=== PATIENT | male | born 1985 | race Caucasian/White ===

== ENCOUNTER 2019-06-23 13:24 | Emergency (ER) | payer OTHER ==
[~2019-06-23] VITALS: Ht 180.3 cm; Wt 101.6 kg
[~2019-06-23 13:24] MED LIST: CARAFATE1 GM PO; CYCLOBENZAPRINE10 MG PO; CYMBALTA60 MG PO; DEXILANT60 MG PO; FEROSUL325 MG PO; LEXAPRO10 MG PO; NORCO 10-325 T1 EACH PO; OMEPRAZOLE20 MG PO; PANTOPRAZOLE SO40 MG PO; PROTONIX40 MG PO; ZOFRAN4 MG PO
--- OUTSIDE RECORDS SUMMARY | 2019-06-23 13:28 | XMS ---
PreManage Notification: AARON BONILLA Security Manager Transit Events No recent Security Events currently on file [facility] There are no care providers on record at this time. Fredy has no Care Guidelines for this patient. Sharda VISIT COUNT (12 MO.) 1 [facility] TOTAL 1 NOTE: Visits indicate total known visits. ED/C VISIT TRACKING (12 MO.) 06/23/2019 13:25 [facility] [place] TYPE: Emergency COMPLAINT: - ABD PAIN INPATIENT VISIT TRACKING (12 MO.) No inpatient visits to display in this time frame [id number]
[2019-06-23] MEDS ORDERED: ZITHROMAX250 MG PO (17:53)
== END 2019-06-23 18:36 | disposition home or self-care (01) ==
LOC: ED 13:24
DX: J18.9 Pneumonia, unspecified organism (principal); Z88.5 Allergy status to narcotic agent; Z79.899 Other long term (current) drug therapy
CPT/HCPCS: 71045; 80053; 81001; 85025; 87502; 96361; 96374; 96375; 99283-25; J1885; J2405; J7030

== ENCOUNTER 2019-06-25 18:32 | Emergency (ER) | payer OTHER ==
[~2019-06-25] VITALS: Ht 180.3 cm; Wt 101.6 kg
[~2019-06-25 18:32] MED LIST changes: +ZITHROMAX250 MG PO
--- OUTSIDE RECORDS SUMMARY | 2019-06-25 18:34 | XMS ---
PreManage Notification: AARON BONILLA Security Rn Clinical Appeals Events No recent Security Events currently on file CRITERIA MET - [facility] [place] - 2 Visits in 30 Days CARE PROVIDERS There are no care providers on record at this time. Fredy has no Care Guidelines for this patient. [facility]: Visits indicate total known visits. ED/UCC VISIT TRACKING (12 MO.) 06/25/2019 18:[address] [facility] [place] TYPE: Emergency COMPLAINT: - SOB/COUGH 06/23/2019 13:25 [facility] [place] TYPE: Emergency COMPLAINT: - ABD PAIN INPATIENT VISIT TRACKING (12 MO.) No inpatient visits to display in this time frame [id number]
[2019-06-25] MEDS ORDERED: ULTRAM50 MG PO (19:53)
[2019-06-25] MEDS ORDERED: LEVAQUIN750 MG PO (19:53)
== END 2019-06-25 20:04 | disposition home or self-care (01) ==
LOC: ED 18:32
DX: J18.1 Lobar pneumonia, unspecified organism (principal); M54.9 Dorsalgia, unspecified; Z88.5 Allergy status to narcotic agent; Z79.899 Other long term (current) drug therapy
CPT/HCPCS: 71046; 99283-25

== ENCOUNTER 2020-02-05 22:42 | Emergency (ER) | payer OTHER ==
[~2020-02-05] VITALS: Ht 180.3 cm; Wt 102.1 kg
--- OUTSIDE RECORDS SUMMARY | ~2020-02-05 | XMS | Encounter Summary ---
Demographics + + + | Address | [address] | | | [place] [address] | + + + | Home Phone | | + + + | Preferred Language | Unknown | + + + | Marital Status | | + + + | Hinduism Affiliation | Unknown | + + + | Race | White | + + + | Ethnic Group | Not or | + + + Author + + + | Author | [facility] | | | and [place] | + + + | Organization | [facility] | | | and [place] | + + + | Address | Unknown | + + + | Phone | Unavailable | + + + Support + + + + + | Name | Relationship | Address | Phone | + + + + + | Scout Balderas | ECON | [address] | | | | | [place] | | | | | [phone] | | + + + + + | Bessie Vizcaino | ECON | [place] | | | | | [phone] | | + + + + + Care Team Providers + +------+ + | Care Header Dock Name | Role | Phone | + +------+ + | Jose Manuel Zuñiga DO | PCP | | + +------+ + Encounter Details +--------+ + + + + | Date | Type | Department | Care Team | Description | +--------+ + + + + | 08/12/ | Hospital | [facility] | Kg, | Cavitary lesion of | | 2014 - | Encounter | [facility] | MD [address] | lung; SOB (shortness | | | | C[address] | of breath); GERD | | 08/16/ | | [address] | [place] [address] | (gastroesophageal | | 2013 | | [place], [place] | [phone] | reflux disease); | | | | [phone] | | Back pain; Cough; | | | | [phone] | | Anxiety state, | | | | | | unspecified | +--------+ + + + + Social History + +-------+ +--------+------+ | Tobacco Use | Types | Packs/Day | Years | Date | | | | | Used | | + +-------+ +--------+------+ | Never Assessed | | | | | + +-------+ +--------+------+ + + + | Sex Assigned at | Date Recorded | | | | + + + | Not on file | | + + + documented as of this encounter Discharge Summaries Luna Chi MD - 08/16/2013 8:39 AM PDT Discharge Summaries by Luna Chi MD at 08/16/13 0839 Author: Luna Chi MD Service: (none) Author Type: Physician Filed: 08/16/13 1633 Date of Service: 08/16/1339 Status: Signed Foot Caster: Luna Chi MD (Physician) Related Notes: Original Note by Luna Chi MD (Physician) filed at 08/16/13 0843 [facility] Service: Hospitalist Physician Discharge Summary Patient ID: Aaron Balderas [id number] 28 y.o. Admit date: 08/12/2013 Discharge date: 08/16/2013 Admitting Physician: Reg Saul MD Discharge Physician: Luna Chi MD Consultants: Treatment Team: Consulting Physician: Elvira García MD Consulting Physician: Hermilo Roberts MD Admitting Provider: Reg Saul MD Primary Discharge Diagnoses: *Cavitary lesion of lung status post bronchoscopy by Dr. Roberts Secondary Discharge Diagnoses: Cough GERD (gastroesophageal reflux disease) Back pain Anxiety state, unspecified HPI and Hospital Course: The patient is a 28 y.o. male with significant past medical history of PUD, GERD who prese nts with Cough, SOB, nausea The patient is a 28-year-old male with a significant past medical history of peptic ulcer d isease and GERD who was transferred from [facility] due to cough, shortness of b reath, and nausea. The patient refers in the last month a weight loss of around 10 pounds. Bib loya have been accompanied in the past week with a sudden cough, initially dry, then subsequ ently productive, with greenish sputum and some tinged with blood in the sputum and some christo rtness of breath at maximal activity. The patient denies any fever but positive chills. Lauro es being out of the country, denies any pets at home, no alcohol intake, but does refer zak re acid reflux to the point that he needs to sleep at 35 degrees and the reports episod es of aspiration in the middle of the night. The patient did have an EGD last summer where loco guerrero was diagnosed with severe acid reflux and peptic ulcer disease for which he is taking PPI therapy. He started developing besides the cough and shortness of breath, nausea and headache, reaso n why he went to the hospital at [facility] for further assessment and treatment . In [facility], a CT of the chest showed an infiltrate surrounding a cavitary l esion in the left posterior lung, reason why the patient was transferred here at [facility] for further assessment and treatment. Here at [facility], the patient has been hemodynamically stable and will be admitted under the hospitalist service. The patient was admitted with cavitary lung lesion. Pulmonary consult was obtained by Dr. Bib aquino, also infectious diseases consult was obtained. He was started empirically on clindamycin . The patient underwent bronchoscopy, which did not show definite mass. Biopsy results are s till pending. Dr. Roberts recommended clindamycin. The patient was seen this morning by Dr. Rouse and will be discharged home on oral clindamycin. The patient had significant anxiety requiring Ativan. He will be discharged home on Xanax. I have discussed with the patient that he will not receive a lot of Xanax as this can be add icting. He verbalized understanding. The patient also complained of pain in the thoracic area. MRI was done which showed no acut e findings. The patient has remained hemodynamically stable, ambulating. He will follow up with Dr. Roberts and with infectious diseases as outpatient. Plan has been discussed in detail with the lamar ent and his and all questions were answered. Past Medical History: Past Medical History Diagnosis Date Kidney stones Past Surgical History Procedure Date Cholecystectomy Unlisted procedure arthroscopy left knee Bronchoscopy 08/15/2013 Procedure: BRONCHOSCOPY; Surgeon: Hermilo Roberts MD; Location: [facility]; Service: Pulmonary; Laterality: Bilateral; NPO after 8 am. He had clear liquid for breakfast today . Discharged Condition: Stable for discharge as stated above. Significant Diagnostic Studies: Mri Thoracic Spine With And Without Contrast 08/14/2013 1. Normal MRI examination of the thoracic spine. X-ray Chest 1 View 08/15/2013 1. No evidence of pneumothorax following bronchoscopy. X-ray C-arm Fluoro Up To 1 Hour 08/15/2013 1. Procedural films, as above. Discharge Vitals: Filed Vitals: 08/15/13 1913 08/16/13 0002 08/16/13 0333 08/16/13 0754 BP: 106/58 108/51 107/51 117/59 Pulse: 51 50 50 55 Temp: 97.4 F (36.3 C) 97.6 F (36.4 C) 98.6 F (37 C) 97.9 F (36.6 C) TempSrc: Temporal Oral Temporal Oral Resp: 16 16 16 14 Height: Weight: 92.5 kg (203 lb 14.8 oz) SpO2: 98% 96% 98% 97% Discharge Exam: General: Well nourished. Psych: Alert and oriented x 3. Calm, cooperative. Cardiovascular: Regular rate and rhythm, no murmurs, no thrills. Normal PMI. Respiratory: Clear to auscultation, no wheezing or crackles, breathing non labored. Tendern ess present left lower chest wall Gastrointestinal: Soft, non-tender, non-distended, positive bowel sounds. No HSM. Musculoskeletal: No edema in bilateral lower extremities. No joint swelling. Tenderness pr esent over mid thoracic spine Skin: Warm and dry, no rashes. Neck: No JVD, Trachea midline. Neurological: Non focal. Motor grossly intact. LABS: Lab 08/16/1345708/15/132 08/14/13 0436 WBC 9.9 5.9 6.5 RBC 5.27 5.39 5.28 HGB 15.3 15.4 15.2 HCT 44.4 45.8 44.9 MCV 84.2 85.1 85.1 MCH 29.0 28.6 28.8 MCHC 34.5 33.5 33.9 RDW 36.8* 36.8* 38.1 PLT 272 217 247 MPV 8.0 7.7 7.9 DIFFTYPE MANUAL AUTOMATED AUTOMATED Lab 08/16/1345708/15/13 0502 08/14/13 0436 08/12/13 0526 NA 134* 139 139 -- K 4.2 3.9 4.1 -- CL 102 102 106 -- CO2 27 29 28 -- BUN 14 13 15 -- CREATININE 0.93 0.96 1.04 -- CALCIUM -- -- -- -- PROT -- -- -- 6.3 BILITOT -- -- -- 1.7* ALKPHOS -- -- -- -- ALT -- -- -- 24 AST -- -- -- 20 GLUF 116* 93 93 -- No results found for this basename: CKTOTAL:3,TROPONINI:3,TROPONINT:3,CKMBINDEX:[address] 168 hours Lab 08/12/13 0526 PHOS 2.7 Lab 08/12/13 0526 MG 2.3 Disposition: Home Follow up: OSWALDO Ritter In 1 week Hermilo Roberts MD [address] [address] Schedule an appointment as soon as possible for a visit in [address] [place] [address] Schedule an appointment as soon as possible for a visit in 1 week Medication List As of 08/16/2013 8:39 AM START taking these medications ALPRAZolam 0.25 MG tablet QTY: 30 tablet Refills: 0 Commonly known as: XANAX Take 1 tablet by mouth 2 (two) times daily as needed for Anxiety. clindamycin 300 MG capsule QTY: 40 capsule Refills: 0 Commonly known as: CLEOCIN Take 1 capsule by mouth every 6 (six) hours. lactobacillus granules QTY: 20 packet Refills: 0 Take 1 packet by mouth 2 (two) times daily. 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 You may get these medications from any pharmacy. ALPRAZolam 0.25 MG tablet clindamycin 300 MG capsule lactobacillus granules Luna Chi MD 08/16/2013 8:39 AM Discharge took minutes, to include final examination, discussion of admission, and prepar ation of prescriptions, instructions for ongoing care, follow up and dictation of summary. This entry has been created using [employer] Speech Recognition software and [employer]. The entry has been reviewed and there may still exist sound alike word errors. documented in th is encounter Progress Notes Conversion Transaction, Provider Unknown - 08/16/2013 9:39 AM PDTFormatting of this note m ight be different from the original. Therapy Progress Note by AKHIL Estevez at 08/16/13 09 Author: AKHIL Estevez Service: (none) Author Type: Massage Therapist Filed: 08/16/13938 Date of Service: 08/16/13938 Status: Signed Foot Caster: AKHIL Estevez (Massage Therapist) 08/16/13 0939 MT Last Visit MT Received On 08/16/13 MT Therapy Visit Refused Kevin Swann DO - 08/16/2013 8:02 AM PDTFormatting of this note might be different from the delmar ginal. Progress Notes by Kevin Rouse DO at 08/16/13 0802 Author: Kevin Rouse DO Service: (none) Author Type: Physician Filed: 08/16/13 0823 Date of Service: 08/16/1302 Status: Addendum Foot Caster: Kevin Rouse DO (Physician) Related Notes: Original Note by Kevin Rouse DO (Physician) filed at 08/16/13 0821 [facility] Service: Infectious Disease Progress Note Hospital Day: LOS: 4 days Post-Op Day: * No surgery found * SUBJECTIVE Patient Summary: The patient is a 28 y.o. male with no significant past medical histo ry admitted with cough and presence of cavitary lesion on CT scan. Patient first presented to [facility] on 08/11 with complaints of cough that was productive of greenish sputum. There is some history of loss of weight. A CT scan done ther e shows presence of a cavitary mass about 3 cm in the left lung base. Presence of dilated es ophagus. No significant adenopathy noted but possible thymus tissue-2 cm soft tissue density in the anterior mediastinum. At that time he had a marginal white count of 11.2, ESR was on ly 14, creatinine normal, CMP normal. Patient does have a history of GERD with the need to lie down at at least 35 at night. No history of exposure to sick contacts. No travel outside of [place]. Smoking -patient has smoked for about 2 years past quit and then again smoked for about 4 m onths. Not a heavy smoker. CC: Cavitary lesion Chart reviewed: No new events. Subjective The patient reports that he has some pain in his anterior chest with cough or deep inspirat ion, but pain in the posterior chest is improved. He denies any shortness of breath. No fe vers, chills, nausea or vomiting. He is feeling better overall and is hoping that he can go home today. He asked whether he can be given something for anxiety when he is discharged. ROS No fever, chills sweats. No nausea, vomiting or diarrhea. No rashes or pruritis. No oral pa in. Scheduled Medications [COMPLETED] benzocaine [] benzocaine clindamycin 600 mg Intravenous Q8H [] fentaNYL lidocaine 1 patch Transdermal Daily [] midazolam nicotine 1 patch Transdermal Daily pantoprazole 40 mg Intravenous BID [DISCONTINUED] cefTRIAXone 2 g Intravenous Q24H [DISCONTINUED] clindamycin 600 mg Intravenous Q8H [DISCONTINUED] cocaine [DISCONTINUED] EPINEPHrine (1:10,000) Continuous Infusions PRN Medications acetaminophen, acetaminophen, diphenhydrAMINE, fentaNYL, fentaNYL, ipratropium-albuterol, L ORazepam, ondansetron, ondansetron, polyethylene glycol, promethazine, sodium chloride 0.9 % , traMADol, zolpidem, [DISCONTINUED] fentaNYL, [DISCONTINUED] fentaNYL, [DISCONTINUED] meper idine, [DISCONTINUED] meperidine, [DISCONTINUED] meperidine, [DISCONTINUED] metoclopramide, [DISCONTINUED] naloxone, [DISCONTINUED] ondansetron, [DISCONTINUED] promethazine OBJECTIVE Vital Signs: BP 117/59 | Pulse 55 | Temp 97.9 F (36.6 C) (Oral) | Resp 14 | Ht 1.803 m (5' 11") | Wt 92.5 kg (203 lb 14.8 oz) | BMI 28.45 kg/m2 | SpO2 97% Temp: [97.4 F (36.3 C)-98.6 F (37 C)] 97.9 F (36.6 C) (08/16 753) BP: (98-119)/(40-59) 117/59 mmHg (08/16 753) Heart Rate: [50-65] 55 (08/16 753) Resp: [14-20] 14 (08/16 753) SpO2: [96 %-100 %] 97 % (08/16 753) Weight: [92.5 kg (203 lb 14.8 oz)] 92.5 kg (203 lb 14.8 oz) (08/16 332) Exam: Const: Vitals reviewed. No acute distress Skin: No rashes, no edema ENT: No thrush. Lungs: CTAB, no rales or wheezes Heart: RRR, no murmur Abd: soft, NT, + bowel sounds Musculoskeletal: No tenderness to palpation in thoracic spine. DATA CBC: Lab Results Component Value Date WBC 9.9 08/16/2013 RBC 5.27 08/16/2013 HGB 15.3 08/16/2013 HCT 44.4 08/16/2013 MCV 84.2 08/16/2013 MCH 29.0 08/16/2013 MCHC 34.5 08/16/2013 RDW 36.8* 08/16/2013 PLT 272 08/16/2013 MPV 8.0 08/16/2013 DIFFTYPE MANUAL 08/16/2013 WBC: Lab Results Component Value Date WBC 9.9 08/16/2013 NEUTABSMAN 8.2* 08/16/2013 NEUTROABS 2.9 08/15/2013 NEUTROMAN 83 08/16/2013 LYMPHOABS 1.2 08/16/2013 LYMPHOMAN 12 08/16/2013 LYMPHSABS 2.3 08/15/2013 LYMPHOPCT 39.6 08/15/2013 MONOABSMAN 0.5 08/16/2013 MONOMAN 5 08/16/2013 MONOPCT 7.5 08/15/2013 EOSABS 0.2 08/15/2013 EOSPCT 2.8 08/15/2013 BASOSABS 0.1 08/15/2013 BASOPCT 1.0 08/15/2013 CMP: Lab Results Component Value Date NA 134* 08/16/2013 K 4.2 08/16/2013 CL 102 08/16/2013 CO2 27 08/16/2013 ANIONGAP 9 08/16/2013 GLUF 116* 08/16/2013 BUN 14 08/16/2013 CREATININE 0.93 08/16/2013 BCR 15 08/16/2013 CA 9.6 08/16/2013 PROT 6.3 08/12/2013 ALB 4.0 08/12/2013 GLOB 2.3 08/12/2013 BILITOT 1.7* 08/12/2013 ALP 68 08/12/2013 AST 20 08/12/2013 ALT 24 08/12/2013 EGFR >60 08/16/2013 Microbiology: Cultures from bronchoscopy pending. Path pending. Medical imaging: Chest x-ray performed following bronchoscopy was viewed in PACS. No evide nce of pneumothorax. No focal consolidation or infiltrates. The area of masslike cavitary lesion in the posterior right lung is not appreciated on plain film to my view. Radiology r eport agrees with absence of pneumothorax. PROBLEM LIST Principal Problem: *Cavitary lesion of lung Active Problems: Cough GERD (gastroesophageal reflux disease) Back pain Anxiety state, unspecified ASSESSMENT & PLAN Cavitary lesion of lung Radiographic appearance and absence of systemic symptoms are most suggestive of malignancy, although indolent infectious etiology is also possible. Appreciate bronchoscopy and biopsy . After blood cultures should be available within the next few days, although cultures for some of the more fasting these organisms such as Nocardia could take over a week. We will c ontinue clindamycin for now which can be given orally. Followup in the ID clinic in 1-2 wee ks to review culture results and pathology. The patient was advised to call sooner if he fitzgerald s any worsening cough, shortness of breath or fevers. Mid back pain Reassuring examination today. MRI was unremarkable previously. Anxiety Would defer to primary service and to primary care after discharge. The patient expressed understanding. Disposition: Ready for discharge from infectious diseases standpoint. He will need a ten-d ay supply of clindamycin and to followup in the ID clinic in 1-[address] Chi. Code Status: Full Code KEVIN ROUSE DO 08/16/2013 Physical Exam an, Hermilo Garcia MD - 0 08/15/2013 5:04 PM PDT Progress Notes by Hermilo Roberts MD at 08/15/131703 Author: Hermilo Roberts MD Service: (none) Author Type: Physician Filed: 08/15/131721 Date of Service: 08/15/131703 Status: Signed Foot Caster: Hermilo Roberts MD (Physician) [facility] Service: Pulmonology Progress Note Hospital Day: LOS: 3 days Post-Op Day: Day of Surgery SUBJECTIVE Patient Summary: Events Overnight: For bronchoscopy today under general anesthesia.Consent was signed last night. On IV clindamycin. Scheduled Medications [COMPLETED] benzocaine benzocaine clindamycin 600 mg Intravenous Q8H cocaine EPINEPHrine (1:10,000) fentaNYL lidocaine 1 patch Transdermal Daily midazolam nicotine 1 patch Transdermal Daily pantoprazole 40 mg Intravenous BID [DISCONTINUED] cefTRIAXone 2 g Intravenous Q24H [DISCONTINUED] clindamycin 600 mg Intravenous Q8H [DISCONTINUED] heparin (porcine) 5,000 Units Subcutaneous Q8H Continuous Infusions PRN Medications acetaminophen, acetaminophen, diphenhydrAMINE, fentaNYL, fentaNYL, ipratropium-albuterol, L ORazepam, ondansetron, ondansetron, polyethylene glycol, promethazine, sodium chloride 0.9 % , traMADol, zolpidem OBJECTIVE Vital Signs: BP 98/53 | Pulse 58 | Temp 97.9 F (36.6 C) (Oral) | Resp 16 | Ht 1.803 m (5' 11") | Wt 94.5 kg (208 lb 5.4 oz) | BMI 29.07 kg/m2 | SpO2 98% Intake/Output Summary (Last 24 hours) at 08/15/13 1708 Last data filed at 08/15/13 1512 Gross per 24 hour Intake 2002 ml Output 500 ml Net 1502 ml Physical Exam Constitutional: He appears well-developed and well-nourished. No distress. HENT: Head: Normocephalic and atraumatic. Nose: Nose normal. Mouth/Throat: Oropharynx is clear and moist. No oropharyngeal exudate. Eyes: Conjunctivae normal are normal. Pupils are equal, round, and reactive to light. No sc leral icterus. Neck: Normal range of motion. Neck supple. No JVD present. No tracheal deviation present. N o thyromegaly present. Cardiovascular: Normal rate, regular rhythm, normal heart sounds and intact distal pulses. Exam reveals no gallop and no friction rub. No murmur heard. Pulmonary/Chest: Effort normal and breath sounds normal. No stridor. No respiratory distres s. He has no wheezes. He has no rales. He exhibits no tenderness. Abdominal: Soft. Bowel sounds are normal. He exhibits no distension and no mass. There is n o tenderness. There is no rebound. Musculoskeletal: Normal range of motion. He exhibits no edema and no tenderness. Lymphadenopathy: He has no cervical adenopathy. Skin: Skin is warm. No rash noted. He is not diaphoretic. No erythema. No pallor. DATA CBC: Lab Results Component Value Date WBC 5.9 08/15/2013 RBC 5.39 08/15/2013 HGB 15.4 08/15/2013 HCT 45.8 08/15/2013 MCV 85.1 08/15/2013 MCH 28.6 08/15/2013 MCHC 33.5 08/15/2013 RDW 36.8* 08/15/2013 PLT 217 08/15/2013 MPV 7.7 08/15/2013 DIFFTYPE AUTOMATED 08/15/2013 CMP: Lab Results Component Value Date NA 139 08/15/2013 K 3.9 08/15/2013 CL 102 08/15/2013 CO2 29 08/15/2013 ANIONGAP 12 08/15/2013 GLUF 93 08/15/2013 BUN 13 08/15/2013 CREATININE 0.96 08/15/2013 BCR 14 08/15/2013 CA 8.6 08/15/2013 PROT 6.3 08/12/2013 ALB 4.0 08/12/2013 GLOB 2.3 08/12/2013 BILITOT 1.7* 08/12/2013 ALP 68 08/12/2013 AST 20 08/12/2013 ALT 24 08/12/2013 EGFR >60 08/15/2013 PT/INR: Lab Results Component Value Date INR 1.0 08/13/2013 Plarelet function screen is normal. PROBLEM LIST Principal Problem: *Cavitary lesion of lung Active Problems: Cough GERD (gastroesophageal reflux disease) Back pain Anxiety state, unspecified ASSESSMENT & PLAN CXR post bronchoscopy did not show pneumothorax. He was smiling post extubation. He tolerated the procedure very well. Continue IV clindamycin . Consider d/c tomorrow. I will be glad to see the patient next aranza wiliknson for follow up visit. Disposition: Code Status: Full Code HERMILO ROBERTS MD 08/15/2013 uresh, Elvira Paredes MD - 08/15/2013 9:08 AM PDT Progress Notes by Elvira García MD at 08/15/13 0908 Author: Elvira García MD Service: (none) Author Type: Physician Filed: 08/15/13 1030 Date of Service: 08/15/13 0908 Status: Signed Foot Caster: Elvira García MD (Physician) [facility] Service: Infectious Disease Progress Note Hospital Day: LOS: 3 days Post-Op Day: * No surgery found * SUBJECTIVE Patient Summary: The patient is a 28 y.o. male with no significant past medical histo ry admitted with cough and presence of cavitary lesion on CT scan. Patient first presented to [facility] on 08/11 with complaints of cough that was productive of greenish sputum. There is some history of loss of weight. A CT scan done ther e shows presence of a cavitary mass about 3 cm in the left lung base. Presence of dilated es ophagus. No significant adenopathy noted but possible thymus tissue-2 cm soft tissue density in the anterior mediastinum. At that time he had a marginal white count of 11.2, ESR was on ly 14, creatinine normal, CMP normal. Patient does have a history of GERD with the need to lie down at at least 35 at night. No history of exposure to sick contacts. No travel outside of [place]. Smoking -patient has smoked for about 2 years past quit and then again smoked for about 4 m onths. Not a heavy smoker. Events Overnight: Plan for bronchoscopy under general anesthesia this evening. Subjective No significant productive cough or breathlessness at this time Denies any nausea vomiting or diarrhea No rash Scheduled Medications clindamycin 600 mg Intravenous Q8H lidocaine 1 patch Transdermal Daily nicotine 1 patch Transdermal Daily pantoprazole 40 mg Intravenous BID [DISCONTINUED] cefTRIAXone 2 g Intravenous Q24H [DISCONTINUED] clindamycin 600 mg Intravenous Q8H [DISCONTINUED] heparin (porcine) 5,000 Units Subcutaneous Q8H Continuous Infusions PRN Medications acetaminophen, acetaminophen, diphenhydrAMINE, fentaNYL, fentaNYL, [COMPLETED] gadobenate d imeglumine, ipratropium-albuterol, LORazepam, ondansetron, ondansetron, polyethylene glycol, promethazine, sodium chloride 0.9 %, traMADol, zolpidem OBJECTIVE Vital Signs: BP 111/52 | Pulse 51 | Temp 97.5 F (36.4 C) (Oral) | Resp 16 | Ht 1.803 m (5' 11") | Wt 94.5 kg (208 lb 5.4 oz) | BMI 29.07 kg/m2 | SpO2 100% Temp: [97.4 F (36.3 C)-98.3 F (36.8 C)] 97.5 F (36.4 C) (08/15 714) BP: (108-113)/(50-89) 111/52 mmHg (08/15 714) Heart Rate: [51-85] 51 (08/15 714) Resp: [16-18] 16 (08/15 714) SpO2: [96 %-100 %] 100 % (08/15 714) Weight: [94.5 kg (208 lb 5.4 oz)] 94.5 kg (208 lb 5.4 oz) (08/15 0330) Vitals reviewed appears nontoxic No thrush Lungs-no significant also rhonchi appreciated Abdomen soft No rash Alert and appropriate DATA CBC: Lab Results Component Value Date WBC 5.9 08/15/2013 RBC 5.39 08/15/2013 HGB 15.4 08/15/2013 HCT 45.8 08/15/2013 MCV 85.1 08/15/2013 MCH 28.6 08/15/2013 MCHC 33.5 08/15/2013 RDW 36.8* 08/15/2013 PLT 217 08/15/2013 MPV 7.7 08/15/2013 DIFFTYPE AUTOMATED 08/15/2013 WBC: Lab Results Component Value Date WBC 5.9 08/15/2013 NEUTROABS 2.9 08/15/2013 LYMPHSABS 2.3 08/15/2013 LYMPHOPCT 39.6 08/15/2013 MONOPCT 7.5 08/15/2013 EOSABS 0.2 08/15/2013 EOSPCT 2.8 08/15/2013 BASOSABS 0.1 08/15/2013 BASOPCT 1.0 08/15/2013 CMP: Lab Results Component Value Date NA 139 08/15/2013 K 3.9 08/15/2013 CL 102 08/15/2013 CO2 29 08/15/2013 ANIONGAP 12 08/15/2013 GLUF 93 08/15/2013 BUN 13 08/15/2013 CREATININE 0.96 08/15/2013 BCR 14 08/15/2013 CA 8.6 08/15/2013 PROT 6.3 08/12/2013 ALB 4.0 08/12/2013 GLOB 2.3 08/12/2013 BILITOT 1.7* 08/12/2013 ALP 68 08/12/2013 AST 20 08/12/2013 ALT 24 08/12/2013 EGFR >60 08/15/2013 PROBLEM LIST Principal Problem: *Cavitary lesion of lung Active Problems: Cough GERD (gastroesophageal reflux disease) Back pain Anxiety state, unspecified ASSESSMENT & PLAN Cavitary lesion of lung This appears to be more of a mass that is cavitating and is concerning for tumor with secon tona cavitation. We will DC ceftriaxone-sputum positive for normal gary only Since patient did have recent worsening with the greenish sputum and presence of cavitary l esion-we will continue clindamycin for now. Noted plan for bronchoscopy later this evening. We will review reports and decide about continuation of antibiotics Dr. Rouse will be on hospital ID service from tomorrow. Code Status: Full Code Elvira García MD 08/15/2013 onversio n Transaction, Provider Unknown - 08/15/2013 8:05 AM PDTFormatting of this note might be di fferent from the original. Nurse Progress Note by Ihsan Justice RN at 08/15/13804 Author: Ihsan Justice RN Service: (none) Author Type: Registered Nurse Filed: 08/15/13813 Date of Service: 08/15/13804 Status: Signed Foot Caster: Ihsan Justice RN (Registered Nurse) Pt states that he twisted his ankle on a part of the bed. "Actually, I think I retwisted it . I twisted it before." Declines interventions at this time. Luna Conde MD - 08/15/2013 7:47 AM PDTFormatting of this note might be different from t he original. Progress Notes by Luna Chi MD at 08/15/13 0751 Author: Luna Chi MD Service: (none) Author Type: Physician Filed: 08/15/13 0754 Date of Service: 08/15/13 0783 Status: Signed Foot Caster: Luna Chi MD (Physician) [facility] Service: Hospitalist Progress Note Hospital Day: LOS: 3 days SUBJECTIVE Patient Summary: From [facility] The patient is a 28 y.o. male with significant past medical history of PUD, GERD who prese nts with Cough, SOB, nausea The patient is a 28-year-old male with a significant past medical history of peptic ulcer d isease and GERD who was transferred from [facility] due to cough, shortness of b reath, and nausea. The patient refers in the last month a weight loss of around 10 pounds. T hese have been accompanied in the past week with a sudden cough, initially dry, then subsequ ently productive, with greenish sputum and some tinged with blood in the sputum and some christo rtness of breath at maximal activity. The patient denies any fever but positive chills. Lauro rai being out of the country, denies any pets at home, no alcohol intake, but does refer zak warren acid reflux to the point that he needs to sleep at 35 degrees and the reports episod es of aspiration in the middle of the night. The patient did have an EGD last summer where loco guerrero was diagnosed with severe acid reflux and peptic ulcer disease for which he is taking PPI therapy. Tonight, he started developing besides the cough and shortness of breath, nausea and headac he, reason why he went to the hospital at [facility] for further assessment and treatment. In [facility], a CT of the chest showed an infiltrate surrounding a c avitary lesion in the left posterior lung, reason why the patient was transferred here at [facility] for further assessment and treatment. Here at [facility], the patient has been hemodynamically stable and will be admitted under the spitalist service. Events Overnight: Patient complaints of anxiety and left ankle pain. Patient states i n the night he twisted his ankle. He also complains of back pain, which is better controlled today. Cough is getting better Patient scheduled for bronchoscopy today Scheduled Medications cefTRIAXone 2 g Intravenous Q24H clindamycin 600 mg Intravenous Q8H lidocaine 1 patch Transdermal Daily nicotine 1 patch Transdermal Daily pantoprazole 40 mg Intravenous BID [DISCONTINUED] heparin (porcine) 5,000 Units Subcutaneous Q8H Continuous Infusions PRN Medications acetaminophen, acetaminophen, diphenhydrAMINE, fentaNYL, fentaNYL, [COMPLETED] gadobenate d imeglumine, ipratropium-albuterol, LORazepam, ondansetron, ondansetron, polyethylene glycol, promethazine, sodium chloride 0.9 %, traMADol, zolpidem OBJECTIVE Vital Signs: BP 111/52 | Pulse 51 | Temp 97.5 F (36.4 C) (Oral) | Resp 16 | Ht 1.803 m (5' 11") | Wt 94.5 kg (208 lb 5.4 oz) | BMI 29.07 kg/m2 | SpO2 100% Patient Vitals for the past 24 hrs: BP Temp Temp src Pulse Resp SpO2 Weight 08/15/13 0715 111/52 mmHg 97.5 F (36.4 C) Oral 51 16 100 % - 08/15/13 0330 112/50 mmHg 97.4 F (36.3 C) Oral 85 18 98 % 94.5 kg (208 lb 5.4 oz) 08/14/13 2302 108/51 mmHg 97.5 F (36.4 C) Oral 78 18 98 % - 08/14/132017 113/89 mmHg 97.8 F (36.6 C) Oral 58 18 98 % - 08/14/13 1535 113/57 mmHg 98.3 F (36.8 C) Oral 59 16 96 % - 08/14/13 1110 109/56 mmHg 98.1 F (36.7 C) Oral 66 16 97 % - Intake/Output Summary (Last 24 hours) at 08/15/13 0748 Last data filed at 08/15/13 0512 Gross per 24 hour Intake 2150 ml Output 500 ml Net 1650 ml Physical Exam: Constitutional: Alert and oriented to person, place, and time. HEENT: Neck supple, no JVD, non icteric sclera. Cardiovascular: Normal rate, regular rhythm, normal heart sounds with S1 and S2, . Exam re veals no gallop and no friction rub. No murmur heard. No S3, No S4 Pulmonary/Chest: Effort normal and breath sounds normal. No stridor. No respiratory distres s. no wheezes. no rales. exhibits no tenderness. Abdominal: Soft. Bowel sounds are normal. exhibits no distension and no mass. There is no t enderness. There is no rebound and no guarding. Extremeties/Musculoskeletal: exhibits no edema. Tenderness present over the lower thoraci c spine .minimal tenderness present over the medial aspect of the left ankle joint. No swell ing noted. Pain noted on dorsiflexion . Neurological: Alert and oriented to person, place, and time. Skin: Skin is warm and dry. Psychiatric: Patient is anxious DATA Lab 08/15/13 0502 08/14/13 0436 08/13/13 0429 WBC 5.9 6.5 6.6 RBC 5.39 5.28 4.96 HGB 15.4 15.2 14.6 HCT 45.8 44.9 42.0 MCV 85.1 85.1 84.6 MCH 28.6 28.8 29.5 MCHC 33.5 33.9 34.8 RDW 36.8* 38.1 37.6 PLT 217 247 234 MPV 7.7 7.9 8.1 DIFFTYPE AUTOMATED AUTOMATED AUTOMATED Lab 08/15/13 0502 08/14/13 0436 08/12/13 0526 NA 139 139 138 K 3.9 4.1 3.8 CL 102 106 106 CO2 29 28 28 BUN 13 15 14 CREATININE 0.96 1.04 0.89 CALCIUM -- -- -- PROT -- -- 6.3 BILITOT -- -- 1.7* ALKPHOS -- -- -- ALT -- -- 24 AST -- -- 20 GLUF 93 93 92 Lab 08/12/13 0526 PHOS 2.7 Lab 08/12/13 0526 MG 2.3 . MRI thoracic spine. No acute findings PROBLEM LIST Principal Problem: *Cavitary lesion of lung Active Problems: Cough GERD (gastroesophageal reflux disease) Back pain Anxiety state, unspecified ASSESSMENT & PLAN 1. Cavitary lung lesion. . The patient scheduled for bronchoscopy later today. Continue cli ndamycin and ceftriaxone awaiting bronchoscopy results. Patient off isolation. AFB negative x1. 2. Cough has improved. 3. Back pain. We will continue Lidoderm patch. No acute findings on MRI 4. Anxiety. Continue IV Ativan as needed. 5. GERD. Will continue proton-pump inhibitor. 6. Tobacco abuse. Continue nicotine patch. 7. DVT prophylaxis. Continue heparin. 8. Left ankle pain continue ice application. No swelling noted. Patient does not want to ge t any x-rays. Most probably sprained ankle. The plan has been discussed in detail with the patient. All questions were answered. Disposition: Pending inpatient course Code Status: Full Code Luna Chi MD 08/15/2013 7:48 AM This entry has been created using [employer] Speech Recognition software and [employer]. The entry has been reviewed and there may still exist sound alike word errors. LTan, Hermilo Garcia MD - 08/14/2013 7:09 PM PDT Progress Notes by Hermilo Roberts MD at 08/14/13 0396 Author: Hermilo Roberts MD Service: (none) Author Type: Physician Filed: 08/14/131932 Date of Service: 08/14/131908 Status: Signed Foot Caster: Hermilo Roberts MD (Physician) [facility] Service: Pulmonology Progress Note Hospital Day: LOS: 2 days Post-Op Day: * No surgery found * SUBJECTIVE Patient Summary: Events Overnight: He was transferred out of respiratory isolation since last night. L ast sputum for AFB was not collected.He is still very anxious requiring lorazepam prn. Scheduled Medications cefTRIAXone 2 g Intravenous Q24H clindamycin 600 mg Intravenous Q8H heparin (porcine) 5,000 Units Subcutaneous Q8H lidocaine 1 patch Transdermal Daily nicotine 1 patch Transdermal Daily pantoprazole 40 mg Intravenous BID Continuous Infusions PRN Medications acetaminophen, acetaminophen, diphenhydrAMINE, fentaNYL, fentaNYL, [COMPLETED] gadobenate d imeglumine, ipratropium-albuterol, LORazepam, ondansetron, ondansetron, polyethylene glycol, promethazine, sodium chloride 0.9 %, traMADol, zolpidem OBJECTIVE Vital Signs: BP 113/57 | Pulse 59 | Temp 98.3 F (36.8 C) (Oral) | Resp 16 | Ht 1.803 m (5' 11") | Wt 94.5 kg (208 lb 5.4 oz) | BMI 29.07 kg/m2 | SpO2 96% Intake/Output Summary (Last 24 hours) at 08/14/131908 Last data filed at 08/14/13 1803 Gross per 24 hour Intake 3170 ml Output 504 ml Net 2666 ml Physical Exam Constitutional: He is oriented to person, place, and time. He appears well-developed and we ll-nourished. No distress. HENT: Head: Normocephalic and atraumatic. Nose: Nose normal. Mouth/Throat: Oropharynx is clear and moist. No oropharyngeal exudate. Eyes: Conjunctivae normal are normal. Pupils are equal, round, and reactive to light. No sc leral icterus. Neck: Normal range of motion. Neck supple. No JVD present. No tracheal deviation present. N o thyromegaly present. Cardiovascular: Normal rate, regular rhythm, normal heart sounds and intact distal pulses. Exam reveals no gallop and no friction rub. No murmur heard. Pulmonary/Chest: Effort normal and breath sounds normal. No stridor. No respiratory distres s. He has no wheezes. He has no rales. He exhibits no tenderness. Abdominal: Soft. Bowel sounds are normal. He exhibits no distension and no mass. There is n o tenderness. There is no rebound and no guarding. Musculoskeletal: Normal range of motion. He exhibits no edema and no tenderness. Lymphadenopathy: He has no cervical adenopathy. Neurological: He is alert and oriented to person, place, and time. He has normal reflexes. Skin: Skin is warm. No rash noted. He is not diaphoretic. No erythema. No pallor. DATA CBC: Lab Results Component Value Date WBC 6.5 08/14/2013 RBC 5.28 08/14/2013 HGB 15.2 08/14/2013 HCT 44.9 08/14/2013 MCV 85.1 08/14/2013 MCH 28.8 08/14/2013 MCHC 33.9 08/14/2013 RDW 38.1 08/14/2013 PLT 247 08/14/2013 MPV 7.9 08/14/2013 DIFFTYPE AUTOMATED 08/14/2013 CMP: Lab Results Component Value Date NA 139 08/14/2013 K 4.1 08/14/2013 CL 106 08/14/2013 CO2 28 08/14/2013 ANIONGAP 9 08/14/2013 GLUF 93 08/14/2013 BUN 15 08/14/2013 CREATININE 1.04 08/14/2013 BCR 14 08/14/2013 CA 9.7 08/14/2013 PROT 6.3 08/12/2013 ALB 4.0 08/12/2013 GLOB 2.3 08/12/2013 BILITOT 1.7* 08/12/2013 ALP 68 08/12/2013 AST 20 08/12/2013 ALT 24 08/12/2013 EGFR >60 08/14/2013 PT/INR: Lab Results Component Value Date INR 1.0 08/13/2013 PROBLEM LIST Principal Problem: *Cavitary lesion of lung Active Problems: Cough GERD (gastroesophageal reflux disease) Back pain Anxiety state, unspecified ASSESSMENT & PLAN Schedule for bronchoscopy tomorrow under general anesthesia at 4 pm.He signed the consent. Repeat plate function screening test tomorrow am. Disposition: Code Status: Full Code HERMILO ROBERTS MD 08/14/2013 una Chi MD - 08/14/2013 12:27 PM PDT Progress Notes by Luna Chi MD at 08/14/13 1227 Author: Luna Chi MD Service: (none) Author Type: Physician Filed: 08/14/13 1228 Date of Service: 08/14/131226 Status: Signed Foot Caster: Luna Chi MD (Physician) [facility] Service: Hospitalist Progress Note Hospital Day: LOS: 2 days SUBJECTIVE Patient Summary: From [facility] The patient is a 28 y.o. male with significant past medical history of PUD, GERD who prese nts with Cough, SOB, nausea The patient is a 28-year-old male with a significant past medical history of peptic ulcer d isease and GERD who was transferred from [facility] due to cough, shortness of b reath, and nausea. The patient refers in the last month a weight loss of around 10 pounds. T alisiae have been accompanied in the past week with a sudden cough, initially dry, then subsequ ently productive, with greenish sputum and some tinged with blood in the sputum and some christo rtness of breath at maximal activity. The patient denies any fever but positive chills. Lauro es being out of the country, denies any pets at home, no alcohol intake, but does refer zak re acid reflux to the point that he needs to sleep at 35 degrees and the reports episod es of aspiration in the middle of the night. The patient did have an EGD last summer where loco guerrero was diagnosed with severe acid reflux and peptic ulcer disease for which he is taking PPI therapy. Tonight, he started developing besides the cough and shortness of breath, nausea and headac he, reason why he went to the hospital at [facility] for further assessment and treatment. In [facility], a CT of the chest showed an infiltrate surrounding a c avitary lesion in the left posterior lung, reason why the patient was transferred here at [facility] for further assessment and treatment. Here at [facility], the patient has been hemodynamically stable and will be admitted under the spitalist service. Events Overnight: Patient complains of back pain and anxiety. He denies any shortness of breath, nausea, vomiting. Scheduled Medications cefTRIAXone 2 g Intravenous Q24H clindamycin 600 mg Intravenous Q8H heparin (porcine) 5,000 Units Subcutaneous Q8H lidocaine 1 patch Transdermal Daily nicotine 1 patch Transdermal Daily pantoprazole 40 mg Intravenous BID Continuous Infusions [DISCONTINUED] sodium chloride 110 mL/hr at 08/13/13 0922 PRN Medications acetaminophen, acetaminophen, diphenhydrAMINE, fentaNYL, fentaNYL, ipratropium-albuterol, L ORazepam, ondansetron, ondansetron, polyethylene glycol, promethazine, traMADol, zolpidem OBJECTIVE Vital Signs: BP 109/56 | Pulse 66 | Temp 98.1 F (36.7 C) (Oral) | Resp 16 | Ht 1.803 m (5' 11") | Wt 94.5 kg (208 lb 5.4 oz) | BMI 29.07 kg/m2 | SpO2 97% Patient Vitals for the past 24 hrs: BP Temp Temp src Pulse Resp SpO2 08/14/13 1110 109/56 mmHg 98.1 F (36.7 C) Oral 66 16 97 % 08/14/13 0716 101/51 mmHg - - 56 16 97 % 08/14/13 0441 120/60 mmHg 97.7 F (36.5 C) Oral 64 18 97 % 08/14/13 0027 117/59 mmHg - - - - - 08/14/13 0023 117/74 mmHg - - - - - 08/14/13 0022 84/43 mmHg 97.8 F (36.6 C) Oral 60 18 99 % 08/13/13 1917 135/64 mmHg 97.5 F (36.4 C) Oral 58 18 98 % 08/13/13 1605 132/58 mmHg 98.3 F (36.8 C) Oral 57 16 96 % Intake/Output Summary (Last 24 hours) at 08/14/13 1227 Last data filed at 08/14/13 0830 Gross per 24 hour Intake 1920 ml Output 504 ml Net 1416 ml Physical Exam: Constitutional: Alert and oriented to person, place, and time. HEENT: Neck supple, no JVD, non icteric sclera. Cardiovascular: Normal rate, regular rhythm, normal heart sounds with S1 and S2, . Exam re veals no gallop and no friction rub. No murmur heard. No S3, No S4 Pulmonary/Chest: Effort normal and breath sounds normal. No stridor. No respiratory distres s. no wheezes. no rales. exhibits no tenderness. Abdominal: Soft. Bowel sounds are normal. exhibits no distension and no mass. There is no t enderness. There is no rebound and no guarding. Extremeties/Musculoskeletal: Normal range of motion.. exhibits no edema. Tenderness presen t over the lower thoracic spine Neurological: Alert and oriented to person, place, and time. Skin: Skin is warm and dry. Psychiatric: Patient is very anxious DATA Lab 08/14/13 0436 08/13/13 0429 WBC 6.5 6.6 RBC 5.28 4.96 HGB 15.2 14.6 HCT 44.9 42.0 MCV 85.1 84.6 MCH 28.8 29.5 MCHC 33.9 34.8 RDW 38.1 37.6 PLT 247 234 MPV 7.9 8.1 DIFFTYPE AUTOMATED AUTOMATED Lab 08/14/13 0436 08/12/13 0526 NA 139 138 K 4.1 3.8 CL 106 106 CO2 28 28 BUN 15 14 CREATININE 1.04 0.89 CALCIUM -- -- PROT -- 6.3 BILITOT -- 1.7* ALKPHOS -- -- ALT -- 24 AST -- 20 GLUF 93 92 Lab 08/12/13 0526 PHOS 2.7 Lab 08/12/13 0526 MG 2.3 . PROBLEM LIST Principal Problem: *Cavitary lesion of lung Active Problems: Cough GERD (gastroesophageal reflux disease) Back pain Anxiety state, unspecified ASSESSMENT & PLAN 1. Cavitary lung lesion. . The patient scheduled for bronchoscopy possibly on . Con tinue clindamycin and ceftriaxone. 2. Cough has improved. 3. Back pain. We will continue Lidoderm patch. Will check MRI of the thoracic spine 4. Anxiety. Continue IV Ativan as needed. Patient is very anxious pending procedure. 5. GERD. Will continue proton-pump inhibitor. 6. Tobacco abuse. Continue nicotine patch. 7. DVT prophylaxis. Continue heparin. The plan has been discussed in detail with the patient. All questions were answered. Disposition: Pending inpatient course Code Status: Full Code Luna Chi MD 08/14/2013 12:27 PM This entry has been created using [employer] Speech Recognition software and [employer]. The entry has been reviewed and there may still exist sound alike word errors. onversion Trans action, Provider Unknown - 08/14/2013 9:40 AM PDT Therapy Progress Note by AKHIL Estevez at 08/14/13939 Author: AKHIL Estevez Service: (none) Author Type: Massage Therapist Filed: 08/14/13939 Date of Service: 08/14/13939 Status: Signed Foot Caster: AKHIL Estevez (Massage Therapist) 08/14/13 0939 Massage Therapy Interventions Locations Back Massage Therapy Technique Effleurage;Petrissage;Cypriot massage;Trigger point Response to treatment Decreased pain;Decreased muscle tension Goals Short Term Goal #1 Decreased muscle tension;Decreased pain;Increase comfort;Increased relax ation Bib Thornton MD - 08/13/2013 5:11 PM PDTFormatting of this note might be different from the or iginal. Progress Notes by Hermilo Roberts MD at 08/13/131710 Author: Hermilo Roberts MD Service: (none) Author Type: Physician Filed: 08/13/13 171 Date of Service: 08/13/131710 Status: Signed Foot Caster: eHrmilo Roberts MD (Physician) [facility] Service: Pulmonology Progress Note Hospital Day: LOS: 1 day Post-Op Day: * No surgery found * SUBJECTIVE Patient Summary: Events Overnight: Sputum for AFBx2 was collected today. One ore sputum will be collec corine. I discussed this case with Dr. García. He has low likelihood of having PTB. Scheduled Medications cefTRIAXone 2 g Intravenous Q24H clindamycin 600 mg Intravenous Q8H heparin (porcine) 5,000 Units Subcutaneous Q8H lidocaine 1 patch Transdermal Daily [COMPLETED] lidocaine buffered 1% nicotine 1 patch Transdermal Daily pantoprazole 40 mg Intravenous BID Continuous Infusions [DISCONTINUED] sodium chloride 110 mL/hr at 08/13/13 0922 PRN Medications acetaminophen, acetaminophen, diphenhydrAMINE, fentaNYL, fentaNYL, ipratropium-albuterol, L ORazepam, ondansetron, ondansetron, polyethylene glycol, traMADol, zolpidem OBJECTIVE Vital Signs: BP 132/58 | Pulse 57 | Temp 98.3 F (36.8 C) (Oral) | Resp 16 | Ht 1.803 m (5' 11") | Wt 94.5 kg (208 lb 5.4 oz) | BMI 29.07 kg/m2 | SpO2 96% Intake/Output Summary (Last 24 hours) at 08/13/13 1713 Last data filed at 08/13/13 1118 Gross per 24 hour Intake 1139 ml Output 1125 ml Net 14 ml Physical Exam Constitutional: He is oriented to person, place, and time. He appears well-developed and we ll-nourished. No distress. HENT: Head: Normocephalic and atraumatic. Nose: Nose normal. Mouth/Throat: Oropharynx is clear and moist. No oropharyngeal exudate. Eyes: Conjunctivae normal and EOM are normal. Pupils are equal, round, and reactive to ligh t. No scleral icterus. Neck: Normal range of motion. Neck supple. No JVD present. No tracheal deviation present. Cardiovascular: Normal rate, regular rhythm, normal heart sounds and intact distal pulses. Exam reveals no gallop and no friction rub. No murmur heard. Pulmonary/Chest: Effort normal. No stridor. No respiratory distress. He has no wheezes. He has no rales. He exhibits no tenderness. Harsh breath sound Abdominal: Soft. Bowel sounds are normal. He exhibits no distension and no mass. There is n o tenderness. There is no rebound and no guarding. Musculoskeletal: Normal range of motion. He exhibits no edema and no tenderness. Lymphadenopathy: He has no cervical adenopathy. Neurological: He is alert and oriented to person, place, and time. He has normal reflexes. Skin: Skin is warm. He is not diaphoretic. No erythema. No pallor. DATA CBC: Lab Results Component Value Date WBC 6.6 08/13/2013 RBC 4.96 08/13/2013 HGB 14.6 08/13/2013 HCT 42.0 08/13/2013 MCV 84.6 08/13/2013 MCH 29.5 08/13/2013 MCHC 34.8 08/13/2013 RDW 37.6 08/13/2013 PLT 234 08/13/2013 MPV 8.1 08/13/2013 DIFFTYPE AUTOMATED 08/13/2013 CMP: Lab Results Component Value Date NA 138 08/12/2013 K 3.8 08/12/2013 CL 106 08/12/2013 CO2 28 08/12/2013 ANIONGAP 8 08/12/2013 GLUF 92 08/12/2013 BUN 14 08/12/2013 CREATININE 0.89 08/12/2013 BCR 16 08/12/2013 CA 9.0 08/12/2013 PROT 6.3 08/12/2013 ALB 4.0 08/12/2013 GLOB 2.3 08/12/2013 BILITOT 1.7* 08/12/2013 ALP 68 08/12/2013 AST 20 08/12/2013 ALT 24 08/12/2013 EGFR >60 08/12/2013 PT/INR: Lab Results Component Value Date INR 1.0 08/13/2013 PROBLEM LIST Principal Problem: *Cavitary lesion of lung Active Problems: Cough GERD (gastroesophageal reflux disease) Back pain Anxiety state, unspecified ASSESSMENT & PLAN Platelet function test is abnormal. Bronchoscopy will be scheduled on 08-15-13. At 4 pm. F/U result of sputum for AFB and Gold TB quantiferon test,CRISTIANE profile and IgE. Disposition: Code Status: Full Code HERMILO ROBERTS MD 08/13/2013 Luna Hill MD - 08/13/2013 1:01 PM PDT Progress Notes by Luna Chi MD at 08/13/13 1301 Author: Luna Chi MD Service: (none) Author Type: Physician Filed: 08/13/13 8607 Date of Service: 08/13/13 1301 Status: Signed Foot Caster: Luna Chi MD (Physician) Related Notes: Original Note by Luna Chi MD (Physician) filed at 08/13/13 1304 [facility] Service: Hospitalist Progress Note Hospital Day: LOS: 1 day SUBJECTIVE Patient Summary: From [facility] The patient is a 28 y.o. male with significant past medical history of PUD, GERD who prese nts with Cough, SOB, nausea The patient is a 28-year-old male with a significant past medical history of peptic ulcer d isease and GERD who was transferred from [facility] due to cough, shortness of b reath, and nausea. The patient refers in the last month a weight loss of around 10 pounds. T shalini have been accompanied in the past week with a sudden cough, initially dry, then subsequ ently productive, with greenish sputum and some tinged with blood in the sputum and some christo rtness of breath at maximal activity. The patient denies any fever but positive chills. Lauro es being out of the country, denies any pets at home, no alcohol intake, but does refer zak re acid reflux to the point that he needs to sleep at 35 degrees and the reports episod es of aspiration in the middle of the night. The patient did have an EGD last summer where loco guerrero was diagnosed with severe acid reflux and peptic ulcer disease for which he is taking PPI therapy. Tonight, he started developing besides the cough and shortness of breath, nausea and headac he, reason why he went to the hospital at [facility] for further assessment and treatment. In [facility], a CT of the chest showed an infiltrate surrounding a c avitary lesion in the left posterior lung, reason why the patient was transferred here at [facility] for further assessment and treatment. Here at [facility], the patient has been hemodynamically stable and will be admitted under the spitalist service. Events Overnight: Patient complains of back pain. Pain is not controlled on taking Ul tram. Patient is allergic to morphine had rash and shortness of breath with morphine. He als o states that he is very anxious Scheduled Medications cefTRIAXone 2 g Intravenous Q24H clindamycin 600 mg Intravenous Q8H heparin (porcine) 5,000 Units Subcutaneous Q8H lidocaine 1 patch Transdermal Daily [COMPLETED] lidocaine buffered 1% nicotine 1 patch Transdermal Daily pantoprazole 40 mg Intravenous BID Continuous Infusions [DISCONTINUED] sodium chloride 110 mL/hr at 08/13/13 0922 PRN Medications acetaminophen, acetaminophen, diphenhydrAMINE, fentaNYL, fentaNYL, ipratropium-albuterol, L ORazepam, ondansetron, ondansetron, polyethylene glycol, traMADol, zolpidem OBJECTIVE Vital Signs: BP 101/51 | Pulse 53 | Temp 97.7 F (36.5 C) (Oral) | Resp 16 | Ht 1.803 m (5' 11") | Wt 94.5 kg (208 lb 5.4 oz) | BMI 29.07 kg/m2 | SpO2 98% Patient Vitals for the past 24 hrs: BP Temp Temp src Pulse Resp SpO2 Weight 08/13/13 1118 101/51 mmHg 97.7 F (36.5 C) Oral 53 16 - - 08/13/13 0824 98/56 mmHg 97.6 F (36.4 C) Oral 54 16 98 % - 08/13/13 0427 128/59 mmHg 97.6 F (36.4 C) Oral 55 18 97 % 94.5 kg (208 lb 5.4 oz) 08/12/13 1925 132/61 mmHg 98.2 F (36.8 C) Oral 65 18 98 % - 08/12/13 1607 102/52 mmHg 98.3 F (36.8 C) Oral 59 16 98 % - Intake/Output Summary (Last 24 hours) at 08/13/13 1301 Last data filed at 08/13/13 1118 Gross per 24 hour Intake 1189 ml Output 2375 ml Net -1186 ml Physical Exam: Constitutional: Alert and oriented to person, place, and time. HEENT: Neck supple, no JVD, non icteric sclera. Cardiovascular: Normal rate, regular rhythm, normal heart sounds with S1 and S2, . Exam re veals no gallop and no friction rub. No murmur heard. No S3, No S4 Pulmonary/Chest: Effort normal and breath sounds normal. No stridor. No respiratory distres s. no wheezes. no rales. exhibits no tenderness. Abdominal: Soft. Bowel sounds are normal. exhibits no distension and no mass. There is no t enderness. There is no rebound and no guarding. Extremeties/Musculoskeletal: Normal range of motion.. exhibits no edema. Tenderness presen t over the lower thoracic spine Neurological: Alert and oriented to person, place, and time. Skin: Skin is warm and dry. Psychiatric: Patient is very anxious DATA Lab 08/13/13 0429 WBC 6.6 RBC 4.96 HGB 14.6 HCT 42.0 MCV 84.6 MCH 29.5 MCHC 34.8 RDW 37.6 PLT 234 MPV 8.1 DIFFTYPE AUTOMATED Lab 08/12/13 0526 NA 138 K 3.8 CL 106 CO2 28 BUN 14 CREATININE 0.89 CALCIUM -- PROT 6.3 BILITOT 1.7* ALKPHOS -- ALT 24 AST 20 GLUF 92 Lab 08/12/13 0526 PHOS 2.7 Lab 08/12/13 0526 MG 2.3 . PROBLEM LIST Principal Problem: *Cavitary lesion of lung Active Problems: Cough GERD (gastroesophageal reflux disease) Back pain Anxiety state, unspecified ASSESSMENT & PLAN 1. Cavitary lung lesion. Discussed with Dr. García and Dr. Roberts. The patient scheduled for b ronchoscopy possibly on . Continue clindamycin and ceftriaxone. Does not appear to b e TB. 2. Cough has improved. 3. Back pain. Pain is not relieved with Ultram; however, the patient had what sounds like a n anaphylactic reaction to morphine so will start him on Lidoderm patch and continue fentany l p.r.n. 4. Anxiety. Continue IV Ativan. 5. GERD. Will continue proton-pump inhibitor. 6. Tobacco abuse. Continue nicotine patch. 7. DVT prophylaxis. Continue heparin. The plan has been discussed in detail with the patient. All questions were answered. Disposition: Pending inpatient course Code Status: Full Code Luna Chi MD 08/13/2013 1:01 PM This entry has been created using [employer]kin Speech Recognition software and [employer]. The entry has been reviewed and there may still exist sound alike word errors. onversion Trans action, Provider Unknown - 08/13/2013 11:16 AM PDT Case Management by Haseeb Jang MS, INFORMATION TECHNOLOGY MANAGER at 08/13/13 2555 Author: Haseeb Jang MS, INFORMATION TECHNOLOGY MANAGER Service: (none) Author Type: Welding Specialist Filed: 08/13/13 1118 Date of Service: 08/13/13 1116 Status: Signed Foot Caster: Haseeb Jang MS, INFORMATION TECHNOLOGY MANAGER (Welding Specialist) 08/13/13 1054 Discharge Planning Evaluation Admitting Diagnosis Cavity Lesion of Lung Readmission No Living Arrangements Spouse/significant other Support Systems Spouse/significant other House type Apartment Independent with ADL's Yes Independent with Mobility Yes Home Care Services No Caregiver after Discharge No Mental Status Oriented Prior functional status CM met with pt, spoke over phone due to airborne prescautions. pt i s independent, is employed at [employer] in [facility] [employer]. Pt has three children and care is be ing provided to them while spouse is rooming in with pt. Power of Alemite Operator No Anticipated Discharge Plan Post Acute Care Needs None at this time Plan communicated to patient/family Yes Resources Financial concerns No Transportation issues No Patient/Family concerns No Prescription Plan Yes Anticipated Disposition Facility Type Other (Comment) (Return to home) CM met with pt to discuss plan of care post discharge. Pt is a 28 y.o. male living at home with spouse. Patient's PCP is: GINA VERDUGO Patient's insurance:[employer] Medical Coverage concerns: none indicated Medication coverage/concerns: none Community resources utilized / needed: none used, pt is independent Assistance in transportation: private Identification of any specific education / training: none Barriers to Discharge / Alternative housing needed: none Anticipated DCP: Return to home . Haseeb Jang onver rick Albright, Provider Unknown - 08/12/2013 4:12 AM PDT Progress Notes by Mali Gorman RPH at 08/12/13411 Author: Mali Gorman RPH Service: (none) Author Type: Pharmacist Filed: 08/12/13411 Date of Service: 08/12/13411 Status: Signed Foot Caster: Mali Gorman RPH (Pharmacist) Clinical Pharmacy Note: Renal Monitoring Aaron Balderas 28 y.o. male Height: 180.3 cm Weight: 91.4 kg Serum Creatinine: 0.8 mg/dL (from transferring faciliyt). Estimated creatinine clearance - Cockcroft-Gault CrCl: greater than 100 mL/min. Pharmacy dosing for renal function per Dr. Barone. Currently, there are no medications needing to be adjusted. Pharmacy will continue to monit or for changes in medication orders and in renal function and adjust accordingly per P & T c ommittee. Mali Gorman, PharmD 08/12/2013 4:11 AM docume nted in this encounter H&P Notes Reg Saul MD - 08/12/2013 2:55 AM PDTFormatting of this note might be diffe rent from the original. H&P by Reg Saul MD at 08/12/13 0255 Author: Reg Saul MD Service: (none) Author Type: Physician Filed: 08/12/13 0439 Date of Service: 08/12/13 0255 Status: Signed Foot Caster: Reg Saul MD (Physician) Related Notes: Original Note by Reg Saul MD (Physician) filed at 08/12/13 0306 [facility] Service: Hospitalist Admission History & Physical Date of Admission: 08/12/2013 Requesting Physician: Dr Garcia, Emergency Department Reason for Admission: Cavitary lung lesion History Obtained From: patient CHIEF COMPLAINT: Cough, SOB, nausea HISTORY OF PRESENT ILLNESS The patient is a 28 y.o. male with significant past medical history of PUD, GERD who prese nts with Cough, SOB, nausea The patient is a 28-year-old male with a significant past medical history of peptic ulcer d isease and GERD who was transferred from [facility] due to cough, shortness of b reath, and nausea. The patient refers in the last month a weight loss of around 10 pounds. T hese have been accompanied in the past week with a sudden cough, initially dry, then subsequ ently productive, with greenish sputum and some tinged with blood in the sputum and some christo rtness of breath at maximal activity. The patient denies any fever but positive chills. [place] the [place], denies any pets at home, no alcohol intake, but does refer zak re acid reflux to the point that he needs to sleep at 35 degrees and the reports episod es of aspiration in the middle of the night. The patient did have an EGD last summer where loco guerrero was diagnosed with severe acid reflux and peptic ulcer disease for which he is taking PPI therapy. Tonight, he started developing besides the cough and shortness of breath, nausea and headac he, reason why he went to the hospital at [facility] for further assessment and treatment. In [facility], a CT of the chest showed an infiltrate surrounding a c avitary lesion in the left posterior lung, reason why the patient was transferred here at [facility] for further assessment and treatment. Here at [facility], the patient has been hemodynamically stable and will be admitted under the spitalist service. REVIEW OF SYSTEMS Review of Systems Constitutional: Positive for chills, fatigue and unexpected weight change. Negative for fev er and diaphoresis. HENT: Negative for neck pain and neck stiffness. Respiratory: Positive for cough and shortness of breath. Negative for apnea, choking and wh eezing. Cardiovascular: Negative for chest pain, palpitations and leg swelling. Gastrointestinal: Positive for nausea. Negative for vomiting, abdominal pain, diarrhea and abdominal distention. Genitourinary: Negative for dysuria and difficulty urinating. Musculoskeletal: Negative for arthralgias. Skin: Negative for color change. Neurological: Negative for dizziness and headaches. Psychiatric/Behavioral: Negative for confusion and agitation. Past Medical History Diagnosis Date Kidney stones Past Surgical History Procedure Date Cholecystectomy Unlisted procedure arthroscopy left knee Immunizations: Influenza: Pneumoccocal: Allergies Allergen Reactions Morphine Other (See Comments) Reaction to medication is not known (Not in a hospital admission) History reviewed. No pertinent family history. History Social History Marital Status: Spouse Name: N/A Number of Children: N/A Years of Education: N/A Occupational History Not on file. Social History Main Topics Smoking status: Never Smoker Smokeless tobacco: Never Used Alcohol Use: No Drug Use: No Sexually Active: Yes -- Female partner(s) Other Topics Concern Not on file Social History Narrative No narrative on file PHYSICAL EXAM Vital Signs: BP 111/57 | Pulse 74 | Temp 97.8 F (36.6 C) (Oral) | Resp 16 | Ht 1.803 m (5' 11") | Wt 91.4 kg (201 lb 8 oz) | BMI 28.12 kg/m2 | SpO2 100% Physical Exam Constitutional: He is oriented to person, place, and time. He appears well-developed. HENT: Head: Normocephalic and atraumatic. Nose: Nose normal. Eyes: EOM are normal. Pupils are equal, round, and reactive to light. Neck: Neck supple. No JVD present. Cardiovascular: Normal rate, regular rhythm and normal heart sounds. Exam reveals no wadsworth p and no friction rub. No murmur heard. Pulmonary/Chest: Effort normal. No respiratory distress. He has no wheezes. He has no rhonc hi. He has rales in the left lower field. He exhibits no tenderness. Abdominal: Soft. He exhibits no distension and no mass. There is tenderness in the right up per quadrant and epigastric area. There is no rebound and no guarding. Musculoskeletal: He exhibits no edema. Neurological: He is alert and oriented to person, place, and time. DATA CBC: No results found for this basename: WBC, RBC, HGB, HCT, MCV, MCH, MCHC, RDW, PLT, MPV, DIFF TYPE Labs and imaging from [facility] show CBC with WBC 11.3, hemoglobin 15 .2, hematocrit 44.1, platelet count 231. BMP with sodium 138, potassium 3.8, chloride 105, g lucose 105, creatinine 0.80, with GFR of 114, calcium 9.1, with normal LFT. UA within normal limits. CT of the chest shows an infiltrate surrounding a cavitary lesion in the left posterior raj g. No adenopathy seen in the vinh, mediastinum, or axillae. Abnormal appearance of the esoph alexandra. No further imaging or tests found in the patient's paperwork. PROBLEM LIST Principal Problem: *Cavitary lesion of lung Active Problems: Cough SOB (shortness of breath) GERD (gastroesophageal reflux disease) Nausea alone ASSESSMENT & PLAN IMPRESSION The patient is a 28-year-old male with a significant past medical history of peptic ulcer d isease, GERD, who comes to the ED as a transfer from [facility] due to cough, sh ortness of breath, CT of the chest with contrast done at [facility] showing an i nfiltrate surrounding a cavitary lesion in the left posterior lung base and abnormal appeara nce of the esophagus. Currently, hemodynamically stable. ASSESSMENT 1. Cough, shortness of breath, and abnormal CT scan of the chest with a cavitary lesion in the left posterior lung base. Will rule out tuberculosis, actinomycosis, fungal pneumonia. S aying so, history is more consistent with anaerobic lung abscess from aspiration. 2. Nausea. 3. Esophageal dilatation on CT scan with patient history of recent EGD and was told that he does have severe acid reflux and peptic ulcer disease. Records not available at this point. PLAN 1. Will admit the patient to the medical floor. 2. ID consult called. I discussed the case with Dr. García, who will see the patient in the morning. 3. Airborne isolation. 4. Acid fast bacillus sputum samples x3, and if we are not able to get them, will probably need bronchoscopy. 5. Routine cultures including sputum cultures, blood cultures x2, UA, urine cultures, acid fast bacillus cultures. 6. Serology for coccidioidomycosis, histoplasma, blastomyces, and cryptococcal antigen. 7. Will check HIV. 8. PPI high-dose therapy. 9. Elevate head of bed more than 30 degrees. 10. MRSA screen. 11. Will start IV ceftriaxone and clindamycin. 12. Antibiotic titration, pending culture results. 13. Oxygen p.r.n. to keep saturation more than 90%. 14. Will try to get records from recent EGD. 15. DVT/GI prophylaxis. 16. Code status. FULL CODE. Discussed with the patient. Disposition: Inpatient / Full code - discussed with patient Code Status: No Order Primary Care Physician: GINA Saul MD 08/12/2013 documented i n this encounter Procedure Notes Hermilo Roberts MD - 08/15/2013 4:52 PM PDT Procedures by Hermilo Roberts MD at 08/15/13 7642 Author: Hermilo Roberts MD Service: (none) Author Type: Physician Filed: 08/15/13 1926 Date of Service: 08/15/131651 Status: Signed Foot Caster: Hermilo Roberts MD (Physician) [facility] Service: Pulmonology Patient Name: Aaron Balderas Bronchoscopy Procedure Note Date of Operation: 08/15/2013 Pre-op Diagnosis:cavitary lung disease Post-op Diagnosis:LLL cavitary lung disease Surgeon: Operation: Flexible fiberoptic bronchoscopy Indications and History: The risks, benefits, complications, treatment options and expected outcomes were discusse d with the patient. The possibilities of reaction to medication, pulmonary aspiration, perf oration of a viscus, bleeding, failure to diagnose a condition and creating a complication r equiring transfusion or operation were discussed with the patient who freely signed the cons ent. Description of Procedure: A Time Out was held and the above information confirmed. After the induction, scope was inserted via the ET tube. Careful inspection of the tacheal lumen was accomplished. The scope was sequentially passed into the left main and then left u pper and lower bronchi and segmental bronchi. All segment and sub segments appear normal E xcept LLL areas with increase mucus secretion. The scope was then withdrawn and advanced into the right main bronchus and then into the RU L, RML, and RLL bronchi and segmental bronchi.All segment and subsegment appear normal. Lava ge was done over the posterior segment of the LLL. Biopsy was performed over the LLL under C-arm guidance. Brushing was performed over the LLL subsegment. Findings :Trachea: Normal mucosa Negrita: Normal mucosa Right main bronchus: Normal mucosa Right upper lobe bronchus: Normal mucosa Right middle lobe bronchus: Normal mucosa Right lower lobe bronchus: Normal mucosa Left main bronchus: Normal mucosa Left upper lobe bronchus: Normal mucosa Lingula:Normal mucosa Left lower lobe bronchus: Edematous mucosa Attestation: Procedure performed under anesthesia. Estimated Blood Loss: Less Than 50 ml stopped by cold saline and epinephrine and coccaine 120 mg. Complications: none The Patient was taken to the Endoscopy Recovery area in satisfactory condition. Hermilo Roberts MD 08/15/2013 4:52 PM documented in this en counter Consult Notes Hermilo Roberts MD - 08/12/2013 10:34 PM PDT Consult* by Hermilo Roberts MD at 08/12/13 7295 Author: Hermilo Roberts MD Service: (none) Author Type: Physician Filed: 08/13/13 8959 Date of Service: 08/12/134 Status: Signed Foot Caster: Hermilo Roberts MD (Physician) Related Notes: Original Note by Hermilo Roberts MD (Physician) filed at 08/12/13 9701 [facility] Service: Pulmonology Initial Consult Note Date of Admission: 08/12/2013 Reason for Consultation: cavitaing LLL pulmonary nodulHospitalist History Obtained From: patient, spouse, chart review CHIEF COMPLAINT: Chest pain HISTORY OF PRESENT ILLNESS The patient is a 28 y.o. male with significant past medical history of A 28-year-old male, former smoker, presently chewing tobacco, with history of GERD with hiatal hernia. An EGD w [facility] was performed on November 05, 2012, showed distal esophageal ulceration with gastritis and duodenitis with hiatal hernia on omeprazole once daily. 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 He quit working there 2 months ago. 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 For the past week, the patient has had cough with greenish expecto ration, which is presently dry. He also complained of shortness of breath for the past week on exertion as working in his job. He denies any nasal drainage or sneezing. He claimed to h ave left posterior lower hemithorax pain on coughing for the past 2 days. He took ibuprofen for headache prior to coming to the hospital with no relief. He received fentanyl patch whil e at [facility] and was transferred here for further treatment after CT scan of chest showed a cavitating left lower lobe pulmonary nodule. The patient is presently on IV fentanyl. He denies any TB exposure. He denies any rashes. The patient is presently on Roce phin, clindamycin, statin by the hospitalist and continued by Dr[facility]. Other workup that was done on this hospitalization included HIV testing, which was negative , rapid influenza A and B titer which was negative, and CT scan of the chest performed at [facility] showing a cavitating nodule over the posterior left lower lobe area. REVIEW OF SYSTEMS Review of Systems Constitutional: Positive for activity change and fatigue. Negative for fever, chills, diaph oresis, appetite change and unexpected weight change. Eyes: Negative. Respiratory: Positive for cough and shortness of breath. Negative for apnea, choking, chest tightness, wheezing and stridor. Cardiovascular: Positive for chest pain. Negative for palpitations and leg swelling. Gastrointestinal: Positive for abdominal pain. Negative for nausea, diarrhea, constipation, blood in stool, abdominal distention, anal bleeding and rectal pain. Genitourinary: Positive for frequency. Negative for dysuria, urgency, hematuria, flank pain , decreased urine volume, discharge, penile swelling, scrotal swelling, enuresis, difficulty urinating, genital sores, penile pain and testicular pain. Musculoskeletal: Positive for arthralgias. Negative for myalgias, back pain, joint swelling and gait problem. Skin: Negative. Negative for color change, pallor, rash and wound. Neurological: Negative. Hematological: Negative. Past Medical History Diagnosis Date Kidney stones Past Surgical History Procedure Date Cholecystectomy Unlisted procedure arthroscopy left knee Allergies Allergen Reactions Morphine Other (See Comments) Reaction to medication is not known Prescriptions prior to admission Medication Sig Dispense Refill omeprazole (PRILOSEC) 20 MG capsule Take 20 mg by mouth every morning before breakfast. Scheduled Medications [START ON 08/13/2013] cefTRIAXone 2 g Intravenous Q24H clindamycin 600 mg Intravenous Q8H heparin (porcine) 5,000 Units Subcutaneous Q8H [COMPLETED] LORazepam 1 mg Intravenous Once nicotine 1 patch Transdermal Daily pantoprazole 40 mg Intravenous BID [DISCONTINUED] cefTRIAXone 1 g Intravenous Q24H Continuous Infusions sodium chloride 110 mL/hr at 08/12/13 1334 PRN Medications acetaminophen, acetaminophen, diphenhydrAMINE, fentaNYL, fentaNYL, ipratropium-albuterol, L ORazepam, ondansetron, ondansetron, polyethylene glycol, zolpidem History reviewed. No pertinent family history. History Social History Marital Status: Spouse Name: N/A Number of Children: N/A Years of Education: N/A Occupational History Not on file. Social History Main Topics Smoking status: Never Smoker Smokeless tobacco: Current User Alcohol Use: No Drug Use: No Sexually Active: Yes -- Female partner(s) Other Topics Concern Not on file Social History Narrative No narrative on file The patient used to smoke half a pack a day for 2 years from 15 years old to 17 years old. Then he started chewing tobacco. He resumed chewing tobacco 2 months ago and had quit prior to this hospitalization. 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 PHYSICAL EXAM Vital Signs: BP 132/61 | Pulse 65 | Temp 98.2 F (36.8 C) (Oral) | Resp 18 | Ht 1.803 m (5' 11") | Wt 94.5 kg (208 lb 5.4 oz) | BMI 29.07 kg/m2 | SpO2 98% Intake/Output Summary (Last 24 hours) at 08/12/13 2237 Last data filed at 08/12/13 1757 Gross per 24 hour Intake 2439 ml Output 1775 ml Net 664 ml Physical Exam Constitutional: He is oriented to person, place, and time. He appears well-developed and we ll-nourished. No distress. HENT: Head: Normocephalic and atraumatic. Nose: Nose normal. Mouth/Throat: Oropharynx is clear and moist. No oropharyngeal exudate. Eyes: Conjunctivae normal are normal. Pupils are equal, round, and reactive to light. No sc leral icterus. Neck: Normal range of motion. Neck supple. No JVD present. No tracheal deviation present. N o thyromegaly present. Cardiovascular: Normal rate, regular rhythm, normal heart sounds and intact distal pulses. Exam reveals no gallop and no friction rub. No murmur heard. Pulmonary/Chest: Effort normal and breath sounds normal. No stridor. No respiratory distres s. He has no wheezes. He has no rales. He exhibits no tenderness. Abdominal: Soft. Bowel sounds are normal. He exhibits no distension and no mass. There is t enderness. There is no rebound and no guarding. Tender epigastric area Musculoskeletal: Normal range of motion. He exhibits no edema and no tenderness. Lymphadenopathy: He has no cervical adenopathy. Neurological: He is alert and oriented to person, place, and time. He has normal reflexes. Skin: Skin is warm. He is not diaphoretic. No erythema. No pallor. DATA CBC: No results found for this basename: WBC, RBC, HGB, HCT, MCV, MCH, MCHC, RDW, PLT, MPV, DIFF TYPE CMP: Lab Results Component Value Date NA 138 08/12/2013 K 3.8 08/12/2013 CL 106 08/12/2013 CO2 28 08/12/2013 ANIONGAP 8 08/12/2013 GLUF 92 08/12/2013 BUN 14 08/12/2013 CREATININE 0.89 08/12/2013 BCR 16 08/12/2013 CA 9.0 08/12/2013 PROT 6.3 08/12/2013 ALB 4.0 08/12/2013 GLOB 2.3 08/12/2013 BILITOT 1.7* 08/12/2013 ALP 68 08/12/2013 AST 20 08/12/2013 ALT 24 08/12/2013 EGFR >60 08/12/2013 PT/INR: No results found for this basename: PROTIME, INR PROBLEM LIST Principal Problem: *Cavitary lesion of lung Active Problems: Cough SOB (shortness of breath) GERD (gastroesophageal reflux disease) Nausea alone ASSESSMENT & PLAN ASSESSMENT AND PLAN Pulmonary nodule which is cavitating over the posterior left lower lobe area, could be an a spiration, rule out fungal infection in a patient with history of exposure to black mold simnoe hansen working in the oil [employer] in [place] for 1-1/2 years. The patient had been feeling w eak prior to this hospitalization. He had been active at work at [employer] in [facility] and also had been exercising. Aspergillus infection, nocardia infection, other atypical in fection will need to be ruled out. I doubt if the patient has TB. He does not have any expos ure to TB. IgE, QuantiFERON TB Gold, CBC, PT/INR, CRISTIANE profile, ANCA and LUCIEN level will be or dered including platelet function screen and fungal serology. For sputum collection, he had 1 collected sputum cup which will be sent for AFB. Another cup will be sent in the morning w ith continuous aerosol mask treatment, heated aerosol treatment, tonight. Serology for cocci dioides, histoplasma, blastomyces, and cryptococcal antigen all have been sent. We are going to get serology for aspergillus as well. Continue to treat GERD. Hiatal hernia is noted on the CT scan of the chest. Once at least 2 sputum are collected with Gold TB QuantiFERON, I w ill discuss his case with the ID nurse and Dr. García if I could proceed with bronchoscopy s hort of 1 sputum for AFB detection. Code Status: Full Code Primary Care Physician: GINA VERDUGO Thank you for allowing me to participate in the care of this patient. HERMILO ROBERTS MD 08/12/2013 uresh, Elvira Paredes MD - 08/12/2013 8:32 AM PDT Consult* by Elvira García MD at 08/12/13 0832 Author: Elvira García MD Service: (none) Author Type: Physician Filed: 08/12/13 1014 Date of Service: 08/12/13 0832 Status: Addendum Foot Caster: Elvira García MD (Physician) Related Notes: Original Note by Elvira García MD (Physician) filed at 08/12/13 1013 [facility] Service: Infectious Disease Initial Consult Note Date of Admission: 08/12/2013 Reason for Consultation: Cavitary lesion left lung Requesting Physician: Dr. Barone, Hospitalist History Obtained From: patient, chart review CHIEF COMPLAINT: Productive cough HISTORY OF PRESENT ILLNESS The patient is a 28 y.o. male with no significant past medical history admitted with cough and presence of cavitary lesion on CT scan. Patient first presented to [facility] on 08/11 with complaints of cough that was productive of greenish sputum. There is some history of loss of weight. A CT scan done shows presence of a cavitary mass about 3 cm in the left lung base. Presence of dilated esophagus. No significant adenopathy noted but possible thymus tissue-2 cm soft tissue den sity in the anterior mediastinum. At that time he had a marginal white count of 11.2, ESR w as only 14, creatinine normal, CMP normal. Patient does have a history of GERD with the need to lie down at at least 35 at night. No history of exposure to sick contacts. No travel outside of [place]. Smoking -patient has smoked for about 2 years past quit and then again smoked for about 4 m onths. Not a heavy smoker. REVIEW OF SYSTEMS Review of Systems GEN: Patient has not had any ongoing high-grade fevers or chills. Symptoms have started mo stly in the last week to 10 days. He has however felt poor energy and fatigue for the last few weeks. There has been loss of appetite and a loss of weight although unable to quantita te. HEENT: No redness,pain in eyes. No blurred vision. No tinnitus or ear pain.No sore throat o r difficulty swallowing NECK: no stiffness. CHEST: ++ cough or difficulty breathing productive cough-the symptoms appear to be just a w asa'[place] to 2 weeks old-. No chest pain or palpitations. ABDOMEN:No pain abdomen + nausea, no vomiting or diarrhea. : no dysuria, no hematuria, frequency. PERIPHERIES: no swelling or open wounds. SKIN: no areas of redness, rash or skin breakdown JOINTS: no swelling . No pain on movement . NEURO: no significant headaches, focal weaknesses. PSYCH: No agitation, confusion, insomnia Past Medical History Diagnosis Date Kidney stones Past Surgical History Procedure Date Cholecystectomy Unlisted procedure arthroscopy left knee Allergies Allergen Reactions Morphine Other (See Comments) Reaction to medication is not known Prescriptions prior to admission Medication Sig Dispense Refill omeprazole (PRILOSEC) 20 MG capsule Take 20 mg by mouth every morning before breakfast. Scheduled Medications cefTRIAXone 1 g Intravenous Q24H clindamycin 600 mg Intravenous Q8H heparin (porcine) 5,000 Units Subcutaneous Q8H [COMPLETED] LORazepam 1 mg Intravenous Once pantoprazole 40 mg Intravenous BID Continuous Infusions sodium chloride 110 mL/hr at 08/12/13 0430 PRN Medications acetaminophen, acetaminophen, diphenhydrAMINE, fentaNYL, fentaNYL, ipratropium-albuterol, o ndansetron, ondansetron, polyethylene glycol, zolpidem History reviewed. No pertinent family history. History Social History Marital Status: Spouse Name: N/A Number of Children: N/A Years of Education: N/A Occupational History Not on file. Social History Main Topics Smoking status: Never Smoker Smokeless tobacco: Never Used Alcohol Use: No Drug Use: No Sexually Active: Yes -- Female partner(s) Other Topics Concern Not on file Social History Narrative No narrative on file PHYSICAL EXAM Vital Signs: BP 122/70 | Pulse 66 | Temp 98 F (36.7 C) (Oral) | Resp 16 | Ht 1.803 m (5' 11") | Wt 9 1.4 kg (201 lb 8 oz) | BMI 28.12 kg/m2 | SpO2 99% Temp: [97.7 F (36.5 C)-98.5 F (36.9 C)] 98.5 F (36.9 C) (08/12 838) BP: (111-157)/(56-70) 115/68 mmHg (08/12 838) Heart Rate: [66-74] 68 (08/12 838) Resp: [16-18] 18 (08/12 838) SpO2: [98 %-100 %] 98 % (08/12 838) Height: [180.3 cm (5' 11")] 180.3 cm (5' 11") (08/12 6) Weight: [91.4 kg (201 lb 8 oz)] 91.4 kg (201 lb 8 oz) (08/12 6) BMI (Calculated): [28.2] 28.2 (08/12 6) Physical Exam GENERAL: vitals reviewed. Non toxic , afebrile . Appears comfortable and not in any distres s HEENT: conjunctivae normal. No icterus. External ears appear normal. Throat- no thrush or e rythema. NECK: supple . No significant cervical lymphadenopathy LUNGS: normal vesicular sounds . Few crackles can be heard especially in the left base. N o significant rhonchi. No chest wall tenderness. HEART : Normal heart sounds . No significant murmur or rub ABDOMEN: soft, no mass or tenderness . PERIPHERIES: No edema, varicosities or ulcers SKIN: no rash. No areas of cellulitis JOINTS: no swelling or limitation of movement NEURO: no obvious focal deficits . Alert , conscious and oriented PSYCH: mood and affect normal HEME ; No significant bleeding or Clots on exam IV SITE: clean without any obvious purulence DATA CBC: No results found for this basename: WBC, RBC, HGB, HCT, MCV, MCH, MCHC, RDW, PLT, MPV, DIFF TYPE WBC: No results found for this basename: WBC, NEUTABSMAN, NEUTROABS, NEUTROMAN, NEUTROPHILPCT, ATYLMABS, LYMPHOABS, LYMPHOMAN, LYMPHSABS, LYMPHOPCT, MONOABSMAN, MONOABS, MONOMAN, MONOPCT, EOSINOABS, EOSINOMAN, EOSABS, EOSPCT, BASOABSMAN, BASOSABS, BASOSMAN, BASOPCT, PLTEST, BAND SMAN, BANDSPCT, NRBC, METAABS, METAPCT, MYELOABS, MYELOPCT, PROLYMPHPCT, PROLYMPHABS, PROMYE LOABS, PROMYELOPCT, BLASTSABS, BLASTSPCT, ATYLMPCT, ATYLYMABS, OTHCELLABS, OTHCELLPCT, RBCMO RPH, COMDIFF CMP: Lab Results Component Value Date NA 138 08/12/2013 K 3.8 08/12/2013 CL 106 08/12/2013 CO2 28 08/12/2013 ANIONGAP 8 08/12/2013 GLUF 92 08/12/2013 BUN 14 08/12/2013 CREATININE 0.89 08/12/2013 BCR 16 08/12/2013 CA 9.0 08/12/2013 PROT 6.3 08/12/2013 ALB 4.0 08/12/2013 GLOB 2.3 08/12/2013 BILITOT 1.7* 08/12/2013 ALP 68 08/12/2013 AST 20 08/12/2013 ALT 24 08/12/2013 EGFR >60 08/12/2013 U/A: Lab Results Component Value Date CLARITYU CLEAR 08/12/2013 LEUKOCYTESUR NEGATIVE 08/12/2013 NITRITE NEGATIVE 08/12/2013 UROBILINOGEN 1.0 08/12/2013 PHUR 6.5 08/12/2013 BLOODU NEGATIVE 08/12/2013 KETONES TRACE* 08/12/2013 BILIRUBINUR NEGATIVE 08/12/2013 GLUCOSEU NEGATIVE 08/12/2013 PROBLEM LIST Principal Problem: *Cavitary lesion of lung Active Problems: Cough SOB (shortness of breath) GERD (gastroesophageal reflux disease) Nausea alone ASSESSMENT & PLAN Cavitary lesion of lung This appears to be more of a mass that is cavitating and is concerning for tumor with secon tona cavitation. Possibility of secondary bacterial infection Continue clindamycin and ceftriaxone I suggest pulmonary opinion with regard to bronchoscopy/biopsy. Concerning for malignancy Possibility of fungal infection or TB very low-both based on presentation and type of lesio n on CT scan. Code Status: Full Code Primary Care Physician: GINA VERDUGO Thank you for allowing me to participate in the care of this patient. I will continue to follow with you. Elvira García MD 08/12/2013 documente d in this encounter ED Notes Conversion Transaction, Provider Unknown - 08/12/2013 12:40 AM PDTFormatting of this note m ight be different from the original. ED Notes by Jenni Sanz RN at 08/12/1339 Author: Jenni Sanz RN Service: (none) Author Type: Registered Nurse Filed: 08/12/1339 Date of Service: 08/12/1339 Status: Signed Foot Caster: Jenni Sanz RN (Registered Nurse) Pt transfer from [place]. Jenni Sanz RN 08/12/1339 hitaIva middleton DO - 08/12/2013 12:26 AM PDTFormatting of this note might be different from the o riginal. ED Provider Notes by Iva Garcia DO at 08/12/13 002 Author: Iva Garcia DO Service: (none) Author Type: Physician Filed: 08/13/13 0258 Date of Service: 08/12/1325 Status: Signed Foot Caster: Iva Garcia DO (Physician) Additional Documentation Procedures [facility] Department of Emergency Medicine 0023 History of Present Illness Patient Identification Aaron Balderas is a 28 y.o. male. Patient information was obtained from patient. History/Exam limitations: none. Patient presented to the Emergency Department by: Car Chief Complaint Chief Complaint Patient presents with Mass The patient complains of cough, chest pain shortness of breath. Onset of symptoms was 3-4 d ays ago, with a worsening course since that time. The symptoms are described to be of moder ate severity. The patient also complains of patient has been having intermittent chills. Na usea. Denies any vomiting. Denies recent travel outside the [place]. No other famil y members have been sick. Denies any sputum production.The chest pain he is having is descr ibed as burning over the entire front of his chest. . Past Medical History Diagnosis Date Kidney stones Past Surgical History Procedure Date Cholecystectomy Unlisted procedure arthroscopy left knee Prior to Admission medications Not on File Allergies Allergen Reactions Morphine Other (See Comments) Reaction to medication is not known History Social History Marital Status: Spouse Name: N/A Number of Children: N/A Years of Education: N/A Occupational History Not on file. Social History Main Topics Smoking status: Never Smoker Smokeless tobacco: Current User Alcohol Use: No Drug Use: No Sexually Active: Yes -- Female partner(s) Other Topics Concern Not on file Social History Narrative No narrative on file History reviewed. No pertinent family history. Review of Systems Constitutional: Positive for chills. States Negative for: fever, fatigue, sweats or w eight loss Eyes: Negative for: decreased vision or irritated eyes Nose: Negative for: nosebleed Throat: Negative for: mouth sores Cardiovascular/Respiratory: Positive for shortness of breath, chest pain and cough. Gastrointestinal: Negative for: abdominal pain, vomiting, diarrhea, black or bloody stools Genitourinary: Negative for: dysuria, hematuria, urinary problems Musculoskeletal: Negative for: myalgias and arthralgias Skin: Negative for: laceration or lesion Neuro and psych: Negative for: fainting, head injury, seizure, trouble walking Endocrine/Heme/Lymph: Negative for: swollen lymph nodes, easy bruising Physical Exam BP 157/59 | Pulse 70 | Temp 97.7 F (36.5 C) | Resp 16 | Ht 1.803 m (5' 11") | Wt 91.4 k g (201 lb 8 oz) | BMI 28.12 kg/m2 | SpO2 98% Patient has mild hypertension vital signs are otherwise normal Pulse Oximetry interpretation: Normal GEN: Alert, anxious ENT: The TMS are neg. Bilaterally. There is no pharygeal injection, the mucous membranes are pink and moist. There is no conjunctival injection. There is no scleral icterus. There i s no nasal discharge or epistaxis. NECK: Supple, no tenderness on palpation, no cervical lymphadenopathy. No JVD CHEST: Breath sounds are equal bilaterally. There is a localized rhonchi in left base. HRR R. No murmurs. No tenderness to palpation over the chest wall. ABD: Soft, BS present and normal. There is no tenderness to palpation. There is no reboun d, guarding, or rigidity. No bruits. No palpable masses. EXTREM: No c/c/e. No joint swelling BACK: No tenderness to palpation. NEURO: Alert, oriented. CN2-12 intact. No motor or sensory deficitis, no drift, no cerebell ar signs. SKIN: Warm and dry, no rashes Medical Decision Making and Emergency Department Course ED Department Course 12:23 AM Pt transferred here from [facility] with cavitation mass in lung base. Additional studies required. Will review previous images and old medical record. CT of the chest was not transmitted from [facility]. I have requested again that they send us the films. 1:[address] chest from [facility]. 1:46 AM After calling transferring hospital they are now transmitting the imaging of CT cat here. Currently there are over a thousand processing images. I plan to admit the pt here for further observation and treatment. The differential diagnosis at this point in time includes tuberculosis, although the patien t has not had any of the other symptoms such as weight loss night sweats or hemoptysis. It also includes anaerobic pneumonia, and tumor. He does require admission for further workup, and IV antibiotics. 2:13 AM Discussed pt's case with hospitalist (Dr. Barone), who takes reports and accepts t he pt onto his service. Records Reviewed Nursing notes. Previous radiology studies. Labs from [facility]: CBC: WBC 11.3 (H) HGB 15.2 HCT 44.1 PLT 231 Urea Nitrogen 15 Creatinine 0.80 Na 138 K 3.8 Cl 105 CO2 26 Lac Acid 6.8 Laboratory Evaluation Results None Radiology and EKG Evaluation Imaging Results None ED Diagnoses Final diagnoses Cavitary lesion of lung SOB (shortness of breath) GERD (gastroesophageal reflux disease) Disposition: ED Disposition Admit/Observation Bed request special needs: Other (see comments) Comment: cavitary lung lesion, suspect TB Diagnosis?: cavitary lung lesion Follow-up Information None Discharge Medications: New Prescriptions No new medications Iva Garcia DO 08/13/13 0258 onversion Transacti on, Provider Unknown - 08/11/2013 10:28 PM PDTFormatting of this note might be different fro m the original. ED Notes by Sharlene Machado RN at 08/11/132227 Author: Sharlene Machado RN Service: (none) Author Type: Registered Nurse Filed: 08/11/132229 Date of Service: 08/11/132227 Status: Signed Foot Caster: Sharlene Machado RN (Registered Nurse) Presented to [facility] with abdominal pain, CT shows "cavitating mass" in L lung base, dilated esophagus. Sharlene Machado RN 08/11/132229 docume nted in this encounter Miscellaneous Notes Plan of Care - Elvira García MD - 08/14/2013 10:00 AM PDT Plan of Care by Elvira García MD at 08/14/13 1000 Author: Elvira García MD Service: (none) Author Type: Physician Filed: 08/14/13 1005 Date of Service: 08/14/13 1000 Status: Signed Foot Caster: Elvira García MD (Physician) Bronchoscopy awaited Patient remains afebrile with normal white counts Empiric ceftriaxone/clindamycin to continue until culture reports available. lan of C are - Elvira García MD - 08/13/2013 10:14 AM PDTFormatting of this note might be differ ent from the original. Plan of Care by Elvira García MD at 08/13/13 1014 Author: Elvira García MD Service: (none) Author Type: Physician Filed: 08/13/13 1037 Date of Service: 08/13/13 1014 Status: Addendum Foot Caster: Elvira García MD (Physician) Related Notes: Original Note by Elvira García MD (Physician) filed at 08/13/13 1015 Patient has cavitating mass. Cough is nonproductive Clinical suspicion for TB extremely low. Is more important to get bronchoscopy completed for further evaluation at this point. I doubt that we will have any useful information from a sputum AFB as 1st of all this is on ly saliva and secondly strong suspicion for cavitating tumor. Recommend bronchoscopy as early as possible Addendum: Discussed with the microfilm mounter Gosia Stoner We will DC sputum for AFB/culture. DC airborne precautions documente d in this encounter Plan of Treatment Not on filedocumented as of this encounter Procedures + +--------+ + + + | Procedure Name | Priori | Date/Time | Associated Diagnosis | Comments | | | ty | | | | + +--------+ + + + | EXTERNAL LAB: CBC | Routin | 08/16/2013 | | Results for this | | | e | 4:58 AM | | procedure are in the | | | | PDT | | results section. | + +--------+ + + + | BASIC METABOLIC | Routin | 08/16/2013 | | Results for this | | PANEL | e | 4:58 AM | | procedure are in the | | | | PDT | | results section. | + +--------+ + + + | XR CHEST 1 VIEW | Routin | 08/15/2013 | | Results for this | | | e | 5:10 PM | | procedure are in the | | | | PDT | | results section. | + +--------+ + + + | FL C ARM < 1 HOUR | Routin | 08/15/2013 | | Results for this | | | e | 5:08 PM | | procedure are in the | | | | PDT | | results section. | + +--------+ + + + | LEGIONELLA FA SMEAR | Routin | 08/15/2013 | | Results for this | | | e | 4:50 PM | | procedure are in the | | | | PDT | | results section. | + +--------+ + + + | CULTURE, AFB, AND | Routin | 08/15/2013 | | Results for this | | SMEAR | e | 4:50 PM | | procedure are in the | | | | PDT | | results section. | + +--------+ + + + | CULTURE, AFB, AND | Routin | 08/15/2013 | | Results for this | | SMEAR | e | 4:50 PM | | procedure are in the | | | | PDT | | results section. | + +--------+ + + + | HISTORICAL | Routin | 08/15/2013 | | Results for this | | MICROBIOLOGY RESULT | e | 4:50 PM | | procedure are in the | | | | PDT | | results section. | + +--------+ + + + | CULTURE, TISSUE, | Routin | 08/15/2013 | | Results for this | | SMEAR, WITH | e | 4:50 PM | | procedure are in the | | ANAEROBES | | PDT | | results section. | + +--------+ + + + | SIMÓN PREP | Routin | 08/15/2013 | | Results for this | | | e | 4:50 PM | | procedure are in the | | | | PDT | | results section. | + +--------+ + + + | SIMÓN PREP | Routin | 08/15/2013 | | Results for this | | | e | 4:50 PM | | procedure are in the | | | | PDT | | results section. | + +--------+ + + + | CULTURE, FUNGUS | Routin | 08/15/2013 | | Results for this | | | e | 4:50 PM | | procedure are in the | | | | PDT | | results section. | + +--------+ + + + | CULTURE, FUNGUS | Routin | 08/15/2013 | | Results for this | | | e | 4:50 PM | | procedure are in the | | | | PDT | | results section. | + +--------+ + + + | BOWEL CULTURE, | Routin | 08/15/2013 | | Results for this | | QUANTITATIVE, | e | 4:50 PM | | procedure are in the | | AEROBIC | | PDT | | results section. | + +--------+ + + + | EXTERNAL LAB: CBC | Routin | 08/15/2013 | | Results for this | | | e | 5:02 AM | | procedure are in the | | | | PDT | | results section. | + +--------+ + + + | PLATELET FUNCTION | Routin | 08/15/2013 | | Results for this | | TEST | e | 5:02 AM | | procedure are in the | | | | PDT | | results section. | + +--------+ + + + | BASIC METABOLIC | Routin | 08/15/2013 | | Results for this | | PANEL | e | 5:02 AM | | procedure are in the | | | | PDT | | results section. | + +--------+ + + + | TISSUE REQUEST FOR | Routin | 08/15/2013 | | Results for this | | PATHOLOGY (NON-ORD) | e | 12:00 AM | | procedure are in the | | | | PDT | | results section. | + +--------+ + + + | MEDICAL CYTOLOGY | Routin | 08/15/2013 | | Results for this | | | e | 12:00 AM | | procedure are in the | | | | PDT | | results section. | + +--------+ + + + | MRI THORACIC SPINE W | Routin | 08/14/2013 | | Results for this | | WO CONTRAST | e | 3:22 PM | | procedure are in the | | | | PDT | | results section. | + +--------+ + + + | EXTERNAL LAB: CBC | Routin | 08/14/2013 | | Results for this | | | e | 4:36 AM | | procedure are in the | | | | PDT | | results section. | + +--------+ + + + | BASIC METABOLIC | Routin | 08/14/2013 | | Results for this | | PANEL | e | 4:36 AM | | procedure are in the | | | | PDT | | results section. | + +--------+ + + + | CULTURE, AFB, AND | Routin | 08/13/2013 | | Results for this | | SMEAR | e | 8:14 AM | | procedure are in the | | | | PDT | | results section. | + +--------+ + + + | CULTURE, FUNGUS | Routin | 08/13/2013 | | Results for this | | | e | 8:14 AM | | procedure are in the | | | | PDT | | results section. | + +--------+ + + + | GRAM STAIN, REFLEX | Timed | 08/13/2013 | | Results for this | | SPUTUM CULTURE | | 8:12 AM | | procedure are in the | | | | PDT | | results section. | + +--------+ + + + | EXTERNAL LAB: CBC | Routin | 08/13/2013 | | Results for this | | | e | 4:29 AM | | procedure are in the | | | | PDT | | results section. | + +--------+ + + + | PLATELET FUNCTION | Routin | 08/13/2013 | | Results for this | | TEST | e | 4:29 AM | | procedure are in the | | | | PDT | | results section. | + +--------+ + + + | ANTINUCLEAR AB | Routin | 08/13/2013 | | Results for this | | MULTIPLE | e | 4:29 AM | | procedure are in the | | | | PDT | | results section. | + +--------+ + + + | QUANTIFERON GOLD | Routin | 08/13/2013 | | Results for this | | | e | 4:29 AM | | procedure are in the | | | | PDT | | results section. | + +--------+ + + + | ASPERGILLUS AB, | Routin | 08/13/2013 | | Results for this | | TOTAL | e | 4:29 AM | | procedure are in the | | | | PDT | | results section. | + +--------+ + + + | PROTIME INR | Routin | 08/13/2013 | | Results for this | | | e | 4:29 AM | | procedure are in the | | | | PDT | | results section. | + +--------+ + + + | ANGIOTENSIN I | Routin | 08/13/2013 | | Results for this | | CONVERTING ENZYME | e | 4:29 AM | | procedure are in the | | | | PDT | | results section. | + +--------+ + + + | IMMUNOGLOBULIN E | Routin | 08/13/2013 | | Results for this | | | e | 4:29 AM | | procedure are in the | | | | PDT | | results section. | + +--------+ + + + | INFLUENZA A AND B | Routin | 08/12/2013 | | Results for this | | AG, IA | e | 8:41 AM | | procedure are in the | | | | PDT | | results section. | + +--------+ + + + | COCCIDIOIDES AB, | Routin | 08/12/2013 | | Results for this | | TOTAL, SERUM, ID AND | e | 5:26 AM | | procedure are in the | | CF | | PDT | | results section. | + +--------+ + + + | HIV 1 SCREEN, RAPID | Routin | 08/12/2013 | | Results for this | | | e | 5:26 AM | | procedure are in the | | | | PDT | | results section. | + +--------+ + + + | CRYPTOCOCCAL ANTIGEN | Routin | 08/12/2013 | | Results for this | | | e | 5:26 AM | | procedure are in the | | | | PDT | | results section. | + +--------+ + + + | CULTURE, BLOOD | Timed | 08/12/2013 | | Results for this | | | | 5:26 AM | | procedure are in the | | | | PDT | | results section. | + +--------+ + + + | PHOSPHORUS | Routin | 08/12/2013 | | Results for this | | | e | 5:26 AM | | procedure are in the | | | | PDT | | results section. | + +--------+ + + + | MAGNESIUM | Routin | 08/12/2013 | | Results for this | | | e | 5:26 AM | | procedure are in the | | | | PDT | | results section. | + +--------+ + + + | BILIRUBIN, DIRECT | Routin | 08/12/2013 | | Results for this | | | e | 5:26 AM | | procedure are in the | | | | PDT | | results section. | + +--------+ + + + | COMPREHENSIVE | Routin | 08/12/2013 | | Results for this | | METABOLIC PANEL | e | 5:26 AM | | procedure are in the | | | | PDT | | results section. | + +--------+ + + + | CULTURE, BLOOD, 2ND | Timed | 08/12/2013 | | Results for this | | SPECIMEN (NON-ORD) | | 5:22 AM | | procedure are in the | | | | PDT | | results section. | + +--------+ + + + | MRSA NAAT | Timed | 08/12/2013 | | Results for this | | | | 4:40 AM | | procedure are in the | | | | PDT | | results section. | + +--------+ + + + | URINALYSIS WITH | Routin | 08/12/2013 | | Results for this | | MICROSCOPIC IF | e | 4:40 AM | | procedure are in the | | INDICATED | | PDT | | results section. | + +--------+ + + + | CULTURE, URINE | Timed | 08/12/2013 | | Results for this | | | | 4:40 AM | | procedure are in the | | | | PDT | | results section. | + +--------+ + + + | CT CHEST W CONTRAST | Routin | 08/11/2013 | | Results for this | | | e | 1:54 AM | | procedure are in the | | | | PDT | | results section. | + +--------+ + + + | CT ABDOMEN PELVIS W | Routin | 08/11/2013 | | Results for this | | CONTRAST | e | 12:41 AM | | procedure are in the | | | | PDT | | results section. | + +--------+ + + + | CT HEAD WO CONTRAST | Routin | 08/11/2013 | | Results for this | | | e | 12:40 AM | | procedure are in the | | | | PDT | | results section. | + +--------+ + + + documented in this encounter Results External Lab: CBC (08/16/2013 4:58 AM PDT) + + + + + + | Component | Value | Ref Range | Performed | Pathologist | | | | | At | Signature | + + + + + + | WBC | 9.9Comment: Testing | 3.8 - 11.0 K/uL | EXTERNAL | | | | performed at [facility], [address] | | LAB | | | | [address], | | | | | | [place] [address] | | | | + + + + + + | Non- | 5.27Comment: Testing | 4.20 - 5.70 | EXTERNAL | | | Red Blood | performed at [facility], [address] | M/uL | LAB | | | Cells | [address], | | | | | Counted | [place] [address] | | | | + + + + + + | Hemoglobin | 15.3Comment: Testing | 13.2 - 17.0 | EXTERNAL | | | | performed at [facility], [address] | g/dL | LAB | | | | [address], | | | | | | [place] [address] | | | | + + + + + + | Hematocrit, | 44.4Comment: Testing | 39.0 - 50.0 % | EXTERNAL | | | POC | performed at [facility], [address] | | LAB | | | | [address], | | | | | | [place] [address] | | | | + + + + + + | MCV | 84.2Comment: Testing | 80.0 - 100.0 fl | EXTERNAL | | | | performed at [facility], [address] | | LAB | | | | [address], | | | | | | [place] [address] | | | | + + + + + + | MCH | 29.0Comment: Testing | 27.0 - 34.0 pg | EXTERNAL | | | | performed at [facility], [address] | | LAB | | | | [address], | | | | | | [place] [address] | | | | + + + + + + | MCHC | 34.5Comment: Testing | 32.0 - 35.5 | EXTERNAL | | | | performed at [facility], [address] | g/dL | LAB | | | | [address], | | | | | | [place] [address] | | | | + + + + + + | RDW-CV | 36.8 (L)Comment: Testing | 37 - 53 fl | EXTERNAL | | | | performed at [facility], [address] | | LAB | | | | [address], | | | | | | [place] [address] | | | | + + + + + + | Platelet | 272Comment: Testing | 150 - 400 K/uL | EXTERNAL | | | Count | performed at [facility], [address] | | LAB | | | Plasma | [address], | | | | | | [place], [place] [address] | | | | + + + + + + | MPV | 8.0Comment: Testing | fl | EXTERNAL | | | | performed at [facility], [address] | | LAB | | | | [address], | | | | | | [place], [place] [address] | | | | + + + + + + | Differentia | MANUALComment: Testing | | EXTERNAL | | | l Type | performed at [facility], [address] | | LAB | | | | [address], | | | | | | [place], [place] [address] | | | | + + + + + + | Segmented | 83Comment: Testing | % | EXTERNAL | | | Neutrophils | performed at [facility], [address] | | LAB | | | Manual | [address], | | | | | | [place], [place] [address] | | | | + + + + + + | Lymphocytes | 12Comment: Testing | % | EXTERNAL | | | Manual | performed at [facility], [address] | | LAB | | | | [address], | | | | | | [place] [address] | | | | + + + + + + | Monocytes | 5Comment: Testing | % | EXTERNAL | | | Manual | performed at [facility], [address] | | LAB | | | | [address], | | | | | | [place] [address] | | | | + + + + + + | Absolute | 8.2 (H)Comment: Testing | 1.9 - 7.4 K/uL | EXTERNAL | | | Neutrophils | performed at [facility], [address] | | LAB | | | | [address], | | | | | | [place] [address] | | | | + + + + + + | Absolute | 1.2Comment: Testing | 1.0 - 3.9 K/uL | EXTERNAL | | | Lymphocytes | performed at [facility], [address] | | LAB | | | | [address], | | | | | | [place] [address] | | | | + + + + + + | Absolute | 0.5Comment: Testing | 0 - 0.8 K/uL | EXTERNAL | | | Monocytes | performed at [facility], [address] | | LAB | | | | [address], | | | | | | [place] [address] | | | | + + + + + + | RBC | RBC AND PLT MORPHOLOGY | | EXTERNAL | | | Morphology | APPEAR NORMALComment: | | LAB | | | | Testing performed at | | | | | | [facility], [address] | | | | | | [place] | | | | | | [address] | | | | + + + + + + + + | Specimen | + + | Blood specimen | | (specimen) | + + + +---------+ + + | Performing | Address | City/State/Zipcode | Phone Number | | Organization | | | | + +---------+ + + | EXTERNAL LAB | | | | + +---------+ + + Basic Metabolic Panel (08/16/2013 4:58 AM PDT) + + + + + + | Component | Value | Ref Range | Performed | Pathologist | | | | | At | Signature | + + + + + + | Na | 134 (L)Comment: Testing | 135 - 143 | EXTERNAL | | | | performed at [facility], [address] | mmol/L | LAB | | | | [address], | | | | | | [place] [address] | | | | + + + + + + | K | 4.2Comment: Testing | 3.5 - 4.9 | EXTERNAL | | | | performed at [facility], [address] | mmol/L | LAB | | | | [address], | | | | | | [place] [address] | | | | + + + + + + | Cl | 102Comment: Testing | 99 - 109 mmol/L | EXTERNAL | | | | performed at [facility], [address] | | LAB | | | | [address], | | | | | | [place] [address] | | | | + + + + + + | CO2 | 27Comment: Testing | 23 - 32 mmol/L | EXTERNAL | | | | performed at [facility], [address] | | LAB | | | | [address], | | | | | | [place] [address] | | | | + + + + + + | Anion Gap | 9Comment: Testing | 5 - 20 mmol/L | EXTERNAL | | | | performed at [facility], [address] | | LAB | | | | [address], | | | | | | [place] [address] | | | | + + + + + + | Glucose, | 116 (H)Comment: Testing | 65 - 99 mg/dL | EXTERNAL | | | Fasting | performed at [facility], [address] | | LAB | | | | [address], | | | | | | [place] [address] | | | | + + + + + + | BUN | 14Comment: Testing | 8 - 25 mg/dL | EXTERNAL | | | | performed at [facility], [address] | | LAB | | | | [address], | | | | | | [place] [address] | | | | + + + + + + | Creatinine | 0.93Comment: Testing | 0.70 - 1.30 | EXTERNAL | | | | performed at [facility], [address] | mg/dL | LAB | | | | [address], | | | | | | [place] [address] | | | | + + + + + + | BUN/Creatin | 15Comment: Testing | | EXTERNAL | | | ine Ratio | performed at [facility], [address] | | LAB | | | | [address], | | | | | | [place] [address] | | | | + + + + + + | Calcium | 9.6Comment: Testing | 8.5 - 10.2 | EXTERNAL | | | | performed at [facility], [address] | mg/dL | LAB | | | | [address], | | | | | | [place] [address] | | | | + + + + + + | Estimated | >60Comment: GFR <60: | mL/min/1.73m2 | EXTERNAL | | | GFR | CHRONIC KIDNEY DISEASE, | | LAB | | | | IF FOUND OVER A 3 MONTH | | | | | | PERIOD.GFR <15: KIDNEY | | | | | | FAILURE.FOR | | | | | | AMERICANS, MULTIPLY THE | | | | | | CALCULATED GFR BY | | | | | | 1.210.Testing performed | | | | | | at [facility], [address] | | | | | | [address], | | | | | | [place] [address] | | | | + + + + + + + + | Specimen | + + | Blood specimen | | (specimen) | + + + +---------+ + + | Performing | Address | City/State/Zipcode | Phone Number | | Organization | | | | + +---------+ + + | EXTERNAL LAB | | | | + +---------+ + + XR Chest 1 Vw (08/15/2013 5:10 PM PDT) + + | Specimen | + + | | + + + + + | Impressions | Performed At | + + + | 1. No evidence of pneumothorax following bronchoscopy. | | | | | + + + + + + | Narrative | Performed At | + + + | AARON CASANOVAEY XR CHEST 1 VIEW 08/15/2013 5:10 PM HISTORY: | | | Followup after left bronchoscopic biopsy. TECHNIQUE: One view | | | chest. FINDINGS: No comparison. There is no evidence of a left | | | pneumothorax following the bronchoscopy. The heart is mildly enlarged. | | | The target of the postoperative biopsy is not evident on this limited | | | film. | | + + + + + | Procedure Note | + + | Theo, Rad Conversion - 12/07/2018 3:08 PM PDT AARON EDILBERTOEYXR CHEST 1 VIEW08/15/2013 | | 5:10 PM HISTORY:Followup after left bronchoscopic biopsy. TECHNIQUE:One view chest. | | FINDINGS:No comparison. There is no evidence of a left pneumothorax following the | | bronchoscopy. The heart is mildly enlarged. The target of the postoperative biopsy is | | not evident on this limited film. IMPRESSION: 1. No evidence of pneumothorax following | | bronchoscopy. | | | |TECHNIQUE: | |One view chest. | | | |FINDINGS: | |No comparison. There is no evidence of a left pneumothorax following the bronchoscopy. The heart is mildly enlarged. The target of the postoperative biopsy is not evident on this limi corine film. | | | |IMPRESSION: | |1. No evidence of pneumothorax following bronchoscopy. | | | | | + + FL C-Arm < 1 Hour (08/15/2013 5:08 PM PDT) + + | Specimen | + + | | + + + + + | Impressions | Performed At | + + + | 1. Procedural films, as above. | | + + + + + + | Narrative | Performed At | + + + | AARON BALDERAS XR C-ARM FLUORO UP TO 1 HOUR 08/15/2013 5:08 PM | | | HISTORY: Bronchoscopy. TECHNIQUE: Chest 3 views using C-arm | | | technique. FINDINGS: The films demonstrate a bronchoscope in the | | | left lower lung behind the cardiac shadow with a probe directed | | | inferiorly. The final films demonstrate retraction of the probe. This | | | study is not adequate to exclude a pneumothorax. | | + + + + + | Procedure Note | + + | Theo, Rad Conversion - 12/07/2018 3:08 PM PDT AARON BHAKTA C-ARM FLUORO UP TO 1 | | HOUR08/15/2013 5:08 PM HISTORY:Bronchoscopy. TECHNIQUE:Chest 3 views using C-arm | | technique. FINDINGS:The films demonstrate a bronchoscope in the left lower lung behind | | the cardiac shadow with a probe directed inferiorly. The final films demonstrate | | retraction of the probe. This study is not adequate to exclude a pneumothorax. | | IMPRESSION: 1. Procedural films, as above. | |TECHNIQUE: | |Chest 3 views using C-arm technique. | | | |FINDINGS: | |The films demonstrate a bronchoscope in the left lower lung behind the cardiac shadow with a probe directed inferiorly. The final films demonstrate retraction of the probe. This study is not adequate to exclude a pneumothorax. | | | |IMPRESSION: | |1. Procedural films, as above. | | | | | + + Bowel culture, quantitative, aerobic (08/15/2013 4:50 PM PDT) + + | Specimen | + + | | + + + + + | Narrative | Performed At | + + + | Specimen Description BRONCHIAL LAVAGE LLL SPEC | EXTERNAL LAB | | A SPECIAL REQUESTS R/O NOCARDIA GRAM | | | STAIN 1+ WBC'S SEEN | | | NO EPITHELIAL CELLS SEEN | | | NO ORGANISMS SEEN | | | CULTURE NO GROWTH REPORT | | | STATUS FINAL | | | 08/17/2013 | | + + + + +---------+ + + | Performing | Address | City/State/Zipcode | Phone Number | | Organization | | | | + +---------+ + + | EXTERNAL LAB | | | | + +---------+ + + Legionella FA Stain (08/15/2013 4:50 PM PDT) + + | Specimen | + + | | + + + + + | Narrative | Performed At | + + + | MICRO SPECIMEN SOURCE LUNG BIOPSY LLL | EXTERNAL LAB | | SPEC F Testing performed at [facility];[address] [place] [address];[place] [address] | | | LEGIONELLA FA STAIN ACCESSION | | | NO. [id number] SPECIMEN SOURCE | | | LUNG BIOPSY LLL SPEC F RESULT | | | NO LEGIONELLA PNEUMOPHILA SEEN BY | | | DIRECT FLUORESCENT ANTIBODY STAIN. | | | THE LEGIONELLA DFA TEST | | | HAS A LOW | | | SENSITIVITY OF 25-75% AND A | | | SPECIFICITY OF 95-99%. LEGIONELLA | | | CULTURE IS A SUPERIOR TEST WITH A | | | SENSITIVITY OF 80-99% AND A | | | SPECIFICITY OF 100%. | | | Testing performed at [facility], [facility] [address] [place] [address] | | | [place] [address] STATUS REPORT | | | STATUS FINAL 08/16/2013 Testing | | | performed at [facility], [address] [place] [address] | | + + + + +---------+ + + | Performing | Address | City/State/Zipcode | Phone Number | | Organization | | | | + +---------+ + + | EXTERNAL LAB | | | | + +---------+ + + HISTORICAL MICROBIOLOGY RESULT (08/15/2013 4:50 PM PDT) + + | Specimen | + + | | + + + + + | Narrative | Performed At | + + + | FLUID TYPE BRONCHIAL LAVAGE LLL | EXTERNAL LAB | | SPEC A Testing performed at [facility];[address] [facility];[place] [address] | | | COLOR COLORLESS Testing | | | performed at [facility];[address];[place] [address] APPEARANCE | | | HAZY Testing performed at | | | [facility];[address];[place] [address] NEUTROPHILS | | | 56 Testing performed at [facility];[address];[place] [address] LYMPHOCYTES | | | 12 Testing performed at [facility];[address] [facility];[place], [place] | | | [address] MONOCYTES/MACROPHAGES 2 | | | Testing performed at [facility];[address] [place] [address];[place] [address] EOSINOPHILS | | | 10 Testing performed | | | at [facility];[address] [place] [address];[place] [address] Mesothelial Cells | | | 20 Testing performed at [facility];[address] [place] [address] | | | Bl;[place] [address] CELLS COUNTED | | | 100 Testing performed at [facility];[address] [facility];[place], [place] | | | [address] | | + + + + +---------+ + + | Performing | Address | City/State/Zipcode | Phone Number | | Organization | | | | + +---------+ + + | EXTERNAL LAB | | | | + +---------+ + + Culture, AFB, and Smear (08/15/2013 4:50 PM PDT) + + | Specimen | + + | | + + + + + | Narrative | Performed At | + + + | Specimen Description LUNG BIOPSY LLL SPEC F | EXTERNAL LAB | | AFB STAIN NO ACID FAST BACILLI | | | SEEN CULTURE NO ACID FAST | | | BACILLI ISOLATED REPORT STATUS FINAL | | | 10/01/2013 | | + + + + +---------+ + + | Performing | Address | City/State/Zipcode | Phone Number | | Organization | | | | + +---------+ + + | EXTERNAL LAB | | | | + +---------+ + + Culture, AFB, and Smear (08/15/2013 4:50 PM PDT) + + | Specimen | + + | | + + + + + | Narrative | Performed At | + + + | Specimen Description BRONCHIAL LAVAGE LLL SPEC | EXTERNAL LAB | | A AFB STAIN NO ACID FAST | | | BACILLI SEEN CULTURE NO ACID | | | FAST BACILLI ISOLATED REPORT STATUS | | | FINAL | | | 10/01/2013 | | + + + + +---------+ + + | Performing | Address | City/State/Zipcode | Phone Number | | Organization | | | | + +---------+ + + | EXTERNAL LAB | | | | + +---------+ + + Culture, Tissue, Smear, with Anaerobes (08/15/2013 4:50 PM PDT) + + | Specimen | + + | | + + + + + | Narrative | Performed At | + + + | Specimen Description LUNG BIOPSY LLL SPEC F | EXTERNAL LAB | | GRAM STAIN NO CELLS OR ORGANISMS | | | SEEN CULTURE NO GROWTH | | | REPORT STATUS FINAL | | | 08/19/2013 | | + + + + +---------+ + + | Performing | Address | City/State/Zipcode | Phone Number | | Organization | | | | + +---------+ + + | EXTERNAL LAB | | | | + +---------+ + + SIMÓN Prep (08/15/2013 4:50 PM PDT) + + | Specimen | + + | | + + + + + | Narrative | Performed At | + + + | Specimen Description LUNG BIOPSY LLL SPEC F | EXTERNAL LAB | | SIMÓN PREP NO YEAST OR FUNGAL | | | ELEMENTS SEEN REPORT STATUS FINAL | | | 08/16/2013 | | + + + + +---------+ + + | Performing | Address | City/State/Zipcode | Phone Number | | Organization | | | | + +---------+ + + | EXTERNAL LAB | | | | + +---------+ + + SIMÓN Prep (08/15/2013 4:50 PM PDT) + + | Specimen | + + | | + + + + + | Narrative | Performed At | + + + | Specimen Description BRONCHIAL LAVAGE LLL SPEC | EXTERNAL LAB | | A SIMÓN PREP NO YEAST OR FUNGAL | | | ELEMENTS SEEN REPORT STATUS FINAL | | | 08/16/2013 | | + + + + +---------+ + + | Performing | Address | City/State/Zipcode | Phone Number | | Organization | | | | + +---------+ + + | EXTERNAL LAB | | | | + +---------+ + + Culture, Fungus (08/15/2013 4:50 PM PDT) + + | Specimen | + + | | + + + + + | Narrative | Performed At | + + + | Specimen Description LUNG BIOPSY LLL SPEC F | EXTERNAL LAB | | CULTURE NO FUNGUS ISOLATED | | | REPORT STATUS FINAL | | | 09/10/2013 | | + + + + +---------+ + + | Performing | Address | City/State/Zipcode | Phone Number | | Organization | | | | + +---------+ + + | EXTERNAL LAB | | | | + +---------+ + + Culture, Fungus (08/15/2013 4:50 PM PDT) + + | Specimen | + + | | + + + + + | Narrative | Performed At | + + + | Specimen Description BRONCHIAL LAVAGE LLL SPEC | EXTERNAL LAB | | A CULTURE NO FUNGUS ISOLATED | | | REPORT STATUS FINAL | | | 09/10/2013 | | + + + + +---------+ + + | Performing | Address | City/State/Zipcode | Phone Number | | Organization | | | | + +---------+ + + | EXTERNAL LAB | | | | + +---------+ + + PLATELET FUNCTION TEST (08/15/2013 5:02 AM PDT) + + + + + + | Component | Value | Ref Range | Performed | Pathologist | | | | | At | Signature | + + + + + + | Collagen/Ep | 151Comment: Testing | 60 - 175 | EXTERNAL | | | inephrine | performed at [facility], [address] | seconds | LAB | | | Platelet | [address], | | | | | Function | [place] [address] | | | | + + + + + + + + | Specimen | + + | Blood specimen | | (specimen) | + + + +---------+ + + | Performing | Address | City/State/Zipcode | Phone Number | | Organization | | | | + +---------+ + + | EXTERNAL LAB | | | | + +---------+ + + External Lab: CBC (08/15/2013 5:02 AM PDT) + + + + + + | Component | Value | Ref Range | Performed | Pathologist | | | | | At | Signature | + + + + + + | WBC | 5.9Comment: Testing | 3.8 - 11.0 K/uL | EXTERNAL | | | | performed at [facility];[address] | | LAB | | | | [address];[place] | | | | | | [address] | | | | + + + + + + | Non- | 5.39Comment: Testing | 4.20 - 5.70 | EXTERNAL | | | Red Blood | performed at [facility];[address] | M/uL | LAB | | | Cells | [address];[place] | | | | | Counted | [id number] | | | | + + + + + + | Hemoglobin | 15.4Comment: Testing | 13.2 - 17.0 | EXTERNAL | | | | performed at [facility];[address] | g/dL | LAB | | | | [address];[place] | | | | | | [address] | | | | + + + + + + | Hematocrit, | 45.8Comment: Testing | 39.0 - 50.0 % | EXTERNAL | | | POC | performed at [facility];[address] | | LAB | | | | [address];[place] | | | | | | [address] | | | | + + + + + + | MCV | 85.1Comment: Testing | 80.0 - 100.0 fl | EXTERNAL | | | | performed at [facility];[address] | | LAB | | | | [address];[place] | | | | | | [address] | | | | + + + + + + | MCH | 28.6Comment: Testing | 27.0 - 34.0 pg | EXTERNAL | | | | performed at [facility];[address] | | LAB | | | | [address];[place] | | | | | | [address] | | | | + + + + + + | MCHC | 33.5Comment: Testing | 32.0 - 35.5 | EXTERNAL | | | | performed at [facility];[address] | g/dL | LAB | | | | [address];[place] | | | | | | [address] | | | | + + + + + + | RDW-CV | 36.8 (L)Comment: Testing | 37 - 53 fl | EXTERNAL | | | | performed at [facility];[address] | | LAB | | | | [address];[place] | | | | | | [address] | | | | + + + + + + | Platelet | 217Comment: Testing | 150 - 400 K/uL | EXTERNAL | | | Count | performed at [facility];[address] | | LAB | | | Plasma | [address];[place] | | | | | | [address] | | | | + + + + + + | MPV | 7.7Comment: Testing | fl | EXTERNAL | | | | performed at [facility];[address] | | LAB | | | | [address];[place] | | | | | | [address] | | | | + + + + + + | Differentia | AUTOMATEDComment: | | EXTERNAL | | | l Type | Testing performed at | | LAB | | | | [facility];[address];[place] [address] | | | | + + + + + + | % Segmented | 49.1Comment: Testing | % | EXTERNAL | | | | performed at [facility];[address] | | LAB | | | Neutrophils | [address];[place] | | | | | | [address] | | | | + + + + + + | % | 39.6Comment: Testing | % | EXTERNAL | | | Lymphocytes | performed at [facility];[address] | | LAB | | | | [address];[place] | | | | | | [address] | | | | + + + + + + | % Monocytes | 7.5Comment: Testing | % | EXTERNAL | | | | performed at [facility];[address] | | LAB | | | | [address];[place] | | | | | | [address] | | | | + + + + + + | % | 2.8Comment: Testing | % | EXTERNAL | | | Eosinophils | performed at [facility];[address] | | LAB | | | | [address];[place] | | | | | | [address] | | | | + + + + + + | % Basophils | 1.0Comment: Testing | % | EXTERNAL | | | | performed at [facility];[address] | | LAB | | | | [address];[place] | | | | | | [address] | | | | + + + + + + | Absolute | 2.9Comment: Testing | 1.9 - 7.4 K/uL | EXTERNAL | | | Segmented | performed at [facility];[address] | | LAB | | | Neutrophils | [address];[place] | | | | | | [address] | | | | + + + + + + | Absolute | 2.3Comment: Testing | 1.0 - 3.9 K/uL | EXTERNAL | | | Lymphocytes | performed at [facility];[address] | | LAB | | | | [address];[place] | | | | | | [address] | | | | + + + + + + | Absolute | 0.4Comment: Testing | 0 - 0.8 K/uL | EXTERNAL | | | Monocytes | performed at [facility];[address] | | LAB | | | | [address];[place] | | | | | | [address] | | | | + + + + + + | Absolute | 0.2Comment: Testing | 0 - 0.5 K/uL | EXTERNAL | | | Eosinophils | performed at [facility];[address] | | LAB | | | | [address];[place] | | | | | | [address] | | | | + + + + + + | Absolute | 0.1Comment: Testing | 0 - 0.1 K/uL | EXTERNAL | | | Basophils | performed at [facility];[address] | | LAB | | | | [address];[place] | | | | | | [address] | | | | + + + + + + + + | Specimen | + + | Blood specimen | | (specimen) | + + + +---------+ + + | Performing | Address | City/State/Zipcode | Phone Number | | Organization | | | | + +---------+ + + | EXTERNAL LAB | | | | + +---------+ + + Basic Metabolic Panel (08/15/2013 5:02 AM PDT) + + + + + + | Component | Value | Ref Range | Performed | Pathologist | | | | | At | Signature | + + + + + + | Na | 139Comment: Testing | 135 - 143 | EXTERNAL | | | | performed at [facility];[address] | mmol/L | LAB | | | | [address];[place] | | | | | | [address] | | | | + + + + + + | K | 3.9Comment: Testing | 3.5 - 4.9 | EXTERNAL | | | | performed at [facility];[address] | mmol/L | LAB | | | | [address];[place] | | | | | | [address] | | | | + + + + + + | Cl | 102Comment: Testing | 99 - 109 mmol/L | EXTERNAL | | | | performed at [facility];[address] | | LAB | | | | [address];[place] | | | | | | [address] | | | | + + + + + + | CO2 | 29Comment: Testing | 23 - 32 mmol/L | EXTERNAL | | | | performed at [facility];[address] | | LAB | | | | [address];[place] | | | | | | [address] | | | | + + + + + + | Anion Gap | 12Comment: Testing | 5 - 20 mmol/L | EXTERNAL | | | | performed at [facility];[address] | | LAB | | | | [address];[place] | | | | | | [address] | | | | + + + + + + | Glucose, | 93Comment: Testing | 65 - 99 mg/dL | EXTERNAL | | | Fasting | performed at [facility] [place];[address] | | LAB | | | | [address];[place] | | | | | | [address] | | | | + + + + + + | BUN | 13Comment: Testing | 8 - 25 mg/dL | EXTERNAL | | | | performed at [facility] [place] [facility];[address] | | LAB | | | | [address];[place] | | | | | | [address] | | | | + + + + + + | Creatinine | 0.96Comment: Testing | 0.70 - 1.30 | EXTERNAL | | | | performed at [facility] [place] [facility];[address] | mg/dL | LAB | | | | [address];[place] | | | | | | [id number] | | | | + + + + + + | BUN/Creatin | 14Comment: Testing | | EXTERNAL | | | ine Ratio | performed at [facility] [place] [facility];[address] | | LAB | | | | [address];[place] | | | | | | [address] | | | | + + + + + + | Calcium | 8.6Comment: Testing | 8.5 - 10.2 | EXTERNAL | | | | performed at [facility] [place] [facility];[address] | mg/dL | LAB | | | | [address];[place] | | | | | | [address] | | | | + + + + + + | Estimated | >60Comment: GFR <60: | mL/min/1.73m2 | EXTERNAL | | | GFR | CHRONIC KIDNEY DISEASE, | | LAB | | | | IF FOUND OVER A 3 MONTH | | | | | | PERIOD.GFR <15: KIDNEY | | | | | | FAILURE.FOR | | | | | | AMERICANS, MULTIPLY THE | | | | | | CALCULATED GFR BY | | | | | | 1.210.Testing performed | | | | | | at [facility];[address] [place] [address] | | | | | | [facility];[place] [address] | | | | + + + + + + + + | Specimen | + + | Blood specimen | | (specimen) | + + + +---------+ + + | Performing | Address | City/State/Zipcode | Phone Number | | Organization | | | | + +---------+ + + | EXTERNAL LAB | | | | + +---------+ + + Medical Cytology (08/15/2013 12:00 AM PDT) + + | Specimen | + + | | + + + + + | Narrative | Performed At | + + + | CASE: [id number] PATIENT: AARON SHERRIE Cytology Report | EXTERNAL LAB | | Clinical History: CAVITARY LUNG DISEASEGross Description: A) 20 ML | | | CLEAR COLORLESS FLUID, B) 10 ML CLEAR COLORLESS FLUID WITH BRUSH | | | TIP, BRUSH REMOVED, 5 PREPARED SLIDES Lab Preparation: A) 1 | | | MONOLAYER, 1 CYTOLOGY CELL BLOCK, B) 1 MONOLAYER, 5 PREPARED SLIDES | | | Specimen: A. BRONCHIOALVEOLAR LAVAGE, LEFT LOWER LOBE B. | | | BRONCHIAL BRUSHING, LEFT LOWER LOBE CYTOLOGIC INTERPRETATION: | | | A. Lung, left lower lobe, BAL: - Benign pulmonary contents | | | - Negative for PCP and fungal organisms on GMS stain | | | - Negative for increased intracellular lipid on oil red o stain | | | - Negative FOR SIGNIFICANT inflammation - Negative for | | | neoplasia B. Lung, left lower lobe, brushings: - Benign | | | bronchial epithelial cells - No pathologic abnormality | | | identified PATHOLOGIST COMMENTS: The clinical history of a | | | cavitary lung lesion is noted. SPECIMEN ADEQUACY: Both | | | specimens are adequately cellular for interpretation. DESCRIPTION: | | | The BAL specimen consists primarily of macrophages. The brushing | | | specimen consists primarily of ciliated columnar cells. Findings to | | | explain the patient's cavitary lung lesion or clinical symptoms are | | | not identified. Tena Zheng CT(ASCP) Electronically | | | signed Aug 17, 2013 9:04:15AM Kevin Adams MD Electronically | | | signed Aug 19, 2013 11:49:19AM | | + + + + +---------+ + + | Performing | Address | City/State/Zipcode | Phone Number | | Organization | | | | + +---------+ + + | EXTERNAL LAB | | | | + +---------+ + + Tissue Request For Pathology (08/15/2013 12:00 AM PDT) + + | Specimen | + + | | + + + + + | Narrative | Performed At | + + + | CASE: [id number] PATIENT: AARON SHERRIE Surgical Pathology Report | EXTERNAL LAB | | PATHOLOGIC DIAGNOSIS: Left lower lung, biopsy: - | | | Fragments of mildly inflamed pulmonary tissue, negative for | | | granulomata or malignancy. See comment. Comment: Please | | | correlate these results with the concurrent bronchioalveolar lavage | | | cytology ([id number]). AMB:lac:C2NR CLINICAL HISTORY: | | | 08/15/2013. ?? lung disease. GROSS DESCRIPTION: The | | | specimen is received in formalin labeled "Aaron Balderas" and designated | | | "Left lower lung biopsy" consists of four white to roberts needle | | | biopsies ranging from 0.3 to 0.4 cm in maximum dimension. They are | | | stained with hematoxylin and entirely submitted and labeled A1-A4. MARKUS | | | MICROSCOPIC EXAMINATION: Histologic sections of all submitted | | | blocks are examined by light microscopy. These findings, together | | | with the gross examination, support the pathologic diagnosis. All | | | positive controls for both special/immunohistochemical stains are | | | reviewed and react appropriately. This report has been prepared | | | using a voice recognition system. The report was reviewed for | | | accuracy, however, sound-alike word errors, addition and/or deletions | | | may occur. If there is any question about this report please contact | | | the originating pathologist. Tejal Anderson MD | | | Electronically signed Aug 19, 2013 1:01:28PM | | + + + + +---------+ + + | Performing | Address | City/State/Zipcode | Phone Number | | Organization | | | | + +---------+ + + | EXTERNAL LAB | | | | + +---------+ + + MRI Thoracic Spine w wo Contrast (08/14/2013 3:22 PM PDT) + + | Specimen | + + | | + + + + + | Impressions | Performed At | + + + | 1. Normal MRI examination of the thoracic spine. | | | | | + + + + + + | Narrative | Performed At | + + + | HISTORY: Back pain. Reported cavitary lesion within the chest which | | | may be malignant in etiology rule out metastatic disease. | | | TECHNIQUE: Imaging was performed on a 1.5 Vashti MRI system. | | | Multiplanar sequences according to a standard department protocol | | | were acquired with and without contrast. Contrast: MultiHance. | | | Dose: 18 mL. COMPARISON: None. FINDINGS: Imaging in the | | | sagittal plane was performed from the lower cervical region through | | | L1-2. The vertebral bodies are normal in height. Normal alignment | | | is noted at all levels. Normal bone marrow signal intensity is seen | | | on all sequences. Prior surgical changes: None. The visualized | | | structures in the cervical region are normal. The paraspinal soft | | | tissues as visualized are grossly normal. The thoracic aorta | | | appears in caliber The anterior longitudinal ligament, posterior | | | longitudinal ligament, ligamentum flavum and intraspinous ligaments | | | are normal. The visualized portions of the thoracic cord are | | | normal in contour caliber and signal intensity without evidence of | | | mass or syrinx. T1-2: The disk is normal in height and signal | | | intensity and has a normal posterior contour. The canal and | | | neuroforamina are patent. T2-3: The disk is normal in height and | | | signal intensity and has a normal posterior contour. The canal and | | | neuroforamina are patent. T3-4: The disk is normal in height and | | | signal intensity and has a normal posterior contour. The canal and | | | neuroforamina are patent. T4-5: The disk is normal in height and | | | signal intensity and has a normal posterior contour. The canal and | | | neuroforamina are patent. T5-6: The disk is normal in height and | | | signal intensity and has a normal posterior contour. The canal and | | | neuroforamina are patent. T6-7: The disk is normal in height and | | | signal intensity and has a normal posterior contour. The canal and | | | neuroforamina are patent. T7-8: The disk is normal in height and | | | signal intensity and has a normal posterior contour. The canal and | | | neuroforamina are patent. T8-9: The disk is normal in height and | | | signal intensity and has a normal posterior contour. The canal and | | | neuroforamina are patent. T9-10: The disk is normal in height and | | | signal intensity and has a normal posterior contour. The canal and | | | neuroforamina are patent. T10-11: The disk is normal in height and | | | signal intensity and has a normal posterior contour. The canal and | | | neuroforamina are patent. T11-12: The disk is normal in height and | | | signal intensity and has a normal posterior contour. The canal and | | | neuroforamina are patent. T12-L1: The disk is normal in height and | | | signal intensity and has a normal posterior contour. The canal and | | | neuroforamina are patent. L1-2: The disk is normal in height and | | | signal intensity and has a normal posterior contour. The canal and | | | neuroforamina are patent. Following contrast administration no | | | abnormal enhancement is seen within the vertebral bodies, disk spaces, | | | epidural space, spinal cord, nerve roots or paraspinal soft tissues. | | | | | + + + + + | Procedure Note | + + | Theo, Rad Conversion - 12/07/2018 3:08 PM PDT HISTORY:Back pain. Reported cavitary | | lesion within the chest which may be malignant in etiology rule out metastatic disease. | | TECHNIQUE:Imaging was performed on a 1.5 Vashti MRI system. Multiplanar sequences | | according to a standard department protocol were acquired with and without | | contrast.Contrast: MultiHance. Dose: 18 mL. COMPARISON:None. FINDINGS:Imaging in the | | sagittal plane was performed from the lower cervical region through L1-2. The vertebral | | bodies are normal in height. Normal alignment is noted at all levels. Normal bone | | marrow signal intensity is seen on all sequences. Prior surgical changes: None. The | | visualized structures in the cervical region are normal. The paraspinal soft tissues as | | visualized are grossly normal. The thoracic aorta appears in caliber The anterior | | longitudinal ligament, posterior longitudinal ligament, ligamentum flavum and | | intraspinous ligaments are normal. The visualized portions of the thoracic cord are | | normal in contour caliber and signal intensity without evidence of mass or syrinx. T1-2: | | The disk is normal in height and signal intensity and has a normal posterior contour. | | The canal and neuroforamina are patent. T2-3: The disk is normal in height and signal | | intensity and has a normal posterior contour. The canal and neuroforamina are patent. | | T3-4: The disk is normal in height and signal intensity and has a normal posterior | | contour. The canal and neuroforamina are patent. T4-5: The disk is normal in height and | | signal intensity and has a normal posterior contour. The canal and neuroforamina are | | patent. T5-6: The disk is normal in height and signal intensity and has a normal | | posterior contour. The canal and neuroforamina are patent. T6-7: The disk is normal in | | height and signal intensity and has a normal posterior contour. The canal and | | neuroforamina are patent. T7-8: The disk is normal in height and signal intensity and | | has a normal posterior contour. The canal and neuroforamina are patent. T8-9: The disk | | is normal in height and signal intensity and has a normal posterior contour. The canal | | and neuroforamina are patent. T9-10: The disk is normal in height and signal intensity | | and has a normal posterior contour. The canal and neuroforamina are patent. T10-11: The | | disk is normal in height and signal intensity and has a normal posterior contour. The | | canal and neuroforamina are patent. T11-12: The disk is normal in height and signal | | intensity and has a normal posterior contour. The canal and neuroforamina are patent. | | T12-L1: The disk is normal in height and signal intensity and has a normal posterior | | contour. The canal and neuroforamina are patent. L1-2: The disk is normal in height and | | signal intensity and has a normal posterior contour. The canal and neuroforamina are | | patent. Following contrast administration no abnormal enhancement is seen within the | | vertebral bodies, disk spaces, epidural space, spinal cord, nerve roots or paraspinal | | soft tissues. IMPRESSION: 1. Normal MRI examination of the thoracic spine. | | | |T9-10: The disk is normal in height and signal intensity and has a normal posterior contour . The canal and neuroforamina are patent. | | | |T10-11: The disk is normal in height and signal intensity and has a normal posterior contou r. The canal and neuroforamina are patent. | | | |T11-12: The disk is normal in height and signal intensity and has a normal posterior contou r. The canal and neuroforamina are patent. | | | |T12-L1: The disk is normal in height and signal intensity and has a normal posterior contou r. The canal and neuroforamina are patent. | | | |L1-2: The disk is normal in height and signal intensity and has a normal posterior contour. The canal and neuroforamina are patent. | | | |Following contrast administration no abnormal enhancement is seen within the vertebral bodi es, disk spaces, epidural space, spinal cord, nerve roots or paraspinal soft tissues. | | | |IMPRESSION: | |1. Normal MRI examination of the thoracic spine. | | | | | + + External Lab: [facility] (08/14/2013 4:36 AM PDT) + + + + + + | Component | Value | Ref Range | Performed | Pathologist | | | | | At | Signature | + + + + + + | WBC | 6.5Comment: Testing | 3.8 - 11.0 K/uL | EXTERNAL | | | | performed at [facility], [address] | | LAB | | | | [address], | | | | | | [place] [address] | | | | + + + + + + | Non- | 5.28Comment: Testing | 4.20 - 5.70 | EXTERNAL | | | Red Blood | performed at [facility], [address] | M/uL | LAB | | | Cells | [address], | | | | | Counted | [place] [address] | | | | + + + + + + | Hemoglobin | 15.2Comment: Testing | 13.2 - 17.0 | EXTERNAL | | | | performed at [facility], [address] | g/dL | LAB | | | | [address], | | | | | | [place] [address] | | | | + + + + + + | Hematocrit, | 44.9Comment: Testing | 39.0 - 50.0 % | EXTERNAL | | | POC | performed at [facility], [address] | | LAB | | | | [address], | | | | | | [place] [address] | | | | + + + + + + | MCV | 85.1Comment: Testing | 80.0 - 100.0 fl | EXTERNAL | | | | performed at [facility], [address] | | LAB | | | | [address], | | | | | | [place] [address] | | | | + + + + + + | MCH | 28.8Comment: Testing | 27.0 - 34.0 pg | EXTERNAL | | | | performed at [facility], [address] | | LAB | | | | [address], | | | | | | [place] [address] | | | | + + + + + + | MCHC | 33.9Comment: Testing | 32.0 - 35.5 | EXTERNAL | | | | performed at [facility], [address] | g/dL | LAB | | | | [address], | | | | | | [place] [address] | | | | + + + + + + | RDW-CV | 38.1Comment: Testing | 37 - 53 fl | EXTERNAL | | | | performed at [facility], [address] | | LAB | | | | [address], | | | | | | [place] [address] | | | | + + + + + + | Platelet | 247Comment: Testing | 150 - 400 K/uL | EXTERNAL | | | Count | performed at [facility], [address] | | LAB | | | Plasma | [address], | | | | | | [place] [address] | | | | + + + + + + | MPV | 7.9Comment: Testing | fl | EXTERNAL | | | | performed at [facility], [address] | | LAB | | | | [address], | | | | | | [place] [address] | | | | + + + + + + | Differentia | AUTOMATEDComment: | | EXTERNAL | | | l Type | Testing performed at | | LAB | | | | [facility], [address] | | | | | | [place] | | | | | | [address] | | | | + + + + + + | % Segmented | 51.5Comment: Testing | % | EXTERNAL | | | | performed at [facility], [address] | | LAB | | | Neutrophils | [address], | | | | | | [place] [address] | | | | + + + + + + | % | 37.4Comment: Testing | % | EXTERNAL | | | Lymphocytes | performed at [facility], [address] | | LAB | | | | [address], | | | | | | [place] [address] | | | | + + + + + + | % Monocytes | 7.5Comment: Testing | % | EXTERNAL | | | | performed at [facility], [address] | | LAB | | | | [address], | | | | | | [place], [place] [address] | | | | + + + + + + | % | 2.5Comment: Testing | % | EXTERNAL | | | Eosinophils | performed at [facility], [address] | | LAB | | | | [address], | | | | | | [place] [address] | | | | + + + + + + | % Basophils | 1.1Comment: Testing | % | EXTERNAL | | | | performed at [facility], [address] | | LAB | | | | [address], | | | | | | [place] [address] | | | | + + + + + + | Absolute | 3.4Comment: Testing | 1.9 - 7.4 K/uL | EXTERNAL | | | Segmented | performed at [facility], [address] | | LAB | | | Neutrophils | [address], | | | | | | [place] [address] | | | | + + + + + + | Absolute | 2.4Comment: Testing | 1.0 - 3.9 K/uL | EXTERNAL | | | Lymphocytes | performed at [facility], [address] | | LAB | | | | [address], | | | | | | [place] [address] | | | | + + + + + + | Absolute | 0.5Comment: Testing | 0 - 0.8 K/uL | EXTERNAL | | | Monocytes | performed at [facility], [address] | | LAB | | | | [address], | | | | | | [place] [address] | | | | + + + + + + | Absolute | 0.2Comment: Testing | 0 - 0.5 K/uL | EXTERNAL | | | Eosinophils | performed at [facility], [address] | | LAB | | | | [address], | | | | | | [place] [address] | | | | + + + + + + | Absolute | 0.1Comment: Testing | 0 - 0.1 K/uL | EXTERNAL | | | Basophils | performed at [facility], [address] | | LAB | | | | [address], | | | | | | [place] [address] | | | | + + + + + + + + | Specimen | + + | Blood specimen | | (specimen) | + + + +---------+ + + | Performing | Address | City/State/Zipcode | Phone Number | | Organization | | | | + +---------+ + + | EXTERNAL LAB | | | | + +---------+ + + Basic Metabolic Panel (08/14/2013 4:36 AM PDT) + + + + + + | Component | Value | Ref Range | Performed | Pathologist | | | | | At | Signature | + + + + + + | Na | 139Comment: Testing | 135 - 143 | EXTERNAL | | | | performed at [facility], [address] | mmol/L | LAB | | | | [address], | | | | | | [place] [address] | | | | + + + + + + | K | 4.1Comment: Testing | 3.5 - 4.9 | EXTERNAL | | | | performed at [facility], [address] | mmol/L | LAB | | | | [address], | | | | | | [place] [address] | | | | + + + + + + | Cl | 106Comment: Testing | 99 - 109 mmol/L | EXTERNAL | | | | performed at [facility], [address] | | LAB | | | | [address], | | | | | | [place] [address] | | | | + + + + + + | CO2 | 28Comment: Testing | 23 - 32 mmol/L | EXTERNAL | | | | performed at [facility], [address] | | LAB | | | | [address], | | | | | | [place], [place] [address] | | | | + + + + + + | Anion Gap | 9Comment: Testing | 5 - 20 mmol/L | EXTERNAL | | | | performed at [facility], [address] | | LAB | | | | [address], | | | | | | [place] [address] | | | | + + + + + + | Glucose, | 93Comment: Testing | 65 - 99 mg/dL | EXTERNAL | | | Fasting | performed at [facility], [address] | | LAB | | | | [address], | | | | | | [place] [address] | | | | + + + + + + | BUN | 15Comment: Testing | 8 - 25 mg/dL | EXTERNAL | | | | performed at [facility], [address] | | LAB | | | | [address], | | | | | | [place] [address] | | | | + + + + + + | Creatinine | 1.04Comment: Testing | 0.70 - 1.30 | EXTERNAL | | | | performed at [facility], [address] | mg/dL | LAB | | | | [address], | | | | | | [place] [address] | | | | + + + + + + | BUN/Creatin | 14Comment: Testing | | EXTERNAL | | | ine Ratio | performed at [facility], [address] | | LAB | | | | [address], | | | | | | [place] [address] | | | | + + + + + + | Calcium | 9.7Comment: Testing | 8.5 - 10.2 | EXTERNAL | | | | performed at [facility], [address] | mg/dL | LAB | | | | [facility], | | | | | | [place] [address] | | | | + + + + + + | Estimated | >60Comment: GFR <60: | mL/min/1.73m2 | EXTERNAL | | | GFR | CHRONIC KIDNEY DISEASE, | | LAB | | | | IF FOUND OVER A 3 MONTH | | | | | | PERIOD.GFR <15: KIDNEY | | | | | | FAILURE.FOR | | | | | | AMERICANS, MULTIPLY THE | | | | | | CALCULATED GFR BY | | | | | | 1.210.Testing performed | | | | | | at [facility], [address] | | | | | | [address], | | | | | | [place] [address] | | | | + + + + + + + + | Specimen | + + | Blood specimen | | (specimen) | + + + +---------+ + + | Performing | Address | City/State/Zipcode | Phone Number | | Organization | | | | + +---------+ + + | EXTERNAL LAB | | | | + +---------+ + + Culture, AFB, and Smear (08/13/2013 8:14 AM PDT) + + | Specimen | + + | Body fluid sample | | (specimen) | + + + + + | Narrative | Performed At | + + + | Specimen Description SPUTUM AFB STAIN | EXTERNAL LAB | | NO ACID FAST BACILLI SEEN CULTURE | | | NO ACID FAST BACILLI | | | ISOLATED REPORT STATUS FINAL | | | 09/27/2013 | | + + + + +---------+ + + | Performing | Address | City/State/Zipcode | Phone Number | | Organization | | | | + +---------+ + + | EXTERNAL LAB | | | | + +---------+ + + Culture, Fungus (08/13/2013 8:14 AM PDT) + + | Specimen | + + | Body fluid sample | | (specimen) | + + + + + | Narrative | Performed At | + + + | Specimen Description SPUTUM CULTURE | EXTERNAL LAB | | 1+ | | | SACCHAROMYCES CEREVISIAEAbnormal | | | REPORT STATUS FINAL | | | 08/27/2013 | | + + + + +---------+ + + | Performing | Address | City/State/Zipcode | Phone Number | | Organization | | | | + +---------+ + + | EXTERNAL LAB | | | | + +---------+ + + Gram Stain, reflex Sputum Culture (08/13/2013 8:12 AM PDT) + + | Specimen | + + | Body fluid sample | | (specimen) | + + + + + | Narrative | Performed At | + + + | Specimen Description SPUTUM GRAM STAIN | EXTERNAL LAB | | GREATER THAN 10 WBCS/LPF | | | LESS THAN 10 SEC/LPF | | | 4+ GRAM NEGATIVE RODS | | | 3+ GRAM POSITIVE | | | COCCI 2+ GRAM | | | NEGATIVE COCCI CULTURE 3+ | | | NORMAL | | | UPPER RESPIRATORY GARY REPORT STATUS | | | FINAL | | | 08/15/2013 | | + + + + +---------+ + + | Performing | Address | City/State/Zipcode | Phone Number | | Organization | | | | + +---------+ + + | EXTERNAL LAB | | | | + +---------+ + + Quantiferon Gold (08/13/2013 4:29 AM PDT) + + + + + + | Component | Value | Ref Range | Performed | Pathologist | | | | | At | Signature | + + + + + + | Quantiferon | NEGATIVEComment: Testing | | EXTERNAL | | | TB Gold | performed at [facility], [address] | | LAB | | | | [address] | | | | | | [place] [address] | | | | + + + + + + | TB 1 | 0.00Comment: <0.35 M | IU/mL | EXTERNAL | | | Antigen | TUBERCULOSIS | | LAB | | | Minus NIL | UNLIKELYTHIS IS A | | | | | | QUALITATIVE TEST. THE | | | | | | IU/ML VALUE SHOULD NOT | | | | | | BE USED TOMONITOR | | | | | | DISEASE PROGRESSION OR | | | | | | RESPONSE TO THERAPY. | | | | | | DIAGNOSING OREXCLUDING | | | | | | TUBERCULOSIS DISEASE | | | | | | AND ASSESSING THE | | | | | | PROBABILITY OF | | | | | | LTBIREQUIRE A | | | | | | COMBINATION OF | | | | | | EPIDEMIOLOGICAL, | | | | | | HISTORICAL, MEDICAL | | | | | | ANDDIAGNOSTIC FINDINGS | | | | | | THAT SHOULD BE TAKEN | | | | | | INTO ACCOUNT | | | | | | WHENINTERPRETING | | | | | | QUANTIFERON-TB GOLD | | | | | | RESULTS.Testing | | | | | | performed at [facility], [address] | | | | | | [address] | | | | | | [place] [address] | | | | + + + + + + + + | Specimen | + + | | + + + +---------+ + + | Performing | Address | City/State/Zipcode | Phone Number | | Organization | | | | + +---------+ + + | EXTERNAL LAB | | | | + +---------+ + + Aspergillus Ab, Total (08/13/2013 4:29 AM PDT) + + + + + + | Component | Value | Ref Range | Performed | Pathologist | | | | | At | Signature | + + + + + + | Aspergillus | <1:8Comment: REFERENCE | | EXTERNAL | | | Ab CF, CSF | RANGE: <1:8INTERPRETIVE | | LAB | | | | INFORMATION: ASPERGILLUS | | | | | | ANTIBODY BYCOMPLEMENT | | | | | | FIXATION | | | | | | (CF)CROSS-REACTIONS WITH | | | | | | DIMORPHIC FUNGI ARE NOT | | | | | | UNUSUAL WITHINTHE GENUS | | | | | | ASPERGILLUS. A NEGATIVE | | | | | | TEST DOES NOT | | | | | | EXCLUDEINFECTION, | | | | | | ESPECIALLY IN IMMUNO- | | | | | | COMPROMISED PATIENTS. | | | | | | BESTUSE OF TEST IS WITH | | | | | | PAIRED SERA TAKEN THREE | | | | | | WEEKS APART TODETECT A | | | | | | RISE IN TITER AGAINST A | | | | | | SINGLE ANTIGEN.Testing | | | | | | performed at [facility], [address] | | | | | | [address] [facility] | | | | | | [facility] [address] | | | | + + + + + + | Aspergillus | NONE DETECTEDComment: | | EXTERNAL | | | Antibody | REFERENCE RANGE: NONE | | LAB | | | | DETECTEDINTERPRETIVE | | | | | | INFORMATION: ASPERGILLUS | | | | | | SPP. ANTIBODIES BY | | | | | | | | | | | | | | | | | | IMMUNODIFFUSIONIN | | | | | | GENERAL, IMMUNODIFFUSION | | | | | | MEASURES IGG AND A | | | | | | POSITIVERESULT MAY | | | | | | SUGGEST PAST INFECTION. | | | | | | THE TEST IS POSITIVE | | | | | | INABOUT 90 PERCENT OF | | | | | | SERA FROM PATIENTS WITH | | | | | | ASPERGILLOMAAND 50-70 | | | | | | PERCENT OF PATIENTS WITH | | | | | | | | | | | | ALLERGICBRONCHOPULMONARY | | | | | | ASPERGILLOSIS. A | | | | | | NEGATIVE TEST | | | | | | (NONEDETECTED) DOES NOT | | | | | | EXCLUDE | | | | | | ASPERGILLOSIS.Testing | | | | | | performed at [facility], [address] | | | | | | [address] [facility] | | | | | | [facility] [address] | | | | + + + + + + + + | Specimen | + + | Blood specimen | | (specimen) | + + + +---------+ + + | Performing | Address | City/State/Zipcode | Phone Number | | Organization | | | | + +---------+ + + | EXTERNAL LAB | | | | + +---------+ + + Protime INR (08/13/2013 4:29 AM PDT) + + + + + + | Component | Value | Ref Range | Performed | Pathologist | | | | | At | Signature | + + + + + + | INR | 1.0Comment: REFERENCE | | EXTERNAL | | | | RANGE:0.9 - 1.2 | | LAB | | | | NON-ANTICOAGULATED2.0 | | | | | | - 3.0 ALL OTHER | | | | | | THERAPEUTIC | | | | | | INDICATIONS2.5 - 3.5 | | | | | | MECHANICAL HEART VALVES, | | | | | | RECURRENT OR SYSTEMIC | | | | | | EMBOLISMTesting | | | | | | performed at [facility];[address] | | | | | | [facility];[place], [place] | | | | | | [address] | | | | + + + + + + + + | Specimen | + + | Blood specimen | | (specimen) | + + + +---------+ + + | Performing | Address | City/State/Zipcode | Phone Number | | Organization | | | | + +---------+ + + | EXTERNAL LAB | | | | + +---------+ + + PLATELET FUNCTION TEST (08/13/2013 4:29 AM PDT) + + + + + + | Component | Value | Ref Range | Performed | Pathologist | | | | | At | Signature | + + + + + + | Collagen/Ep | >300 (H)Comment: Testing | 60 - 175 | EXTERNAL | | | inephrine | performed at [facility], [address] | [address] | LAB | | | Platelet | [address], | | | | | Function | [place] [address] | | | | + + + + + + | Collagen/AD | 75Comment: RESULTS 50 | 50 - 112 | EXTERNAL | | | P Platelet | to 112 SECONDS INDICATES | seconds | LAB | | | Function | POSSIBLE DECREASED | | | | | | PLATELET FUNCTION DUE TO | | | | | | ASPIRIN EFFECTRESULTS | | | | | | >112 SECONDS INDICATES | | | | | | POSSIBLE ABNORMAL | | | | | | PLATELET FUNCTION, | | | | | | CONSIDER ADDITIONAL | | | | | | WORKUPOcclusion times | | | | | | may be prolonged if | | | | | | patient has a Hematocrit | | | | | | <35% and or a platelet | | | | | | count <150,000 | | | | | | uL.Testing performed at | | | | | | [facility], [address] | | | | | | [place], [place] | | | | | | [address] | | | | + + + + + + + + | Specimen | + + | Blood specimen | | (specimen) | + + + +---------+ + + | Performing | Address | City/State/Zipcode | Phone Number | | Organization | | | | + +---------+ + + | EXTERNAL LAB | | | | + +---------+ + + External Lab: [facility] (08/13/2013 4:29 AM PDT) + + + + + + | Component | Value | Ref Range | Performed | Pathologist | | | | | At | Signature | + + + + + + | WBC | 6.6Comment: Testing | 3.8 - 11.0 K/uL | EXTERNAL | | | | performed at [facility], [address] | | LAB | | | | [address], | | | | | | [place] [address] | | | | + + + + + + | Non- | 4.96Comment: Testing | 4.20 - 5.70 | EXTERNAL | | | Red Blood | performed at [facility], [address] | M/uL | LAB | | | Cells | [address], | | | | | Counted | [place] [address] | | | | + + + + + + | Hemoglobin | 14.6Comment: Testing | 13.2 - 17.0 | EXTERNAL | | | | performed at [facility], [address] | g/dL | LAB | | | | [address], | | | | | | [place] [address] | | | | + + + + + + | Hematocrit, | 42.0Comment: Testing | 39.0 - 50.0 % | EXTERNAL | | | POC | performed at [facility], [address] | | LAB | | | | [address], | | | | | | [place] [address] | | | | + + + + + + | MCV | 84.6Comment: Testing | 80.0 - 100.0 fl | EXTERNAL | | | | performed at [facility], [address] | | LAB | | | | [address], | | | | | | [place] [address] | | | | + + + + + + | MCH | 29.5Comment: Testing | 27.0 - 34.0 pg | EXTERNAL | | | | performed at [facility], [address] | | LAB | | | | [address], | | | | | | [place] [address] | | | | + + + + + + | MCHC | 34.8Comment: Testing | 32.0 - 35.5 | EXTERNAL | | | | performed at [facility], [address] | g/dL | LAB | | | | [address], | | | | | | [place] [address] | | | | + + + + + + | RDW-CV | 37.6Comment: Testing | 37 - 53 fl | EXTERNAL | | | | performed at [facility], [address] | | LAB | | | | [address], | | | | | | [place] [address] | | | | + + + + + + | Platelet | 234Comment: Testing | 150 - 400 K/uL | EXTERNAL | | | Count | performed at [facility], [address] | | LAB | | | Plasma | [address], | | | | | | [place] [address] | | | | + + + + + + | MPV | 8.1Comment: Testing | fl | EXTERNAL | | | | performed at [facility], [address] | | LAB | | | | [address], | | | | | | [place] [address] | | | | + + + + + + | Differentia | AUTOMATEDComment: | | EXTERNAL | | | l Type | Testing performed at | | LAB | | | | [facility], [address] | | | | | | [place] | | | | | | [address] | | | | + + + + + + | % Segmented | 55.0Comment: Testing | % | EXTERNAL | | | | performed at [facility], [address] | | LAB | | | Neutrophils | [address], | | | | | | [place] [address] | | | | + + + + + + | % | 33.0Comment: Testing | % | EXTERNAL | | | Lymphocytes | performed at [facility], [address] | | LAB | | | | [address], | | | | | | [place] [address] | | | | + + + + + + | % Monocytes | 8.1Comment: Testing | % | EXTERNAL | | | | performed at [facility], [address] | | LAB | | | | [address], | | | | | | [place] [address] | | | | + + + + + + | % | 2.9Comment: Testing | % | EXTERNAL | | | Eosinophils | performed at [facility], [address] | | LAB | | | | [address], | | | | | | [place] [address] | | | | + + + + + + | % Basophils | 1.0Comment: Testing | % | EXTERNAL | | | | performed at [facility], [address] | | LAB | | | | [address], | | | | | | [place] [address] | | | | + + + + + + | Absolute | 3.6Comment: Testing | 1.9 - 7.4 K/uL | EXTERNAL | | | Segmented | performed at [facility], [address] | | LAB | | | Neutrophils | [address], | | | | | | [place] [address] | | | | + + + + + + | Absolute | 2.2Comment: Testing | 1.0 - 3.9 K/uL | EXTERNAL | | | Lymphocytes | performed at [facility], [address] | | LAB | | | | [address], | | | | | | [place] [address] | | | | + + + + + + | Absolute | 0.5Comment: Testing | 0 - 0.8 K/uL | EXTERNAL | | | Monocytes | performed at [facility], [address] | | LAB | | | | [address], | | | | | | [place] [address] | | | | + + + + + + | Absolute | 0.2Comment: Testing | 0 - 0.5 K/uL | EXTERNAL | | | Eosinophils | performed at [facility], [address] | | LAB | | | | [address], | | | | | | [place] [address] | | | | + + + + + + | Absolute | 0.1Comment: Testing | 0 - 0.1 K/uL | EXTERNAL | | | Basophils | performed at [facility], [address] | | LAB | | | | [address], | | | | | | [place] [address] | | | | + + + + + + + + | Specimen | + + | Blood specimen | | (specimen) | + + + +---------+ + + | Performing | Address | City/State/Zipcode | Phone Number | | Organization | | | | + +---------+ + + | EXTERNAL LAB | | | | + +---------+ + + Angiotensin I Converting Enzyme (08/13/2013 4:29 AM PDT) + + + + + + | Component | Value | Ref Range | Performed | Pathologist | | | | | At | Signature | + + + + + + | Angiotensin | 42Comment: Testing | 4 - 60 U/L | EXTERNAL | | | -Converting | performed at [facility] | | LAB | | | Enzyme | [facility], | | | | | | [address] | | | | | | [address] | | | | + + + + + + + + | Specimen | + + | Blood specimen | | (specimen) | + + + +---------+ + + | Performing | Address | City/State/Zipcode | Phone Number | | Organization | | | | + +---------+ + + | EXTERNAL LAB | | | | + +---------+ + + Antinuclear AB Multiple (08/13/2013 4:29 AM PDT) + + + + + + | Component | Value | Ref Range | Performed | Pathologist | | | | | At | Signature | + + + + + + | CRISTIANE | NEGATIVEComment: A | | EXTERNAL | | | | MULTIPLEX SCREEN FOR 11 | | LAB | | | | AUTOANTIBODIES (DSDNA, | | | | | | SM, RIBOSOMAL | | | | | | P,CHROMATIN, FIELD MARKETING DIRECTOR, SM | | | | | | FIELD MARKETING DIRECTOR, SCL-70, CENTROMERE | | | | | | B, SSA, SSB AND JESSICA-1) | | | | | | WASPERFORMED AND NO | | | | | | AUTOANTIBODIES WERE | | | | | | DETECTED.Testing | | | | | | performed at [facility], [address] | | | | | | [facility] | | | | | | [place] [address] | | | | + + + + + + + + | Specimen | + + | Blood specimen | | (specimen) | + + + +---------+ + + | Performing | Address | City/State/Zipcode | Phone Number | | Organization | | | | + +---------+ + + | EXTERNAL LAB | | | | + +---------+ + + Immunoglobulin E (08/13/2013 4:29 AM PDT) + + + + + + | Component | Value | Ref Range | Performed | Pathologist | | | | | At | Signature | + + + + + + | Immunoglobu | <2.0Comment: Testing | 0.0 - 158.0 | EXTERNAL | | | alan IgE | performed at [facility], [address] | kU/L | LAB | | | | [address] [place] | | | | | | [place] [address] | | | | + + + + + + + + | Specimen | + + | Blood specimen | | (specimen) | + + + +---------+ + + | Performing | Address | City/State/Zipcode | Phone Number | | Organization | | | | + +---------+ + + | EXTERNAL LAB | | | | + +---------+ + + Influenza A and B Ag, [place] (08/12/2013 8:41 AM PDT) + + | Specimen | + + | Body fluid sample | | (specimen) | + + + + + | Narrative | Performed At | + + + | Specimen Description NASOPHARYNGEAL RESULT | EXTERNAL LAB | | Negative for Influenzae Type A | | | and Type B antigen by ICA REPORT STATUS | | | FINAL 08/12/2013 | | + + + + +---------+ + + | Performing | Address | City/State/Zipcode | Phone Number | | Organization | | | | + +---------+ + + | EXTERNAL LAB | | | | + +---------+ + + HIV 1 Screen, Rapid (08/12/2013 5:26 AM PDT) + + + + + + | Component | Value | Ref Range | Performed | Pathologist | | | | | At | Signature | + + + + + + | HIV 1 and 2 | NON REACTIVEComment: | | EXTERNAL | | | Ab, Rapid | Testing performed at | | LAB | | | | [facility];[address] | | | | | | [place] [address] | | | | + + + + + + + + | Specimen | + + | | + + + +---------+ + + | Performing | Address | City/State/Zipcode | Phone Number | | Organization | | | | + +---------+ + + | EXTERNAL LAB | | | | + +---------+ + + Coccidioides Ab, Total, Serum, ID and CF (08/12/2013 5:26 AM PDT) + + + + + + | Component | Value | Ref Range | Performed | Pathologist | | | | | At | Signature | + + + + + + | Coccidioide | <1:2Comment: REFERENCE | | EXTERNAL | | | s Ab by CF | RANGE: <1:2REFERENCE | | LAB | | | | RANGE: | | | | | | <1:2INTERPRETIVE | | | | | | CRITERIA: | | | | | | <1:2 | | | | | | ANTIBODY NOT DETECTED | | | | | | > OR = | | | | | | 1:2 ANTIBODY | | | | | | DETECTEDALL SERUM TITERS | | | | | | > OR = 1:2 SHOULD BE | | | | | | CONSIDEREDEVIDENCE | | | | | | INDICATIVE OF | | | | | | COCCIDIOIDOMYCOSIS,ALTHO | | | | | | UGH TITERS OF 1:2 AND | | | | | | 1:4 SHOULD BE | | | | | | CONFIRMEDBY | | | | | | IMMUNODIFFUSION TESTING. | | | | | | TITERS EXCEEDING | | | | | | 1:16USUALLY REFLECT | | | | | | DISSEMINATED DISEASE. IN | | | | | | GENERAL,HIGHER TITERS | | | | | | ARE CORRELATED WITH | | | | | | DISEASESEVERITY, AND | | | | | | CHANGES IN SERIAL TITERS | | | | | | ARE OFPROGNOSTIC VALUE. | | | | | | A NEGATIVE CF TEST DOES | | | | | | NOT,HOWEVER, RULE OUT | | | | | | THE DIAGNOSIS. ONLY 70% | | | | | | OFPATIENTS WITH CAVITARY | | | | | | DISEASE ARE POSITIVE, | | | | | | ANDONLY 30% OF PATIENTS | | | | | | WITH NODULAR DISEASE | | | | | | AREPOSITIVE.THIS TEST | | | | | | WAS DEVELOPED AND ITS | | | | | | PERFORMANCECHARACTERISTI | | | | | | CS HAVE BEEN DETERMINED | | | | | | BY [employer]. | | | | | | PERFORMANCE | | | | | | CHARACTERISTICS REFER | | | | | | TOTHE ANALYTICAL | | | | | | PERFORMANCE OF THE | | | | | | TEST.Testing performed | | | | | | at [facility], | | | | | | [address], | | | | | | [place] [address] | | | | + + + + + + | Coccidioide | NEGATIVEComment: | | EXTERNAL | | | s Ab by ID | REFERENCE RANGE: | | LAB | | | | NEGATIVEINTERPRETIVE | | | | | | CRITERIA: | | | | | | NEGATIVE: | | | | | | ANTIBODY NOT DETECTED | | | | | | | | | | | | POSITIVE: ANTIBODY | | | | | | DETECTEDTHE | | | | | | IMMUNODIFFUSION (ID) | | | | | | PROCEDURE CORRELATES | | | | | | BOTHIN SENSITIVITY AND | | | | | | CLINICAL UTILITY WITH | | | | | | THE CFTEST. THE ID TEST, | | | | | | WHICH DETECTS IGG | | | | | | DIRECTED TOTHE "F" | | | | | | ANTIGEN, BECOMES | | | | | | POSITIVE WITHIN 4 | | | | | | WEEKSAFTER INFECTION AND | | | | | | REMAINS POSITIVE | | | | | | THROUGHOUTCLINICALLY | | | | | | ACTIVE DISEASE. IT IS | | | | | | MOST USEFUL INCONFIRMING | | | | | | THE SPECIFICITY OF LOW | | | | | | CF TITERS, WHERELINE(S) | | | | | | OF IDENTITY ARE FORMED | | | | | | WITH REFERENCEANTISERA. | | | | | | POSITIVE ID REACTIONS | | | | | | ARE DIAGNOSTIC | | | | | | FORCOCCIDIOIDOMYCOSIS | | | | | | AND USUALLY INDICATE | | | | | | ACTIVE ORRECENT DISEASE | | | | | | AND REMAIN DETECTABLE | | | | | | FOR UP TO 1YEAR | | | | | | THEREAFTER.Testing | | | | | | performed at [facility] | | | | | | [facility], [address] | | | | | | [place] | | | | | | [address] | | | | + + + + + + + + | Specimen | + + | Blood specimen | | (specimen) | + + + +---------+ + + | Performing | Address | City/State/Zipcode | Phone Number | | Organization | | | | + +---------+ + + | EXTERNAL LAB | | | | + +---------+ + + Cryptococcal Antigen (08/12/2013 5:26 AM PDT) + + + + + + | Component | Value | Ref Range | Performed | Pathologist | | | | | At | Signature | + + + + + + | SPECIMEN | BLOODComment: Testing | | EXTERNAL | | | SOURCE? | performed at [facility];[address] | | LAB | | | [address];[place] | | | | | | [address] | | | | + + + + + + | CRYPTO AG | Comment: ACCESSION NO. | | EXTERNAL | | | CSF | | | LAB | | | | [id number] | | | | | | SOURCE | | | | | | BLOODRESULT | | | | | | | | | | | | | | | | | | NEGATIVETesting | | | | | | performed at [facility] | | | | | | [facility], | | | | | | [address], [facility] | | | | | | [address] | | | | + + + + + + | CRYPTOCOCCU | REPORT STATUS | | EXTERNAL | | | S AG, CSF | FINAL | | LAB | | | | 08/13/2013Comment: | | | | | | Testing performed at | | | | | | [facility] | | | | | | [place], [address], | | | | | | [facility] [address] | | | | + + + + + + + + | Specimen | + + | Cerebrospinal fluid | | sample (specimen) | + + + +---------+ + + | Performing | Address | City/State/Zipcode | Phone Number | | Organization | | | | + +---------+ + + | EXTERNAL LAB | | | | + +---------+ + + Phosphorus (08/12/2013 5:26 AM PDT) + + + + + + | Component | Value | Ref Range | Performed | Pathologist | | | | | At | Signature | + + + + + + | PHOSPHORUS | 2.7Comment: Testing | 2.3 - 4.8 mg/dL | EXTERNAL | | | | performed at [facility], [address] | | LAB | | | | [address], | | | | | | [place] [address] | | | | + + + + + + + + | Specimen | + + | Blood specimen | | (specimen) | + + + +---------+ + + | Performing | Address | City/State/Zipcode | Phone Number | | Organization | | | | + +---------+ + + | EXTERNAL LAB | | | | + +---------+ + + Magnesium (08/12/2013 5:26 AM PDT) + + + + + + | Component | Value | Ref Range | Performed | Pathologist | | | | | At | Signature | + + + + + + | Magnesium | 2.3Comment: Testing | 1.7 - 2.4 mg/dL | EXTERNAL | | | | performed at [facility], [address] | | LAB | | | | [address], | | | | | | [place] [address] | | | | + + + + + + + + | Specimen | + + | Blood specimen | | (specimen) | + + + +---------+ + + | Performing | Address | City/State/Zipcode | Phone Number | | Organization | | | | + +---------+ + + | EXTERNAL LAB | | | | + +---------+ + + Bilirubin, Direct (08/12/2013 5:26 AM PDT) + + + + + + | Component | Value | Ref Range | Performed | Pathologist | | | | | At | Signature | + + + + + + | Bilirubin | 0.3Comment: Testing | 0.0 - 0.3 mg/dL | EXTERNAL | | | Direct | performed at [facility], [address] | | LAB | | | | [address], | | | | | | [place] [address] | | | | + + + + + + + + | Specimen | + + | | + + + +---------+ + + | Performing | Address | City/State/Zipcode | Phone Number | | Organization | | | | + +---------+ + + | EXTERNAL LAB | | | | + +---------+ + + Comprehensive Metabolic Panel (08/12/2013 5:26 AM PDT) + + + + + + | Component | Value | Ref Range | Performed | Pathologist | | | | | At | Signature | + + + + + + | Na | 138Comment: Testing | 135 - 143 | EXTERNAL | | | | performed at [facility], [address] | mmol/L | LAB | | | | [address], | | | | | | [place] [address] | | | | + + + + + + | K | 3.8Comment: Testing | 3.5 - 4.9 | EXTERNAL | | | | performed at [facility], [address] | mmol/L | LAB | | | | [address], | | | | | | [place] [address] | | | | + + + + + + | Cl | 106Comment: Testing | 99 - 109 mmol/L | EXTERNAL | | | | performed at [facility], [address] | | LAB | | | | [address], | | | | | | [place] [address] | | | | + + + + + + | CO2 | 28Comment: Testing | 23 - 32 mmol/L | EXTERNAL | | | | performed at [facility], [address] | | LAB | | | | [address], | | | | | | [place] [address] | | | | + + + + + + | Anion Gap | 8Comment: Testing | 5 - 20 mmol/L | EXTERNAL | | | | performed at [facility], [address] | | LAB | | | | [address], | | | | | | [place] [address] | | | | + + + + + + | Glucose, | 92Comment: Testing | 65 - 99 mg/dL | EXTERNAL | | | Fasting | performed at [facility], [address] | | LAB | | | | [address], | | | | | | [place] [address] | | | | + + + + + + | BUN | 14Comment: Testing | 8 - 25 mg/dL | EXTERNAL | | | | performed at [facility], [address] | | LAB | | | | [address], | | | | | | [place] [address] | | | | + + + + + + | Creatinine | 0.89Comment: Testing | 0.70 - 1.30 | EXTERNAL | | | | performed at [facility], [address] | mg/dL | LAB | | | | [address], | | | | | | [place] [address] | | | | + + + + + + | BUN/Creatin | 16Comment: Testing | | EXTERNAL | | | ine Ratio | performed at [facility], [address] | | LAB | | | | [address], | | | | | | [place] [address] | | | | + + + + + + | Calcium | 9.0Comment: Testing | 8.5 - 10.2 | EXTERNAL | | | | performed at [facility], [address] | mg/dL | LAB | | | | [address], | | | | | | [place] [address] | | | | + + + + + + | Protein, | 6.3Comment: Testing | 6.3 - 8.2 g/dL | EXTERNAL | | | Total | performed at [facility], [address] | | LAB | | | | [address], | | | | | | [place] [address] | | | | + + + + + + | Albumin | 4.0Comment: Testing | 3.6 - 5.0 g/dL | EXTERNAL | | | | performed at [facility], [address] | | LAB | | | | [address], | | | | | | [place] [address] | | | | + + + + + + | Globulin | 2.3Comment: Testing | 1.3 - 4.9 g/dL | EXTERNAL | | | | performed at [facility], [address] | | LAB | | | [address], | | | | | | [place] [address] | | | | + + + + + + | A/G Ratio | 1.7Comment: Testing | 1.0 - 2.4 | EXTERNAL | | | | performed at [facility], [address] | | LAB | | | | [address], | | | | | | [place] [address] | | | | + + + + + + | Bilirubin | 1.7 (H)Comment: Testing | 0.1 - 1.5 mg/dL | EXTERNAL | | | Total | performed at [facility], [address] | | LAB | | | [address], | | | | | | [place] [address] | | | | + + + + + + | ALP, | 68Comment: Testing | 35 - 115 U/L | EXTERNAL | | | External | performed at [facility], [address] | | LAB | | | [address], | | | | | | [place] [address] | | | | + + + + + + | AST | 20Comment: Testing | 10 - 45 U/L | EXTERNAL | | | | performed at [facility], [address] | | LAB | | | | [address], | | | | | | [place] [address] | | | | + + + + + + | ALT | 24Comment: Testing | 10 - 65 U/L | EXTERNAL | | | | performed at [facility], [address] | | LAB | | | | [address], | | | | | | [place] [address] | | | | + + + + + + | Estimated | >60Comment: GFR <60: | mL/min/1.73m2 | EXTERNAL | | | GFR | CHRONIC KIDNEY DISEASE, | | LAB | | | | IF FOUND OVER A 3 MONTH | | | | | | PERIOD.GFR <15: KIDNEY | | | | | | FAILURE.FOR | | | | | | AMERICANS, MULTIPLY THE | | | | | | CALCULATED GFR BY | | | | | | 1.210.Testing performed | | | | | | at [facility], [address] | | | | | | [address], | | | | | | [place] [address] | | | | + + + + + + + + | Specimen | + + | Blood specimen | | (specimen) | + + + +---------+ + + | Performing | Address | City/State/Zipcode | Phone Number | | Organization | | | | + +---------+ + + | EXTERNAL LAB | | | | + +---------+ + + Culture, Blood (08/12/2013 5:26 AM PDT) + + | Specimen | + + | Blood specimen | | (specimen) | + + + + + | Narrative | Performed At | + + + | Specimen Description BLOOD SPECIAL | EXTERNAL LAB | | REQUESTS right ac CULTURE | | | NO GROWTH REPORT STATUS | | | FINAL | | | 08/18/2013 | | + + + + +---------+ + + | Performing | Address | City/State/Zipcode | Phone Number | | Organization | | | | + +---------+ + + | EXTERNAL LAB | | | | + +---------+ + + Culture, Blood, 2nd Specimen (08/12/2013 5:22 AM PDT) + + | Specimen | + + | Blood specimen | | (specimen) | + + + + + | Narrative | Performed At | + + + | Specimen Description BLOOD SPECIAL | EXTERNAL LAB | | REQUESTS left ac CULTURE | | | NO GROWTH REPORT STATUS | | | FINAL | | | 08/18/2013 | | + + + + +---------+ + + | Performing | Address | City/State/Zipcode | Phone Number | | Organization | | | | + +---------+ + + | EXTERNAL LAB | | | | + +---------+ + + Urinalysis with Microscopic if Indicated (08/12/2013 4:40 AM PDT) + + + + + + | Component | Value | Ref Range | Performed | Pathologist | | | | | At | Signature | + + + + + + | Color | YELLOWComment: Testing | | EXTERNAL | | | | performed at [facility], [address] | | LAB | | | | [address], | | | | | | [place] [address] | | | | + + + + + + | Clarity, | CLEARComment: Testing | | EXTERNAL | | | Urine | performed at [facility], [address] | | LAB | | | | [address], | | | | | | [place] [address] | | | | + + + + + + | Specific | 1.046 (H)Comment: | 1.002 - 1.030 | EXTERNAL | | | [place], | Testing performed at | | LAB | | | Urine | [facility], [address] | | | | | | [place] | | | | | | [address] | | | | + + + + + + | Leukocyte | NEGATIVEComment: | | EXTERNAL | | | Esterase, | Testing performed at | | LAB | | | Urine | [facility], [address] | | | | | | [place] | | | | | | [address] | | | | + + + + + + | Nitrite, | NEGATIVEComment: Testing | | EXTERNAL | | | Urine | performed at [facility], [address] | | LAB | | | | [address], | | | | | | [place] [address] | | | | + + + + + + | Urobilinoge | 1.0Comment: Testing | mg/dL | EXTERNAL | | | n, Urine | performed at [facility], [address] | | LAB | | | [address], | | | | | | [place] [address] | | | | + + + + + + | Protein, | NEGATIVEComment: Testing | mg/dL | EXTERNAL | | | Urine | performed at [facility], [address] | | LAB | | | | [address], | | | | | | [place] [address] | | | | + + + + + + | pH, Urine | 6.5Comment: Testing | 5.0 - 8.0 | EXTERNAL | | | | performed at [facility], [address] | | LAB | | | | [address], | | | | | | [place] [address] | | | | + + + + + + | Blood, | NEGATIVEComment: Testing | | EXTERNAL | | | Urine | performed at [facility], [address] | | LAB | | | | [address], | | | | | | [place] [address] | | | | + + + + + + | Ketones | TRACE (A)Comment: | mg/dL | EXTERNAL | | | | Testing performed at | | LAB | | | | [facility], [address] | | | | | | [place] | | | | | | [address] | | | | + + + + + + | Bilirubin, | NEGATIVEComment: Testing | | EXTERNAL | | | Urine | performed at [facility], [address] | | LAB | | | | [address], | | | | | | [place] [id number] | | | | + + + + + + | Glucose, | NEGATIVEComment: Testing | mg/dL | EXTERNAL | | | Urine | performed at [facility], [address] | | LAB | | | | [address], | | | | | | [place] [id number] | | | | + + + + + + + + | Specimen | + + | Urine specimen | | (specimen) | + + + +---------+ + + | Performing | Address | City/State/Zipcode | Phone Number | | Organization | | | | + +---------+ + + | EXTERNAL LAB | | | | + +---------+ + + MRSA NAAT (08/12/2013 4:40 AM PDT) + + | Specimen | + + | Urine specimen | | (specimen) | + + + + + | Narrative | Performed At | + + + | [facility]AR[facility](NOSE) | EXTERNAL LAB | | Testing performed at [facility];[address] [place] [address];[place] [address] MRSA PCR | | | NEGATIVE Testing performed at | | | [facility] [place] [facility];[address] [place] [address];[place] [address] | | + + + + +---------+ + + | Performing | Address | City/State/Zipcode | Phone Number | | Organization | | | | + +---------+ + + | EXTERNAL LAB | | | | + +---------+ + + Culture, Urine (08/12/2013 4:40 AM PDT) + + | Specimen | + + | Urine specimen | | (specimen) | + + + + + | Narrative | Performed At | + + + | Specimen Description CLEAN CATCH URINE CULTURE | EXTERNAL LAB | | NO GROWTH REPORT STATUS | | | FINAL | | | 08/13/2013 | | + + + + +---------+ + + | Performing | Address | City/State/Zipcode | Phone Number | | Organization | | | | + +---------+ + + | EXTERNAL LAB | | | | + +---------+ + + CT Chest w Contrast (08/11/2013 1:54 AM PDT) + + | Specimen | + + | | + + + + + | Narrative | Performed At | + + + | This is a non-reportable procedure without a radiologist report and | | | is used for image storage only | | + + + + + | Procedure Note | + + | Howard Venegas Conversion - 12/07/2018 3:08 PM PDT This is a non-reportable procedure | | without a radiologist report and isused for image storage only | + + CT Abdomen Pelvis w Contrast (08/11/2013 12:41 AM PDT) + + | Specimen | + + | | + + + + + | Narrative | Performed At | + + + | This is a non-reportable procedure without a radiologist report and | | | is used for image storage only | | + + + + + | Procedure Note | + + | Theo, Rad Conversion - 12/07/2018 3:08 PM PDT This is a non-reportable procedure | | without a radiologist report and isused for image storage only | + + CT Head wo Contrast (08/11/2013 12:40 AM PDT) + + | Specimen | + + | | + + + + + | Narrative | Performed At | + + + | This is a non-reportable procedure without a radiologist report and | | | is used for image storage only | | + + + + + | Procedure Note | + + | Howard Venegas - 12/07/2018 3:08 PM PDT This is a non-reportable procedure | | without a radiologist report and isused for image storage only | + + documented in this encounter Visit Diagnoses + + | Diagnosis | + + | Cavitary lesion of lung Other diseases of lung, not elsewhere classified | + + | SOB (shortness of breath) Shortness of breath | + + | GERD (gastroesophageal reflux disease) Esophageal reflux | + + | Back pain Backache, unspecified | + + | Cough | + + | Anxiety state, unspecified | + + documented in this encounter
--- OUTSIDE RECORDS SUMMARY | ~2020-02-05 | XMS | Encounter Summary ---
Demographics + + + | Address | [address] | | | [place] [address] | + + + | Home Phone | | + + + | Preferred Language | Unknown | + + + | Marital Status | | + + + | Mandaeism Affiliation | Unknown | + + + | Race | White | + + + | Ethnic Group | Not or | + + + Author + + + | Author | [facility] | | | and [place] | + + + | Organization | [facility] | | | and [...] [place] | | | | | [address] | | + + + + + | Bessie Vizcaino | ECON | [place] | | | | | [phone] | | + + + + + Care Team Providers + +------+ + | Care Cranberry Bog Supervisor Name | Role | Phone | + +------+ + | Jose Manuel Zuñiga DO | PCP | | + +------+ + Reason for Visit + +--------+ + | Reason | Onset | Comments | | | Date | | + +--------+ + | Appointment | 11/08/ | | | | 2012 | | + +--------+ + Encounter Details +--------+ + + + + | Date | Type | Department | Care Team | Description | +--------+ + + + + | 11/08/ | Telephone | [facility] | Gómez Ocampo MD | Appointment | | 2012 | | GASTROENTEROLOGY | [address], [place] | | | | | [address] | [address] [place] | | | | | [address] [place] | [address] | | | | | [address] | | | | | | [phone] | | | +--------+ + + + + Social [...] + + documented as of this encounter Miscellaneous Notes Telephone Encounter - Tanya Melgoza - 12/19/2012 2:14 PM PDTPatient is out of town until s ome time in January. He will call our office when he is ready to schedule.Electronically sig yon by Tanya Melgoza at 12/19/2012 2:14 PM PDTTelephone Encounter - Johanne Patino - 3 2:13 PM PDTLeft message for patient to schedule.Electronically signed by Johanne Patino at 0 12/12/2012 2:14 PM PDTTelephone Encounter - Derek Cool - 12/03/2012 4:46 PM PDTLeft message with patient to schedule with Dr. Lyles for the week of 12/17/12. Patient to be seen for abd pain, diarrhea and vomiting.Electronically signed by Derek Cool at 3 4:48 PM PDTTelephone Encounter - Kimberlee Humphrey RN - 12/03/2012 3:34 PM PDTSchirinau jade pt with Dr Franklin Lyles week of 12/17/12. elephone Encounter - Kimberlee Humphrey RN - 11/29/2012 3:[address] Ocampo, can Dr Lyles see.Electronically signed by Kimberlee Humphrey RN at 0 11/29/2012 3:52 PM PDTTelephone Encounter - Tanya Melgoza - 11/28/2012 3:53 PM PDTNotes karina e received and scanned and were sent back in Dr. Ocampo's Box today. elephone Encounter - Derek Cool - 11/22/2012 1:24 PM [address]TC[address] [facility] Records [facility] 6 mos of recs along with any labs and imaging. Med Recs informed me pt was seen in Mar 2012 but wasn't seen again un til October of this year so they will send all records from October. We should receive records tod ay. elephone Encounter - Thelma Oleary RN - 11/08/2012 3:15 PM PDTPlease make sure we get all the records on this patient from once we have records please send back phone note thanks!Leonel blake signed by Thelma Oleary, RN at 11/08/2012 3:16 PM PDTTelephone Encounter - Tomas Perry - 11/08/2012 2:[address] [facility] [address] they are discharging this patient for a GI bleed and they want a follow up with our doctor as soon as possible. You can call the patien t directly, and if there are any question you can call [facility] at [phone] icafay signed by Alice Perry at 11/08/2012 2:38 PM PDTdocumented in this encounter Plan of Treatment Not on filedocumented as of this encounter Visit Diagnoses Not on filedocumented in this encounter"
--- OUTSIDE RECORDS SUMMARY | ~2020-02-05 | XMS | Encounter Summary ---
Demographics + + + | Address | [address] | | | [place] [address] | + + + | Home Phone | | + + + | Preferred Language | Unknown | + + + | Marital Status | | + + + | Advent Affiliation | Unknown | + + + | Race | White | + + + | Ethnic Group | Not or | + + + Author + + + | Author | [facility] | | | and [place] | + + + | Organization | [facility] | | [...] [place] | | | | | [phone] | | + + + + + | Bessie Vizcaino | ECON | [place] | | | | | [address] | | + + + + + Care Team Providers + +------+ + | Care Soaker Soda Worker Name | Role | Phone | + +------+ + PCP | Unavailable | + +------+ + Encounter Details +--------+ + + + + | Date | Type | Department | Care Team | Description | +--------+ + + + + | 02/23/ | Hospital | [facility] | Unknown, | | | 1993 | Encounter | MED CTR XRAY [address] | MD Sarah . | | | | | [address] | | | | | | [place] [address] | (Fax) | | | | | [phone] | | | +--------+ + + + [...] + + documented as of this encounter Plan of Treatment Not on filedocumented as of this encounter Visit Diagnoses Not on filedocumented in this encounter"
--- OUTSIDE RECORDS SUMMARY | ~2020-02-05 | XMS | Encounter Summary ---
Demographics + + + | Address | [address] | | | [place] [address] | + + + | Home Phone | | + + + | Preferred Language | Unknown | + + + | Marital Status | | + + + | Yazidism Affiliation | Unknown | + + + | Race | White | + + + | Ethnic Group | Not or | + + + Author + + + | Author | [facility] | | | and [place] | + + + | Organization | [facility] | | | and [...] [place] | | | | | [address] | | + + + + + | Bessie Vizcaino | ECON | [place] | | | | | [address] | | + + + + + Care Team Providers + +------+ + | Care Stores Despatch Hand Name | Role | Phone | + +------+ + PCP | Unavailable | + +------+ + Encounter Details +--------+ + + + + | Date | Type | Department | Care Team | Description | +--------+ + + + + | 01/30/ | Hospital | [facility] | | | | 2002 | Encounter | MED CTR EMERGENCY | | | | | | CENTER [address] | | | | | | [place] | | | | | | [address] | | | | | | [phone] | | | +--------+ + + + [...]
--- OUTSIDE RECORDS SUMMARY | ~2020-02-05 | XMS | Encounter Summary ---
Demographics + + + | Address | [address] | | | [place] [address] | + + + | Home Phone | | + + + | Preferred Language | Unknown | + + + | Marital Status | | + + + | Buddhist Affiliation | Unknown | + + + | Race | White | + + + | Ethnic Group | Not or | + + + Author + + + | Author | [facility] | | | and [place] | + + + | Organization | [facility] | | | [...] [place] | | | | | [address] | | + + + + + | Bessie Vizcaino | ECON | [place] | | | | | [address] | | + + + + + Care Team Providers + +------+ + | Care Porter Marina Name | Role | Phone | + +------+ + | Jose Manuel Zuñiga DO | PCP | | + +------+ + Encounter Details +--------+ + + + + | Date | Type | Department | Care Team | Description | +--------+ + + + + | 09/09/ | Hospital | [facility] | Conversion | Pain | | 2014 | Encounter | CONVERSION [address] | Transaction, | | | | | [address] | Provider Unknown | | | [facility] | [phone] | | | | | [address] | | | | | | [phone] | | | +--------+ + + + [...] CT CHEST W CONTRAST | Routin | 09/06/2013 | | Results for this | | | e | 8:41 PM | | procedure are in the | | | | PDT | | results section. | + +--------+ + + + documented in this encounter Results CT Chest w Contrast (09/06/2013 8:41 PM PDT) + + | Specimen | [...] + | Diagnosis | + + | Pain Generalized pain | + + documented in this encounter"
--- OUTSIDE RECORDS SUMMARY | ~2020-02-05 | XMS | Encounter Summary ---
Demographics + + + | Address | [address] | | | [place] [address] | + + + | Home Phone | | + + + | Preferred Language | Unknown | + + + | Marital Status | | + + + | Scientology Affiliation | Unknown | + + + | Race | White | + + + | Ethnic Group | Not or | + + + Author + + + | Author | [facility] | | | and [place] | + + + | Organization | [facility] | | [...] [place] | | | | | [address] | | + + + + + | Bessie Vizcaino | ECON | [place] | | | | | [address] | | + + + + + Care Team Providers + +------+ + | Care Stock Control Clerk Name | Role | Phone | + +------+ + | Pop Del Valle NP | PCP | | + +------+ + Reason for Visit + + + | Reason | Comments | + + + | Chest Pain | | + + + | Shortness of Breath | | + + + Encounter Details +--------+ + + + + | Date | Type | Department | Care Team | Description | +--------+ + + + + | 07/01/ | Emergency | [facility] | Zari Hilton | Alcohol withdrawal, | | 2016 | | [facility] | MD Shaggy [address] | uncomplicated ([facility]) | | | | CENTER [address] | [facility], | (Primary Dx); | | | | [place] | [place] [address] | Alcohol abuse; | | | | [address] | [phone] | Anxiety; | | | | [phone] | | Transaminitis; | | | | | Clark Burch MD | Hypokalemia | | | | | [address] | | | | | | [place] | | | | | | [address] | | | | | | | | +--------+ + + + + Social History + +-------+ +--------+------+ | Tobacco Use | Types | Packs/Day | Years | Date | | | | | Used | | + +-------+ +--------+------+ | Never Smoker | | | | | + +-------+ +--------+------+ + +------+---+---+ | Smokeless Tobacco: | Chew | | | | Current User | | | | + +------+---+---+ + + +---------+ + | Alcohol Use | Drinks/Week | oz/Week | Comments | + + +---------+ + | Yes | | | | + + +---------+ + + + + | Sex Assigned at | Date Recorded | | | | + + + | Not on file | | + + + documented as of this encounter Last Filed Vital Signs + + + + + | Vital Sign | Reading | Time Taken | Comments | + + + + + | Blood Pressure | 138/80 | 07/02/2015 2:46 PM | | | | | PST | | + + + + + | Pulse | 84 | 07/02/2015 2:46 PM | | | | | PST | | + + + + + | Temperature | - | - | | + + + + + | Respiratory Rate | 16 | 07/02/2015 2:46 PM | | | | | PST | | + + + + + | Oxygen Saturation | 96% | 07/02/2015 2:46 PM | | | | | PST | | + + + + + | Inhaled Oxygen | - | - | | | Concentration | | | | + + + + + | Weight | 102.1 kg (225 lb) | 07/02/2015 11:56 AM | | | | | PST | | + + + + + | Height | 180.3 cm (5' 10.98") | 07/02/2015 11:56 AM | | | | | PST | | + + + + + | Body Mass Index | 31.4 | 07/02/2015 11:56 AM | | | | | PST | | + + + + + documented in this encounter Discharge Instructions Instructions Zari Hilton MD - 07/02/2015Please stay well-hydrated. Use the medi cation as prescribed as needed to manage your symptoms of anxiety. Please read the attached handout on alcohol withdrawal, worrisome signs and symptoms to alexander barrientos, and what to expect in the next few days. Please read the attached information on low potassium, and increase her dietary intake to c ontrol your potassium level. Please follow-up with your primary care provider in the next few days for reevaluation. Ot herwise, return to the emergency room as needed. AttachmentsThe following attachments cannot be sent through Care Everywhere.ALCOHOL WITHDRA WAL: WHAT TO EXPECT (ISRAELI)HYPOKALEMIA, DISCHARGE INSTRUCTIONS ([place]RAELI)documented in this encounter Medications at Time of Discharge + + + +---------+ + + | Medication | Sig | Dispensed | Refills | Start | End Date | | | | | | Date | | + + + +---------+ + + | dexlansoprazole | Take 60 mg by mouth | | 0 | | | | (DEXILANT) [address] | Daily. | | | | | | capsule | | | | | | + + + +---------+ + + | LORazepam (ATIVAN) | Take 1 tablet by | 12 | 0 | 07/02/19 | | | 1 mg tablet | mouth every 8 hours | tablet | | 16 | | | | as needed for | | | | | | | Anxiety. | | | | | + + + +---------+ + + documented as of this encounter ED Notes Zari Hilton MD - 07/02/2015 11:58 AM PSTFormatting of this note might be differe nt from the original. [facility] Emergency Department Encounter Note [address] [place] [id number] PCP:Pop Del Valle NP [phone] CHIEF COMPLAINT: Chest Pain and Shortness of Breath ED Room: ED14/ED14 ED Triage Notes Tejal Stoner RN 07/02/2015 11:56 Pt states that he has been having some chest pain for the past week, got much worse today, states he has some anxiety and shortness of breath, lightheaded. HPI Gómez Balderas is a 30 y.o. male who presents to the Emergency Department, accompanied by hims elf, with the above noted complaint(s). Patient reports that last Monday he was hanging o ut with some of his buddies and was drinking more than usual. He states that the following morning he woke up and felt some chest discomfort feeling very anxious and feeling like he c ouldn't catch a deep breath. Patient states that the symptoms have been constant for the week. He states that it is much worse today. He states that he left his job in [facility] and moved out here yesterday. He reports no prior history of anxiety disorder. He sta jessi that he has had his gallbladder taken out. He also reports having some GERD for which h e takes medicines. However, patient reports that the symptoms do not feel like prior GERD a ttacks. Patient states that he feels light headed because he can't seem to get a deep breat h. He reports he is not vomiting. He denies any cough. He does report a history of cavita ry lesion a year and half ago for which he was treated with antibiotics therapy and has not had any recurring symptoms. Patient states that he does not smoke but does chew tobacco. He states that he normally dr inks alcohol very minimally but last week did drink about 30 beers just himself. Denies any recreational drug use. Patient reports no significant family medical history of cardiac di sorders. After some consideration, patient reports that he had not been fully forthcoming. States th at while working in [place], he usually drank quite heavily on a daily basis, but then has not been drinking for past few days. He reports he has not ever experienced any chemica l addiction or withdrawal. PAST MEDICAL & SURGICAL HISTORY History reviewed. No pertinent past medical history. Past Surgical History Procedure Laterality Date Cholecystectomy CURRENT MEDICATIONS Discharge Medication List as of 07/02/2015 14:40 CONTINUE these medications which have NOT CHANGED Details dexlansoprazole (DEXILANT) [address] capsule Take 60 mg by mouth Daily.Historical Med ALLERGIES Allergies Allergen Reactions Morphine Anxiety FAMILY AND SOCIAL HISTORY No family history on file. History Social History Marital Status: Spouse Name: N/A Number of Children: N/A Years of Education: N/A Social History Main Topics Smoking status: Never Smoker Smokeless tobacco: Current User Types: Chew Alcohol Use: Yes Drug Use: No Sexual Activity: None Other Topics Concern None Social History Narrative None REVIEW OF SYSTEMS As in history of present illness. A 10 system review was otherwise negative. PHYSICAL EXAM VITAL SIGNS: (first vital signs): Pulse: 97 Resp: 22 SpO2: 98 % BP: 155/79 mmHg General Appearance: male patient, well developed, well nourished, in no obvious acute distr ess HEENT: Atraumatic, PERRL, Nares clear, Oropharynx with pink and moist mucous membranes. Neck: Neck is supple with full range of motion. No JVD noted. Chest: No reproducible pain; No tender to palpation Respiratory: Good inspiratory effort, nonlabored breathing, adequate chest excursion. Whe ezes or rales or rhonchi are not appreciated on ausculation. Cardiovascular: Regular rate and rhythm. No murmurs, gallops or rubs appreciated on exam. Abdomen: Soft, no focal tenderness. Bowel tones are present and normal. Back: Within normal limits, normal range of motion Extremities: full range of motion of all 4 extremities, nontender, atraumatic, no peripher al edema. Capillary refill less than 2 seconds throughout Skin: Warm, dry, no rashes noted, no jaundice noted Neurologic: Alert & oriented. Cranial nerves II-XII grossly intact. Speech normal, gait sta ble. No tremors noted, no asterixis. Psychiatric: Mildly anxious without overt agitation. EKG Rhythm: NSR, Rate: 94 bpm; no evidence of acute ischemia or infarct, no arrhythmia. LABS Results for orders placed or performed during the hospital encounter of 07/02/15 CBC w/ Auto Differential Result Value Ref Range WBC 8.5 4.0-11.0 K/uL RBC 5.71 (H) 4.30-5.70 M/uL Hgb 16.4 13.5-18.0 g/dL Hct 48.2 40.0-51.0 % MCV 84.4 83.0-101.0 fL MCH 28.7 28.0-35.0 pg MCHC 34.0 32.0-36.0 g/dL RDW-CV 13.4 <15.0 % Platelet Count 188 140-440 K/uL MPV 8.1 fL % Neutrophils 65.3 45.0-82.0 % % Lymphocytes 25.8 20.0-45.0 % % Monocytes 7.1 4.0-12.0 % % Eosinophils 0.4 0.0-5.0 % % Basophils 1.4 (H) 0.0-1.0 % Absolute Neutrophils 5.50 1.80-8.50 K/uL Absolute Lymphocytes 2.20 0.60-3.20 K/uL Absolute Monocytes 0.60 0.00-1.00 K/uL Absolute Eosinophils 0.00 0.00-0.40 K/uL Absolute Basophils 0.10 0.00-0.10 K/uL Comprehensive Metabolic Panel Result Value Ref Range NA 138 136-149 mmol/L K 3.2 (L) 3.5-5.1 mmol/L CL 104 98-109 mmol/L CO2 25 24-31 mmol/L ANION GAP 9 3-16 mmol/L GLUCOSE 124 (H) 70-109 mg/dL BUN 9 7-18 mg/dL Creatinine, Serum/Plasma 0.95 0.60-1.30 mg/dL eGFR if not >60 >=60 mL/min/1.73m2 CALCIUM 9.1 8.3-10.5 mg/dL ALBUMIN 4.2 3.2-5.0 g/dL BILIRUBIN TOTAL 3.1 (H) 0.1-1.5 mg/dL Total protein 6.6 6.0-7.8 g/dL AST 50 (H) 10-42 U/L ALT 68 (H) 6-45 U/L ALK PHOS 58 40-110 U/L GLOBULIN 2.4 g/dL Albumin/Globulin ratio 1.8 BUN/CREA 9.5 Troponin I Result Value Ref Range Troponin I 0.01 <0.06 ng/mL Protime INR Result Value Ref Range PROTIME 14.5 (H) 11.3-13.9 seconds INR 1.08 0.90-1.10 Urinalysis with Microscopic with Culture if Indicated Result Value Ref Range COLOR Yellow Light Yellow, Yellow, Straw CLARITY Hazy PH UA 8.0 5.0-8.0 Specific [place] 1.010 1.001-1.030 PROTEIN UA Negative Negative BLOOD UA Negative Negative GLUCOSE UA Negative Negative KETONES UA Negative Negative BILIRUBIN UA Negative Negative NITRITE UA Negative Negative LEUKOCYTES ESTERASE UA Negative Negative UROBILINOGEN UA Negative < 0.2 mg/dL, 1.0 mg/dL, 4.0 mg/dL, Normal, 1.0 E.U./dL, 0.2 E.U./ dL, 0.2 mg/dL, Negative, 1 mg/dL, <2.0 mg/dL WBC UA 2-5 (A) 0-2 /HPF RBC UA 0-2 0-2 /HPF SQUAMOUS EPITHELIAL UA 0-2 0-2 /LPF BACTERIA UA 1+ (A) Negative /HPF MUCUS UA Present (A) Negative /LPF URINE COMMENT Urine Culture Not Indicated Drugs of Abuse, Screen, Urine Result Value Ref Range Amphetamine Screen, Urine Negative Negative Barbiturates Screen, Urine Negative Negative Benzodiazepines, Urine, Screen Negative Negative Cannabinoids Screen, Urine Negative Negative Cocaine Screen, Urine Negative Negative Methadone Screen, Urine Negative Negative Opiates Screen, Urine Negative Negative Hepatitis Panel, Acute Result Value Ref Range Hepatitis A Ab IgM Non Reactive NR Hepatitis B Surface Ag Non Reactive NR Hepatitis B Core Ab IgM Non Reactive NR Hepatitis C Ab See Comments NR Hepatitis Interpretation: See Comments TSH Result Value Ref Range TSH 0.67 0.34-5.60 uIU/mL Lipase Result Value Ref Range LIPASE 30 0-60 U/L IMAGING STUIDES (X-Rays interpreted by ED Physician) Xr Chest Pa And Lateral 07/02/2015 XR CHEST PA AND LATERAL 07/02/2015 12:52 PM HISTORY: sob, chest pain. COMPARIS ON: None. Findings: Heart size is at the upper limits of normal. Aorta is normal. Mediastin um is unremarkable. Central pulmonary vasculature is normal. The bilateral lungs are clear w ith no evidence for pleural effusion or pneumothorax. There are no acute osseous abnormaliti es. There are clips in the upper abdomen. IMPRESSION - No acute findings. Dictated and Sig yon by: Delgado Burnett MD Electronically signed: 07/02/2015 1:43 PM ED COURSE & MEDICAL DECISION MAKING Pertinent Labs & Imaging studies were reviewed. See chart for details. (EMS notes and Nursi ng home records reviewed, if applicable.) Medications and Allergy list reviewed. Nurses note and old records were reviewed Patient is a 30 y.o. male who presents with Chest Pain and Shortness of Breath Patient is young and appears relatively healthy, without significant risk factors or family history of premature coronary disease. However, did initiate workup with cxr, ekg and labs . Physical exam is notable for anxiety. History is notable for significant alcohol consump tion with possible withdrawal given that he has not had any alcohol for a few days. However , he remains hemodynamically stable and does not appear at risk of DTs at this time. However , did review concerning symptoms to monitor that would necessitate he present emergently to ER for further evaluation and management. Reviewed results with patient. Advised further treatment with Ativan for possible ETOH withdrawal. Rx for home use provide d. 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 They state that they will attempt t o monitor and manage at home. Further directions provided in written AVS. Stressed importance of close follow-up with regular provider for re-evaluation and further workup as needed if symptoms do not improve or resolve. Patient is discharged home in improved and good condition. Hemodynamically stable. Meds ordered: Administrations This Visit LORazepam (ATIVAN) injection 1 mg Admin Date Action Dose Route Administered By 07/02/2015 Given 1 mg Intravenous Tejal Stoner RN Admin Date Action Dose Route Administered By 07/02/2015 Given 1 mg Intravenous Tejal Stoner RN pantoprazole (PROTONIX) injection 40 mg Admin Date Action Dose Route Administered By 07/02/2015 Given 40 mg Intravenous Tejal Stoner RN potassium chloride (K-DUR) ER tablet 40 mEq Admin Date Action Dose Route Administered By 07/02/2015 Given 40 mEq Oral Tejal Stoner RN Upon re-evaluation, patient reports less anxious, no chest pain, no sob. Last Set of Vital Signs: Pulse: 84 Resp: 16 SpO2: 96 % BP: 138/80 mmHg FINAL IMPRESSION ICD-10-CM ICD-9-CM 1. Alcohol withdrawal, uncomplicated (HCC) F10.230 291.81 2. Alcohol abuse F10.10 305.00 3. Anxiety F41.9 300.00 4. Transaminitis R74.0 790.4 5. Hypokalemia E87.6 276.8 Follow-up Information Follow up with Pop Del Valle NP In 3 days. Specialty: Nurse Practitioner Contact information: [address] [place] [address] Follow up with [facility]. Specialty: Emergency Medicine Why: If symptoms worsen, As needed Contact information: [place] [phone] Discharge Medication List as of 07/02/2015 14:40 START taking these medications Details LORazepam (ATIVAN) 1 mg tablet Take 1 tablet by mouth every 8 hours as needed for Anxiety.D isp-12 tablet, R-0, Print Zari Hilton MD 07/05/15 0559 do cumented in this encounter Miscellaneous Notes ED Triage Notes - Tejal Stoner RN - 07/02/2015 11:56 AM PSTPt states that he has been fitzgerald ving some chest pain for the past week, got much worse today, states he has some anxiety and shortness of breath, lightheaded. documented in this encounter Plan of Treatment Not on filedocumented as of this encounter Procedures + +--------+ + + + | Procedure Name | Priori | Date/Time | Associated Diagnosis | Comments | | | ty | | | | + +--------+ + + + | HEPATITIS PANEL, | Add-On | 07/02/2015 | | Results for this | | ACUTE | | 1:22 PM | | procedure are in the | | | | PST | | results section. | + +--------+ + + + | XR CHEST PA AND | STAT | 07/02/2015 | | Results for this | | LATERAL | | 12:52 PM | | procedure are in the | | | | PST | | results section. | + +--------+ + + + | URINALYSIS WITH | STAT | 07/02/2015 | | Results for this | | MICROSCOPIC WITH | | 12:49 PM | | procedure are in the | | CULTURE IF INDICATED | | PST | | results section. | + +--------+ + + + | DRUGS OF ABUSE, | STAT | 07/02/2015 | | Results for this | | SCREEN, URINE | | 12:49 PM | | procedure are in the | | | | PST | | results section. | + +--------+ + + + | CBC W/AUTO | STAT | 07/02/2015 | | Results for this | | DIFFERENTIAL | | 12:21 PM | | procedure are in the | | | | PST | | results section. | + +--------+ + + + | TROPONIN I | STAT | 07/02/2015 | | Results for this | | | | 12:21 PM | | procedure are in the | | | | PST | | results section. | + +--------+ + + + | PROTIME INR | STAT | 07/02/2015 | | Results for this | | | | 12:21 PM | | procedure are in the | | | | PST | | results section. | + +--------+ + + + | TSH | Add-On | 07/02/2015 | | Results for this | | | | 12:21 PM | | procedure are in the | | | | PST | | results section. | + +--------+ + + + | LIPASE | Add-On | 07/02/2015 | | Results for this | | | | 12:21 PM | | procedure are in the | | | | PST | | results section. | + +--------+ + + + | COMPREHENSIVE | STAT | 07/02/2015 | | Results for this | | METABOLIC PANEL | | 12:21 PM | | procedure are in the | | | | PST | | results section. | + +--------+ + + + | ECG 12 LEAD | Routin | 07/02/2015 | | Results for this | | | e | 11:59 AM | | procedure are in the | | | | PST | | results section. | + +--------+ + + + documented in this encounter Results Hepatitis Panel, Acute (07/02/2015 1:22 PM PST) + + + + + + | Component | Value | Ref Range | Performed | Pathologist | | | | | At | Signature | + + + + + + | Hepatitis A | Non Reactive | NR | [facility] | | | Ab IgM | | | [facility] | | + + + + + + | Hepatitis B | Non Reactive | NR | [facility] | | | Surface Ag | | | [facility] | | + + + + + + | Hepatitis B | Non Reactive | NR | [facility] | | | Core Ab | | | [facility] | | | IgM | | | | | + + + + + + | Hepatitis C | See CommentsComment: Non | NR | REFERENCE | | | Ab | ReactiveHepatitis C: | | [facility] | | | | Absence of antibody | | | | | | suggests no past | | | | | | Hepatitis C | | | | | | virusinfection. Since | | | | | | antibody development may | | | | | | be delayed up to 6 | | | | | | monthsafter infection, | | | | | | retesting may be | | | | | | indicated. | | | | + + + + + + | Hepatitis | See CommentsComment: No | | REFERENCE | | | Interpretat | serologic evidence of | | [facility] | | | ion: | HAV, HBV or HCV | | | | | | infection.Testing | | | | | | Performed: [facility], [address] | | | | | [address], [place] | | | | | | [address] | | | | + + + + + + + + | Specimen | + + | Blood specimen | | (specimen) | + + + + + + + | Performing | Address | City/State/Zipcode | Phone Number | | Organization | | | | + + + + + | [facility] | [address] | [place] [address] | [phone] | + + + + + XR Chest PA and Lateral (07/02/2015 12:52 PM PST) + + | Specimen | + + | | + + + + + | Narrative | Performed At | + + + | XR CHEST PA AND LATERAL 07/02/2015 12:52 PM HISTORY: sob, chest | [facility] | | pain. COMPARISON: None. Findings: Heart size is at the upper | | | limits of normal. Aorta is normal. Mediastinum is unremarkable. | | | Central pulmonary vasculature is normal. The bilateral lungs are | | | clear with no evidence for pleural effusion or pneumothorax. There are | | | no acute osseous abnormalities. There are clips in the upper | | | abdomen. IMPRESSION - No acute findings. Dictated and Signed | | | by: Delgado Burnett MD Electronically signed: 07/02/2015 1:43 PM | | + + + + + | Procedure Note | + + | Theo, Rad Results In - 07/02/2015 1:46 PM PST XR CHEST PA AND LATERAL 07/02/2015 12:52 | | PMHISTORY: sob, chest pain.COMPARISON: None.Findings:Heart size is at the upper limits | | of normal. Aorta is normal. Mediastinum isunremarkable. Central pulmonary vasculature is | | normal. The bilateral lungs areclear with no evidence for pleural effusion or | | pneumothorax. There are no acuteosseous abnormalities. There are clips in the upper | | abdomen.IMPRESSION -No acute findings.Dictated and Signed by: Delgado Burnett MD | | Electronically signed: 07/02/2015 1:43 PM | |Heart size is at the upper limits of normal. Aorta is normal. Mediastinum is | |unremarkable. Central pulmonary vasculature is normal. The bilateral lungs are | |clear with no evidence for pleural effusion or pneumothorax. There are no acute | |osseous abnormalities. There are clips in the upper abdomen. | | | |IMPRESSION - | |No acute findings. | | | |Dictated and Signed by: Delgado Burnett MD | | Electronically signed: 07/02/2015 1:43 PM | + + + +---------+ + + | Performing | Address | City/State/Zipcode | Phone Number | | Organization | | | | + +---------+ + + | [facility] | | | | + +---------+ + + Drugs of Abuse, Screen, Urine (07/02/2015 12:49 PM PST) + + + + + + | Component | Value | Ref Range | Performed | Pathologist | | | | | At | Signature | + + + + + + | Amphetamine | Negative | Negative | [facility] | | | Screen, | | | [facility] | | | Urine | | | MEDICAL | | | | | | CENTER - | | | | | | LABORATORY | | + + + + + + | Barbiturate | Negative | Negative | [facility] | | | s Screen, | | | [facility] | | | Urine | | | MEDICAL | | | | | | CENTER - | | | | | | LABORATORY | | + + + + + + | Benzodiazep | Negative | Negative | [facility] | | | sonu | | | [facility] | | | Screen, | | | MEDICAL | | | Urine | | | CENTER - | | | | | | LABORATORY | | + + + + + + | Cannabinoid | Negative | Negative | [facility] | | | s Screen, | | | [facility] | | | Urine | | | MEDICAL | | | | | | CENTER - | | | | | | LABORATORY | | + + + + + + | Cocaine | Negative | Negative | [facility] | | | Screen, | | | [facility] | | | Urine | | | MEDICAL | | | | | | CENTER - | | | | | | LABORATORY | | + + + + + + | Methadone | Negative | Negative | [facility] | | | Screen, | | | [facility] | | | Urine | | | MEDICAL | | | | | | CENTER - | | | | | | LABORATORY | | + + + + + + | Opiates | Negative | Negative | [facility] | | | Screen, | | | [facility] | | | Urine | | | MEDICAL | | | | | | CENTER - | | | | | | LABORATORY | | + + + + + + + + | Specimen | + + | Urine - Urine | | specimen obtained by | | clean catch | | procedure (specimen) | + + + + + + + | Performing | Address | City/State/Zipcode | Phone Number | | Organization | | | | + + + + + | [facility] | [address] | [place] | [phone] | | [facility] | | [address] | | | - LABORATORY | | | | + + + + + Urinalysis with Microscopic with Culture if Indicated (07/02/2015 12:49 PM PST) + + + + + + | Component | Value | Ref Range | Performed | Pathologist | | | | | At | Signature | + + + + + + | Color, | Yellow | Light Yellow, | [facility] | | | Urine | | Yellow, Straw | [facility] | | | | | | MEDICAL | | | | | | CENTER - | | | | | | LABORATORY | | + + + + + + | Clarity, | Hazy | | [facility] | | | Urine | | | [facility] | | | | | | MEDICAL | | | | | | CENTER - | | | | | | LABORATORY | | + + + + + + | pH, Urine | 8.0 | 5.0 - 8.0 | [facility] | | | | | | [facility] | | | | | | MEDICAL | | | | | | CENTER - | | | | | | LABORATORY | | + + + + + + | Specific | 1.010 | 1.001 - 1.030 | [facility] | | | [place], | | | [facility] | | | Urine | | | MEDICAL | | | | | | CENTER - | | | | | | LABORATORY | | + + + + + + | Protein, | Negative | Negative | [facility] | | | Urine | | | [facility] | | | | | | MEDICAL | | | | | | CENTER - | | | | | | LABORATORY | | + + + + + + | Blood, | Negative | Negative | [facility] | | | Urine | | | [facility] | | | | | | MEDICAL | | | | | | CENTER - | | | | | | LABORATORY | | + + + + + + | Glucose, | Negative | Negative | [facility] | | | Urine | | | [facility] | | | | | | MEDICAL | | | | | | CENTER - | | | | | | LABORATORY | | + + + + + + | Ketones, | Negative | Negative | [facility] | | | Urine | | | [facility] | | | | | | MEDICAL | | | | | | CENTER - | | | | | | LABORATORY | | + + + + + + | Bilirubin, | Negative | Negative | [facility] | | | Urine | | | [facility] | | | | | | MEDICAL | | | | | | CENTER - | | | | | | LABORATORY | | + + + + + + | Nitrite, | Negative | Negative | [facility] | | | Urine | | | [facility] | | | | | | MEDICAL | | | | | | CENTER - | | | | | | LABORATORY | | + + + + + + | Leukocyte | Negative | Negative | [facility] | | | Esterase, | | | [facility] | | | Urine | | | MEDICAL | | | | | | CENTER - | | | | | | LABORATORY | | + + + + + + | Urobilinoge | Negative | < 0.2 mg/dL, | [facility] | | | n, Urine | | 1.0 mg/dL, 4.0 | [facility] | | | | | mg/dL, Normal, | MEDICAL | | | | | 1.0 E.U./dL, | CENTER - | | | | | 0.2 E.U./dL, | LABORATORY | | | | | 0.2 mg/dL, | | | | | | Negative, 1 | | | | | | mg/dL, <2.0 | | | | | | mg/dL | | | + + + + + + | White Blood | 2-5 (A) | 0 - 2 /HPF | [facility] | | | Cells, | | | [facility] | | | Urine | | | MEDICAL | | | | | | CENTER - | | | | | | LABORATORY | | + + + + + + | Red Blood | 0-2 | 0 - 2 /HPF | [facility] | | | Cells, | | | [facility] | | | Urine | | | MEDICAL | | | | | | CENTER - | | | | | | LABORATORY | | + + + + + + | Squamous | 0-2 | 0 - 2 /LPF | [facility] | | | Epithelial | | | [facility] | | | Cells, | | | MEDICAL | | | Urine | | | CENTER - | | | | | | LABORATORY | | + + + + + + | Bacteria, | 1+ (A) | Negative /HPF | [facility] | | | Urine | | | [facility] | | | | | | MEDICAL | | | | | | CENTER - | | | | | | LABORATORY | | + + + + + + | Mucus, | Present (A) | Negative /LPF | [facility] | | | Urine | | | [facility] | | | | | | MEDICAL | | | | | | CENTER - | | | | | | LABORATORY | | + + + + + + | Urine | Urine Culture Not | | [facility] | | | Comment | Indicated | | [facility] | | | | | | MEDICAL | | | | | | CENTER - | | | | | | LABORATORY | | + + + + + + + + | Specimen | + + | Urine - Urine | | specimen obtained by | | clean catch | | procedure (specimen) | + + + + + + + | Performing | Address | City/State/Zipcode | Phone Number | | Organization | | | | + + + + + | [facility] | [address] | [place] | [phone] | | [facility] | | [address] | | | - LABORATORY | | | | + + + + + Lipase (07/02/2015 12:21 PM PST) + +-------+ + + + | Component | Value | Ref Range | Performed | Pathologist | | | | | At | Signature | + +-------+ + + + | Lipase | 30 | 0 - 60 U/L | [facility] | | | | | | [facility] | | | | | | MEDICAL | | | | | | CENTER - | | | | | | LABORATORY | | + +-------+ + + + + + | Specimen | + + | Blood | + + + + + + + | Performing | Address | City/State/Zipcode | Phone Number | | Organization | | | | + + + + + | [facility] | [address] | [place], [place] | [phone] | | [facility] | | [address] | | | - LABORATORY | | | | + + + + + TSH (07/02/2015 12:21 PM PST) + + + + + + | Component | Value | Ref Range | Performed | Pathologist | | | | | At | Signature | + + + + + + | TSH | 0.67Comment: All TSH | 0.34 - 5.60 | [facility] | | | | samples are screened | uIU/mL | [facility] | | | | using a 2nd Generation | | MEDICAL | | | | test, and are reflexed | | CENTER - | | | | to a 3rd Generation test | | LABORATORY | | | | if indicated. | | | | + + + + + + + + | Specimen | + + | Blood | + + + + + + + | Performing | Address | City/State/Zipcode | Phone Number | | Organization | | | | + + + + + | [facility] | [address] | [place], [place] | [phone] | | [facility] | | [address] | | | - LABORATORY | | | | + + + + + Protime INR (07/02/2015 12:21 PM PST) + + + + + + | Component | Value | Ref Range | Performed | Pathologist | | | | | At | Signature | + + + + + + | Prothrombin | 14.5 (H) | 11.3 - 13.9 | [facility] | | | Time | | seconds | [facility] | | | | | | MEDICAL | | | | | | CENTER - | | | | | | LABORATORY | | + + + + + + | INR | 1.08Comment: Usual Oral | 0.90 - 1.10 | [facility] | | | | Anticoagulation Range: | | [facility] | | | | 2.0 - 3.0High | | MEDICAL | | | | Level Oral | | CENTER - | | | | Anticoagulation Range: | | LABORATORY | | | | 2.5 - 3.5 | | | | + + + + + + + + | Specimen | + + | Blood | + + + + + + + | Performing | Address | City/State/Zipcode | Phone Number | | Organization | | | | + + + + + | [facility] | [address] | [place] | [phone] | | [facility] | | [address] | | | - LABORATORY | | | | + + + + + Troponin I (07/02/2015 12:21 PM PST) + + + + + + | Component | Value | Ref Range | Performed | Pathologist | | | | | At | Signature | + + + + + + | Troponin I | 0.01Comment: Reference | <0.06 ng/mL | [facility] | | | | Ranges:0.00-0.06 = | | [facility] | | | | NORMAL>0.06 = | | MEDICAL | | | | SUSPICIOUS FOR | | CENTER - | | | | MYOCARDIAL DAMAGE NOTE: | | LABORATORY | | | | Values greater than 0.50 | | | | | | ng/mL have been shown | | | | | | to be strongly | | | | | | associated with acute | | | | | | myocardial infarction. | | | | | | The [employer] | | | | | | Cardiology (ACC) | | | | | | recommends a decision | | | | | | limit of 0.06 ng/mL for | | | | | | this assay. Results | | | | | | greater than 0.06 can | | | | | | reflect a pre-infarct | | | | | | acute coronary syndrome, | | | | | | but can also reflect | | | | | | myocardial necrosis or | | | | | | injury that is not due | | | | | | to coronary artery | | | | | | disease. Some of these | | | | | | causes are sepsis, | | | | | | hypocolemia, atrial | | | | | | fibrillation, heart | | | | | | failure, pulmonary | | | | | | embolism, myocarditis, | | | | | | myocardial contusion, | | | | | | and renal failure. The | | | | | | diagnosis of myocardial | | | | | | infarction should be | | | | | | based on a combination | | | | | | of the patient's | | | | | | clinical presentation | | | | | | and the clinical | | | | | | laboratory test results | | | | | | (especially serial | | | | | | troponin levels). | | | | + + + + + + + + | Specimen | + + | Blood | + + + + + + + | Performing | Address | City/State/Zipcode | Phone Number | | Organization | | | | + + + + + | [facility] | [address] | [place] | [phone] | | [facility] | | [address] | | | - LABORATORY | | | | + + + + + Comprehensive Metabolic Panel (07/02/2015 12:21 PM PST) + + + + + + | Component | Value | Ref Range | Performed | Pathologist | | | | | At | Signature | + + + + + + | Na | 138 | 136 - 149 | [facility] | | | | | mmol/L | [facility] | | | | | | MEDICAL | | | | | | CENTER - | | | | | | LABORATORY | | + + + + + + | K | 3.2 (L) | 3.5 - 5.1 | [facility] | | | | | mmol/L | [facility] | | | | | | MEDICAL | | | | | | CENTER - | | | | | | LABORATORY | | + + + + + + | Cl | 104 | 98 - 109 mmol/L | [facility] | | | | | | [facility] | | | | | | MEDICAL | | | | | | CENTER - | | | | | | LABORATORY | | + + + + + + | CO2 | 25 | 24 - 31 mmol/L | [facility] | | | | | | [facility] | | | | | | MEDICAL | | | | | | CENTER - | | | | | | LABORATORY | | + + + + + + | Anion Gap | 9 | 3 - 16 mmol/L | [facility] | | | | | | [facility] | | | | | | MEDICAL | | | | | | CENTER - | | | | | | LABORATORY | | + + + + + + | Glucose | 124 (H) | 70 - 109 mg/dL | [facility] | | | | | | [facility] | | | | | | MEDICAL | | | | | | CENTER - | | | | | | LABORATORY | | + + + + + + | BUN | 9 | 7 - 18 mg/dL | [facility] | | | | | | [facility] | | | | | | MEDICAL | | | | | | CENTER - | | | | | | LABORATORY | | + + + + + + | Creatinine | 0.95 | 0.60 - 1.30 | [facility] | | | | | mg/dL | [facility] | | | | | | MEDICAL | | | | | | CENTER - | | | | | | LABORATORY | | + + + + + + | eGFR, | >60Comment: GLOMERULAR | >=60 | [facility] | | | non- | FILTRATION | mL/min/1.73m2 | [facility] | | | Prydeinig | RATE,ESTIMATED | | MEDICAL | | | | mL/min/1.09h0Jyjt than | | CENTER - | | | | 60 Chronic kidney | | LABORATORY | | | | disease,if found over a | | | | | | 3-month period.Less than | | | | | | 15 Kidney failureFor | | | | | | | | | | | | Americans,multiply the | | | | | | calculated GFR by 1.21. | | | | | | | | | | + + + + + + | Calcium | 9.1 | 8.3 - 10.5 | [facility] | | | | | mg/dL | [facility] | | | | | | MEDICAL | | | | | | CENTER - | | | | | | LABORATORY | | + + + + + + | Albumin | 4.2 | 3.2 - 5.0 g/dL | [facility] | | | | | | [facility] | | | | | | MEDICAL | | | | | | CENTER - | | | | | | LABORATORY | | + + + + + + | Bilirubin | 3.1 (H) | 0.1 - 1.5 mg/dL | [facility] | | | Total | | | [facility] | | | | | | MEDICAL | | | | | | CENTER - | | | | | | LABORATORY | | + + + + + + | Total | 6.6 | 6.0 - 7.8 g/dL | [facility] | | | Protein | | | [facility] | | | | | | MEDICAL | | | | | | CENTER - | | | | | | LABORATORY | | + + + + + + | AST | 50 (H) | 10 - 42 U/L | [facility] | | | | | | [facility] | | | | | | MEDICAL | | | | | | CENTER - | | | | | | LABORATORY | | + + + + + + | ALT | 68 (H) | 6 - 45 U/L | [facility] | | | | | | [facility] | | | | | | MEDICAL | | | | | | CENTER - | | | | | | LABORATORY | | + + + + + + | Alkaline | 58 | 40 - 110 U/L | [facility] | | | Phosphatase | | | [facility] | | | | | | MEDICAL | | | | | | CENTER - | | | | | | LABORATORY | | + + + + + + | Globulin | 2.4 | g/dL | [facility] | | | | | | [facility] | | | | | | MEDICAL | | | | | | CENTER - | | | | | | LABORATORY | | + + + + + + | Albumin/Brianda | 1.8 | | [facility] | | | bulin Ratio | | | [facility] | | | | | | MEDICAL | | | | | | CENTER - | | | | | | LABORATORY | | + + + + + + | BUN/Creatin | 9.5 | | [facility] | | | ine Ratio | | | [facility] | | | | | | MEDICAL | | | | | | CENTER - | | | | | | LABORATORY | | + + + + + + + + | Specimen | + + | Blood | + + + + + + + | Performing | Address | City/State/Zipcode | Phone Number | | Organization | | | | + + + + + | [facility] | [address] | [place] | [phone] | | [facility] | | [address] | | | - LABORATORY | | | | + + + + + CBC w/ Auto Differential (07/02/2015 12:21 PM PST) + + + + + + | Component | Value | Ref Range | Performed | Pathologist | | | | | At | Signature | + + + + + + | White Blood | 8.5 | 4.0 - 11.0 K/uL | [facility] | | | Cells | | | [facility] | | | | | | MEDICAL | | | | | | CENTER - | | | | | | LABORATORY | | + + + + + + | Red Blood | 5.71 (H) | 4.30 - 5.70 | [facility] | | | Cells | | M/uL | [facility] | | | | | | MEDICAL | | | | | | CENTER - | | | | | | LABORATORY | | + + + + + + | Hemoglobin | 16.4 | 13.5 - 18.0 | [facility] | | | | | g/dL | [facility] | | | | | | MEDICAL | | | | | | CENTER - | | | | | | LABORATORY | | + + + + + + | Hematocrit | 48.2 | 40.0 - 51.0 % | [facility] | | | | | [facility] | [facility] | [facility] | | | | | | CENTER - | | | | | | LABORATORY | | + + + + + + | MCV | 84.4 | 83.0 - 101.0 fL | [facility] | | | | | | [facility] | | | | | | MEDICAL | | | | | | CENTER - | | | | | | LABORATORY | | + + + + + + | MCH | 28.7 | 28.0 - 35.0 pg | [facility] | | | | | | [facility] | | | | | | MEDICAL | | | | | | CENTER - | | | | | | LABORATORY | | + + + + + + | MCHC | 34.0 | 32.0 - 36.0 | [facility] | | | | | g/dL | [facility] | | | | | | MEDICAL | | | | | | CENTER - | | | | | | LABORATORY | | + + + + + + | RDW-CV | 13.4 | <15.0 % | [facility] | | | | | | [facility] | | | | | | MEDICAL | | | | | | CENTER - | | | | | | LABORATORY | | + + + + + + | Platelet | 188 | 140 - 440 K/uL | [facility] | | | Count | | | [facility] | | | | | | MEDICAL | | | | | | CENTER - | | | | | | LABORATORY | | + + + + + + | MPV | 8.1 | fL | [facility] | | | | | | [facility] | | | | | | MEDICAL | | | | | | CENTER - | | | | | | LABORATORY | | + + + + + + | % | 65.3 | 45.0 - 82.0 % | [facility] | | | Neutrophils | | | [facility] | | | | | | MEDICAL | | | | | | CENTER - | | | | | | LABORATORY | | + + + + + + | % | 25.8 | 20.0 - 45.0 % | [facility] | | | Lymphocytes | | | [facility] | | | | | | MEDICAL | | | | | | CENTER - | | | | | | LABORATORY | | + + + + + + | % Monocytes | 7.1 | 4.0 - 12.0 % | [facility] | | | | | | [facility] | | | | | | MEDICAL | | | | | | CENTER - | | | | | | LABORATORY | | + + + + + + | % | 0.4 | 0.0 - 5.0 % | [facility] | | | Eosinophils | | | [facility] | | | | | | MEDICAL | | | | | | CENTER - | | | | | | LABORATORY | | + + + + + + | % Basophils | 1.4 (H) | 0.0 - 1.0 % | [facility] | | | | | | [facility] | | | | | | MEDICAL | | | | | | CENTER - | | | | | | LABORATORY | | + + + + + + | Absolute | 5.50 | 1.80 - 8.50 | [facility] | | | Neutrophils | | K/uL | [facility] | | | | | | MEDICAL | | | | | | CENTER - | | | | | | LABORATORY | | + + + + + + | Absolute | 2.20 | 0.60 - 3.20 | [facility] | | | Lymphocytes | | K/uL | [facility] | | | | | | MEDICAL | | | | | | CENTER - | | | | | | LABORATORY | | + + + + + + | Absolute | 0.60 | 0.00 - 1.00 | [facility] | | | Monocytes | | K/uL | [facility] | | | | | | MEDICAL | | | | | | CENTER - | | | | | | LABORATORY | | + + + + + + | Absolute | 0.00 | 0.00 - 0.40 | [facility] | | | Eosinophils | | K/uL | [facility] | | | | | | MEDICAL | | | | | | CENTER - | | | | | | LABORATORY | | + + + + + + | Absolute | 0.10 | 0.00 - 0.10 | [facility] | | | Basophils | | K/uL | [facility] | | | | | | MEDICAL | | | | | | CENTER - | | | | | | LABORATORY | | + + + + + + + + | Specimen | + + | Blood | + + + + + + + | Performing | Address | City/State/Zipcode | Phone Number | | Organization | | | | + + + + + | [facility] | [address] | [place] | [phone] | | [facility] | | [address] | | | - LABORATORY | | | | + + + + + ECG 12 lead (07/02/2015 11:59 AM PST) + + + + + + | Component | Value | Ref Range | Performed | Pathologist | | | | | At | Signature | + + + + + + | VENTRICULAR | 94 | BPM | [facility] | | | RATE EKG | | | | | + + + + + + | ATRIAL RATE | 94 | BPM | [facility] | | + + + + + + | P-R | 166 | ms | [facility] | | | INTERVAL | | | | | + + + + + + | QRS | 96 | ms | [facility] | | | DURATION | | | | | + + + + + + | Q-T | 346 | ms | [facility] | | | INTERVAL | | | | | + + + + + + | Q-T | 432 | ms | [facility] | | | INTERVAL | | | | | | (CORRECTED) | | | | | + + + + + + | P WAVE AXIS | 55 | degrees | [facility] | | + + + + + + | QRS AXIS | -14 | degrees | [facility] | | + + + + + + | T AXIS | 56 | degrees | [facility] | | + + + + + + | INTERPRETAT | Normal sinus | | [facility] | | | ION TEXT | rhythmNormal ECGNo | | | | | | previous ECGs | | | | | | availableConfirmed by | | | | | | KATE CARNEY MD | | | | | | ([id number]) on 07/02/2015 | | | | | | 6:29:20 PM | | | | + + + + + + + + | Specimen | + + | | + + + + + | Narrative | Performed At | + + + | | | + + + + +---------+ + + | Performing | Address | City/State/Zipcode | Phone Number | | Organization | | | | + +---------+ + + | [facility] | | | | + +---------+ + + documented in this encounter Visit Diagnoses + + | Diagnosis | + + | Alcohol withdrawal, uncomplicated (HCC) - Primary | + + | Alcohol abuse Alcohol abuse, unspecified | + + | Anxiety Anxiety state, unspecified | + + | Transaminitis Nonspecific elevation of levels of transaminase or lactic acid | | dehydrogenase (LDH) | + + | Hypokalemia Hypopotassemia | + + documented in this encounter Administered Medications + +--------+ +------+------+------+ | Medication Order | MAR | Action | Dose | Rate | Site | | | Action | Date | | | | + +--------+ +------+------+------+ | LORazepam (ATIVAN) injection 1 | Given | 07/02/19 | 1 mg | | | | mg 1 mg, Intravenous, ONCE, Mariya | | 16 12:16 | | | | | 07/02/15 at 1210, For 1 dose | | PM PST | | | | + +--------+ +------+------+------+ +---+---+ | | | +---+---+ + +-------+ +------+---+---+ | LORazepam (ATIVAN) injection 1 | Given | 07/02/19 | 1 mg | | | | mg 1 mg, Intravenous, ONCE, Mariya | | 16 2:22 | | | | | 07/02/15 at 1415, For 1 dose | | PM PST | | | | + +-------+ +------+---+---+ +---+---+ | | | +---+---+ + +-------+ +-------+---+---+ | pantoprazole (PROTONIX) | Given | 07/02/19 | 40 mg | | | | injection 40 mg 40 mg, | | 16 12:17 | | | | | Intravenous, ONCE, Mariya 07/02/15 at | | PM PST | | | | | 1210, For 1 dose, Mix each 40mg | | | | | | | vial with 10 mL NS to make 4 | | | | | | | mg/mL., | | | | | | + +-------+ +-------+---+---+ +---+---+ | | | +---+---+ + +-------+ +--------+---+---+ | potassium chloride (K-DUR) ER | Given | 07/02/19 | 40 mEq | | | | tablet 40 mEq 40 mEq, Oral, | | 16 1:13 | | | | | ONCE, [facility] 07/02/15 at 1300, For 1 | | PM PST | | | | | dose | | | | | | + +-------+ +--------+---+---+ +---+---+ | | | +---+---+ documented in this encounter
--- OUTSIDE RECORDS SUMMARY | ~2020-02-05 | XMS | Clinical Summary ---
Demographics + + + | Address | [address] | | | [place] [address] | + + + | Home Phone | | + + + | Preferred Language | Unknown | + + + | Marital Status | | + + + | Mosque Affiliation | Unknown | + + + | Race | White | + + + | Ethnic Group | Not or | + + + Author + + + | Author | [facility] | | | and [place] | + + + | Organization | [facility] | | | [...] [place] | | | | | [address] | | + + + + + | Bessie Vizcaino | ECON | [place] | | | | | [address] | | + + + + + Care Team Providers + +------+ + | Care Interlocking Pavement Installer Name | Role | Phone | + +------+ + | Pop Del Valle NP | PCP | | + +------+ + Allergies + + + + + + | Active Allergy | Reactions | Severity | Noted | Comments | | | | | Date | | + + + + + + | Morphine | | | 07/02/19 | Anxiety | | | | | 16 | | + + + + + + Medications + + + +---------+------+------+-------+ | Medication | Sig | Dispensed | Refills | Star | End | Statu | | | | | | t | Date | s | | | | | | Date | | | + + + +---------+------+------+-------+ | dexlansoprazole | Take 60 mg by mouth | | 0 | | | Activ | | (DEXILANT) [address] | Daily. | | | | | e | | capsule | | | | | | | + + + +---------+------+------+-------+ | LORazepam (ATIVAN) | Take 1 tablet by | 12 | 0 | 03/1 | | Activ | | 1 mg tablet | mouth every 8 hours | tablet | | 0/20 | | e | | | as needed for | | | 16 | | | | | Anxiety. | | | | | | + + + +---------+------+------+-------+ Active Problems Not on file Social History + +-------+ +--------+------+ | Tobacco [...] on file | | + + + Last Filed Vital Signs + + + [...] | | + + + + + Plan of Treatment + + +-------+ + | Health Maintenance | Due Date | Last | Comments | | | | Done | | + + +-------+ + | Vaccine: | | | | | Dtap/Tdap/Td (1 - | 3 | | | | Tdap) | | | | + + +-------+ + | Vaccine: Influenza | | | | | (#1) | 0 | | | + + +-------+ + Results Not on filefrom Last 3 Months Insurance + +--------+ +--------+ +---------+--------+ | Payer | Benefi | Subscriber | Effect | Phone | Address | Type | | | t Plan | ID | delphine | | | | | | / | | Dates | | | | | | Group | | | | | | + +--------+ +--------+ +---------+--------+ | [employer] | [employer] | [id number] | | [phone] | | Medica | | MEDICAID HMO | HEALTH | | 020-Pr | 1 | | id | | | MDCD | | esent | | | | | | [place]MO [place] | | | | | | + +--------+ +--------+ +---------+--------+ + +--------+ +--------+ + + | Guarantor Name | Accoun | Relation to | Date | Phone | Billing Address | | | t Type | Patient | of | | | | | | | | | | + +--------+ +--------+ + + | Gómez Balderas | Person | Self [birth year] | [address] | | | al/Fam | | 1985 | [phone] | [place] [address] | | | pino | | | 0 (Home) | | | | | | | [phone] | | | | | | | 4 (Work) | | + +--------+ +--------+ + + Advance Directives + + + + + | Type | Date Recorded | Patient | Explanation | | | | Assembler Body | | + + + + + | Power of | | | | | Wide Area Network Systems Administrator | | | | + + + + + | Advance | 07/02/2015 2:20 | | | | Directive | PM | | | + + + + +
--- OUTSIDE RECORDS SUMMARY | ~2020-02-05 | XMS | Encounter Summary ---
Demographics + + + | Address | [address] | | | [place] [address] | + + + | Home Phone | | + + + | Preferred Language | Unknown | + + + | Marital Status | | + + + | Mandaeism Affiliation | Unknown | + + + | Race | White | + + + | Ethnic Group | Not or | + + + Author + + + | Author | [facility] | | | and [place] | + + + | Organization | [facility] | | | and [place] | + + + | Address | Unknown | + + + | Phone | Unavailable | + + + Support + + + + + | Name | Relationship | Address | Phone | + + + + + | Scout Bonilla | ECON | [address] | | | | | [place] | | | | | [address] | | + + + + + | [place] | ECON | [place] | | | | | [address] | | + + + + + Care Team Providers + +------+ + | Care Card Tender Name | Role | Phone | + +------+ + PCP | Unavailable | + +------+ + Encounter Details +--------+ + + + + | Date | Type | Department | Care Team | Description | +--------+ + + + + | 04/06/ | Hospital | [facility] | Abril Arias | | | 2011 | Encounter | [facility] | MD [address] | | | | | CENTER [address] | [facility], | | | | | [place], [place] | [place] [address] | | | | | [address] | [phone] | | | | | [phone] | | | +--------+ + + + [...] documented as of this encounter ED Notes Abril Arias MD - 04/07/2012 4:33 [place] [address] Patient Name: AARON BONILLA Provider: Unit #: [id number] Location: : 1985 DATE: 04/06/2012 PRIMARY CARE: Listed as none. CHIEF COMPLAINT: Vomiting and diarrhea. HISTORY OF PRESENT ILLNESS: This is a 26-year-old male who comes ambulatory to the emergen cy department. The patient had the onset this morning of vomiting and diarrhea associated w ith abdominal cramps. His roommate is also sick. He had some tacos yesterday, which were ho memade. Did not not seem to be bad. This morning he had some chicken fried steak from [employer] in [facility]. He threw up after that, but it also did not seem to be bad. He has associated abdominal cramping. He has "not yet" had any bloody bowel movements. H as never had that problem before. No measured fever. PAST MEDICAL HISTORY: He is otherwise healthy, no previous surgeries on his abdomen. MEDICATIONS: None. ALLERGIES 1. HYDROCODONE. 2. MORPHINE. REVIEW OF SYSTEMS: He complains of diffuse abdominal pain 8/10 in severity. PHYSICAL EXAMINATION VITAL SIGNS: Temp 97.1, respirations 18, heart rate 101, blood pressure 133/85, O2 saturat ion 97% on room air, 77 kg. GENERAL: Well-appearing male who looks like he does not feel well. SKIN: Warm, dry, no jaundice. HEENT: Head: Normocephalic, atraumatic. Pupils equal, round, reactive to light. No scleral icterus. HEART: Regular rate, rhythm. No tachycardia at the time of my assessment. LUNGS: Clear to auscultation throughout bilaterally. ABDOMEN: Active bowel sounds, he is not particularly hyperactive. He is diffusely tender to palpation , but there is no rebound tenderness. No abdominal rigidity or voluntary guard ing. He is moving about well in the bed. NEUROLOGIC: The patient is awake, alert, oriented, mostly lying in a curled up position. EMERGENCY DEPARTMENT COURSE: He was initially given Zofran 8 mg ODT here and some Bentyl I M for abdominal cramping. He got relief from the cramping. He did not get relief from the n ausea. He was not happy about having received a painful injection and deferred any further injections. Therefore he was given Phenergan 25 mg p.o. liquid. That really did not relie ve his nausea. However, his vomiting had definitely abated, he was tolerating p.o. liquids and I think at this point he can be safely discharged. We discussed the nature of viral and foodborne gastroenteritis with a self-limiting course over a couple of days. He is advised antidiarrheals are not at all recommended. He did take some Pepto- Bismol this morning but threw it up. He will be given a prescription for Phenergan syrup, along with Zofran. He s hould wash his hands well, avoid contact with others while he is ill, and return for any co ncerns. IMPRESSION ACUTE GASTROENTERITIS. DICTATED BY: Abril Arias MD Emergency Medicine JOB #: [id number] EXT JOB #:[id number] <<Signature on File>> Abril Arias MD05/01/12 1658 < documented in this encounter Plan of Treatment Not on filedocumented as of this encounter Visit Diagnoses Not on filedocumented in this encounter
[~2020-02-05 22:42] MED LIST changes: +LEVAQUIN750 MG PO; +ULTRAM50 MG PO
--- OUTSIDE RECORDS SUMMARY | 2020-02-05 22:44 | XMS ---
PreManage Notification: AARON BONILLA Security [employer] Events No recent Security Events currently on file CRITERIA MET - [employer] CARE PROVIDERS ABELINO SIDDIQI Physician Scrap Cutter 06/26/2019-Current PHONE: [phone] Fredy has no Care Guidelines for this patient. EBryanna VISIT COUNT (12 MO.) 3 [facility] TOTAL 3 NOTE: Visits indicate total known visits. ED/UCC VISIT TRACKING (12 MO.) 02/05/2020 22:43 [facility] [place] TYPE: Emergency COMPLAINT: - TROUBLE BREATHING, SKIN IRRITATION 06/25/2019 18:33 [facility] [place] TYPE: Emergency COMPLAINT: - SOB/COUGH DIAGNOSES: - Allergy status to narcotic agent status - Other postal clerk (current) drug therapy - Lobar pneumonia, unspecified organism - Cough - Dorsalgia, unspecified 06/23/2019 13:25 [facility] [place] TYPE: Emergency COMPLAINT: - ABD PAIN DIAGNOSES: - Pneumonia, unspecified organism - Allergy status to narcotic agent status - Other snf (current) drug therapy - Cough INPATIENT VISIT TRACKING (12 MO.) No inpatient visits to display in this time frame [id number]
[2020-02-05] MEDS ORDERED: BUPRENORPHIN-N1 EACH SL (22:52)
[2020-02-05] MEDS ORDERED: LAMOTRIGINE25 MG PO (22:54)
[2020-02-05] MEDS ORDERED: LORAZEPAM1 MG PO (22:54)
[2020-02-05] MEDS ORDERED: TUMS ULTRA400 MG PO (22:55)
--- NOTE | 2020-02-08 15:19 | EKG ---
[facility] [address] [place], [place] [address] Signed Normal sinus rhythm Possible Left atrial enlargement Low voltage QRS Incomplete right bundle branch block Cannot rule out Anterior infarct , age undetermined Abnormal ECG No previous ECGs available Confirmed by JOHN LUBIN DO ([id number]) on 02/08/2020 10:52:50 AM Electronically Signed By: JOHN LUBIN DO 02/08/20 1519 PATIENT NAME: AARON BONILLA Electrocardiogram DATE OF : 81 PHYSICIAN: JOHN LUBIN DO REPORT #: [id number] REPORT IS CONFIDENTIAL AND NOT TO BE RELEASED WITHOUT AUTHORIZATION
== END 2020-02-06 00:23 | disposition home or self-care (01) ==
LOC: ED 22:42
DX: R06.00 Dyspnea, unspecified (principal); R07.89 Other chest pain; Z88.5 Allergy status to narcotic agent; Z79.899 Other long term (current) drug therapy
CPT/HCPCS: 71046; 80053; 84484; 85025; 93005; 93010; 99285-25

== ENCOUNTER 2020-02-22 11:20 | Emergency (ER) | payer OTHER ==
[~2020-02-22] VITALS: Ht 180.3 cm; Wt 86.2 kg
[~2020-02-22 11:20] MED LIST changes: +BUPRENORPHIN-N1 EACH SL; +LAMOTRIGINE25 MG PO; +LORAZEPAM1 MG PO; +TUMS ULTRA400 MG PO
--- OUTSIDE RECORDS SUMMARY | 2020-02-22 11:22 | XMS ---
PreManage Notification: AARON BONILLA Security Ice Cream Maker Events No recent Security Events currently on file CRITERIA MET - [facility] - 2 Visits in 30 Days CARE PROVIDERS ABELINO SIDDIQI Physician Global Safety Officer 06/26/2019-Current PHONE: [phone] Fredy has no Care Guidelines for this patient. Sharda VISIT COUNT (12 MO[address] 4 [facility] TOTAL 4 NOTE: Visits indicate total known visits. ED/UCC VISIT TRACKING (12 MO.) 02/22/2020 11:20 [facility] [place] TYPE: Emergency COMPLAINT: - NERVE PAIN 02/05/2020 22:43 [facility] [place] TYPE: Emergency COMPLAINT: - TROUBLE BREATHING, SKIN IRRITATION DIAGNOSES: - Other retirement (current) drug therapy - Dyspnea, unspecified - Other chest pain - Cough - Allergy status to narcotic agent 06/25/2019 18:33 [facility] [place] TYPE: Emergency COMPLAINT: - SOB/COUGH DIAGNOSES: - Allergy status to narcotic agent - Other terminal superintendent (current) drug therapy - Lobar pneumonia, unspecified organism - Cough - Dorsalgia, unspecified 06/23/2019 13:25 [facility] [place] TYPE: Emergency COMPLAINT: - ABD PAIN DIAGNOSES: - Pneumonia, unspecified organism - Allergy status to narcotic agent - Other retirement (current) drug therapy - Cough INPATIENT VISIT TRACKING (12 MO.) No inpatient visits to display in this time frame [id number]
[2020-02-22] MEDS ORDERED: ALPRAZOLAM1 MG PO (11:30)
[2020-02-22] MEDS ORDERED: ULTRAM50 MG PO (15:40)
[2020-02-22] MEDS ORDERED: AUGMENTIN 875-1 EACH PO (15:40)
== END 2020-02-22 17:05 | disposition home or self-care (01) ==
LOC: ED 11:20
DX: J18.9 Pneumonia, unspecified organism (principal); M79.10 Myalgia, unspecified site; Z88.5 Allergy status to narcotic agent; Z79.899 Other long term (current) drug therapy
CPT/HCPCS: 71046; 80053; 81001; 82550; 85025; 85651; 96374; 99283-25; J1885

== ENCOUNTER 2020-04-11 11:39 | Emergency (ER) | payer OTHER ==
[~2020-04-11] VITALS: Ht 180.3 cm; Wt 99.8 kg
[~2020-04-11 11:39] MED LIST changes: +ALPRAZOLAM1 MG PO; +AUGMENTIN 875-1 EACH PO
--- OUTSIDE RECORDS SUMMARY | 2020-04-11 11:42 | XMS ---
PreManage Notification: AARON BONILLA Security Core Stripper Events No recent Security Events currently on file CRITERIA MET - [facility] CARE PROVIDERS NUNO SCHULZ Nurse Practitioner: Family 02/24/2020-Current PHONE: [phone] ABELINO SIDDIQI Physician 06/26/2019-Current PHONE: [phone] JUNIOR FLEMING Nurse Practitioner: Psychiatric/Mental 02/24/2020-Naow PHONE: [phone] Fredy has no Care Guidelines for this patient. E.D. VISIT COUNT (12 MO.) [address] [facility] TOTAL 5 NOTE: Visits indicate total known visits. ED/UCC VISIT TRACKING (12 MO.) 04/11/2020 11:40 [facility] [place] TYPE: Emergency COMPLAINT: - FEVER, SHORTNESS OF BREATH 02/22/2020 11:20 [facility] [place] TYPE: Emergency COMPLAINT: - NERVE PAIN DIAGNOSES: - Allergy status to narcotic agent - Myalgia, unspecified site - Pneumonia, unspecified organism - Pain in thoracic spine - Other lobsterman (current) drug therapy 02/05/2020 22:43 [facility] [place] TYPE: Emergency COMPLAINT: - TROUBLE BREATHING, SKIN IRRITATION DIAGNOSES: - Other lobsterman (current) drug therapy - Dyspnea, unspecified - Other chest pain - Cough - Allergy status to narcotic agent 06/25/2019 18:33 [facility] [place] TYPE: Emergency COMPLAINT: - SOB/COUGH DIAGNOSES: - Allergy status to narcotic agent - Other lobsterman (current) drug therapy - Lobar pneumonia, unspecified organism - Cough - Dorsalgia, unspecified 06/23/2019 13:25 [facility] [place] TYPE: Emergency COMPLAINT: - ABD PAIN DIAGNOSES: - Pneumonia, unspecified organism - Allergy status to narcotic agent - Other lobsterman (current) drug therapy - Cough INPATIENT VISIT TRACKING (12 MO.) No inpatient visits to display in this time frame [id number]
[2020-04-11] MEDS ORDERED: METHOCARBAMOL750 MG PO (13:07)
[2020-04-11] MEDS ORDERED: DICLOFENAC SOD100 G1 TOP (13:08)
[2020-04-11] MEDS ORDERED: DEXTROAMP-AMPHE10 MG PO (13:08)
[2020-04-11] MEDS ORDERED: LAMOTRIGINE100 MG PO (13:09)
[2020-04-11] MEDS ORDERED: LEVOFLOXACIN500 MG PO (14:13)
== END 2020-04-11 14:45 | disposition home or self-care (01) ==
LOC: ED 11:39
DX: J18.9 Pneumonia, unspecified organism (principal); J45.909 Unspecified asthma, uncomplicated; Z88.5 Allergy status to narcotic agent; Z79.899 Other long term (current) drug therapy; Z20.828 Contact with and (suspected) exposure to other viral communicable diseases
CPT/HCPCS: 71045; 80053; 83605; 85025; 85379; 96365; 96375; 99285-25; C9803; J0696; J1885; U0003

== ENCOUNTER 2020-05-23 00:23 | Emergency (ER) | payer OTHER ==
[~2020-05-23] VITALS: Ht 180.3 cm; Wt 95.3 kg
[~2020-05-23 00:23] MED LIST changes: +DEXTROAMP-AMPHE10 MG PO; +DICLOFENAC SOD100 G1 TOP; +LAMOTRIGINE100 MG PO; +LEVOFLOXACIN500 MG PO; +METHOCARBAMOL750 MG PO
--- OUTSIDE RECORDS SUMMARY | 2020-05-23 00:28 | XMS ---
PreManage Notification: AARON BONILLA Security Telephone Appointment Clerk Events No recent Security Events currently on file CRITERIA MET - [facility] CARE PROVIDERS NUNO SCHULZ Nurse Practitioner: Family 02/24/2020-Current PHONE: [phone] ABELINO SIDDIQI Physician 06/26/2019-Current PHONE: [phone] JUNIOR FLEMING Nurse Practitioner: Psychiatric/Mental 02/24/2020-[employer]ech[employer] PHONE: [phone] Fredy has no Care Guidelines for this patient. E.D. VISIT COUNT (12 MO.) 6 [facility] TOTAL 6 NOTE: Visits indicate total known visits. ED/UCC VISIT TRACKING (12 MO.) 05/23/2020 00:25 [facility] [place] TYPE: Emergency COMPLAINT: - VOMITING 04/11/2020 11:40 [facility] TYPE: Emergency COMPLAINT: - FEVER, SHORTNESS OF BREATH DIAGNOSES: - Unspecified asthma, uncomplicated - Other intermediate school teacher (current) drug therapy - Allergy status to narcotic agent - Contact with and (suspected) exposure to other viral communicable diseases - Pneumonia, unspecified organism - Allergy status to narcotic agent 02/22/2020 11:[address] [facility] [place] TYPE: Emergency COMPLAINT: - NERVE PAIN DIAGNOSES: - Allergy status to narcotic agent - Myalgia, unspecified site - Pneumonia, unspecified organism - Pain in thoracic spine - Allergy status to narcotic agent - Other intermediate school teacher (current) drug therapy 02/05/2020 22:43 [facility] [place] TYPE: Emergency COMPLAINT: - TROUBLE BREATHING, SKIN IRRITATION DIAGNOSES: - Other m[facility] (current) drug therapy - Dyspnea, unspecified - Other chest pain - Allergy status to narcotic agent - Cough - Allergy status to narcotic agent 06/25/2019 18:33 [facility] [place] TYPE: Emergency COMPLAINT: - SOB/COUGH DIAGNOSES: - Allergy status to narcotic agent - Other intermediate school teacher (current) drug therapy - Lobar pneumonia, unspecified organism - Cough - Dorsalgia, unspecified 06/23/2019 13:25 [facility] [place] TYPE: Emergency COMPLAINT: - ABD PAIN DIAGNOSES: - Pneumonia, unspecified organism - Allergy status to narcotic agent - Other mcc (current) drug therapy - Cough INPATIENT VISIT TRACKING (12 MO.) No inpatient visits to display in this time frame [id number]
[2020-05-23] MEDS ORDERED: VENTOLIN HFA18 GM INH (00:43)
[2020-05-23] MEDS ORDERED: ZOFRAN4 MG PO (02:11)
== END 2020-05-23 02:20 | disposition home or self-care (01) ==
LOC: ED 00:23
DX: K29.00 Acute gastritis without bleeding (principal); F19.10 Other psychoactive substance abuse, uncomplicated; J45.909 Unspecified asthma, uncomplicated; Z88.5 Allergy status to narcotic agent; Z79.899 Other long term (current) drug therapy
CPT/HCPCS: 80053; 81001; 83690; 85025; 96374; 99284-25; J2405; J7030

== ENCOUNTER 2020-06-08 15:36 | Emergency (ER) | payer OTHER ==
[~2020-06-08] VITALS: Ht 180.3 cm; Wt 96.6 kg
[~2020-06-08 15:36] MED LIST changes: +VENTOLIN HFA18 GM INH
--- OUTSIDE RECORDS SUMMARY | 2020-06-08 15:38 | XMS ---
PreManage Notification: AARON BONILLA Security Outside Dealer Sales Representative Events 1 event(s) in the past 18 months Most recent security events: Elopement at [facility] 05/25/2020 16:26 - Other Details: PATIENT LWBS. CRITERIA MET - 6 ED Visits in 6 Months - [facility] - [facility] - 2 Visits in 30 Days CARE PROVIDERS NUNO SCHULZ Nurse Practitioner: 02/24/2020-Current PHONE: [phone] ABELINO SIDDIQI Physician 06/26/2019-Current PHONE: [phone] JUNIOR FLEMING Nurse Practitioner: Psychiatric/Mental 02/24/2020-Sand [employer] PHONE: [phone] Fredy has no Care Guidelines for this patient. Care History Medical/Surgical 05/25/2020 [facility] - [facility] CALLED NUMBER [phone]- WRONG PHONE NUMBER TO CONTACT PATIENT- A ANSWERED AND STATED Ghazal WALKER DOES NOT RESIDE AT THAT NUMBER. - PATIENT WOULD BENEFIT FROM [facility]- [facility] WOULD LIKE TO PROVIDE RESOURCES \T\nbsp; PATIENT WOULD BENEFIT FROM [facility]-PLEASE DISCUSS \T\middot;\T\nbsp; PLEASE CONTACT [facility]- IF PATIENT ACCEPTS SERVICES- [phone] \T\middot;\ T\nbsp; [facility] CAN PROVIDE PATIENT WITH CUSTOMER SOLUTIONS SPECIALIST AND HELP WITH COMMUNITY RESOURCES E.D. VISIT COUNT (12 MO.) 8 [facility]. TOTAL 8 NOTE: Visits indicate total known visits. ED/UCC VISIT TRACKING (12 MO.) 06/08/2020 15:36 [facility] [place] TYPE: Emergency COMPLAINT: - ABD PAIN, SOB 05/25/2020 16:26 [facility] [place] TYPE: Emergency COMPLAINT: - SOB, BACK/ARM PAIN NON INJURY 05/23/2020 00:25 [facility] [place] TYPE: Emergency COMPLAINT: - VOMITING DIAGNOSES: - Other prison (current) drug therapy - Allergy status to narcotic agent - Acute gastritis without bleeding - Unspecified asthma, uncomplicated - Other psychoactive substance abuse, uncomplicated - Nausea with vomiting, unspecified 04/11/2020 11:40 [facility] [place] TYPE: Emergency COMPLAINT: - FEVER, SHORTNESS OF BREATH DIAGNOSES: - Unspecified asthma, uncomplicated - Other prison (current) drug therapy - Allergy status to narcotic agent - Contact with and (suspected) exposure to other viral communicable diseases - Pneumonia, unspecified organism - Allergy status to narcotic agent 02/22/2020 11:[address] [facility] [place] TYPE: Emergency COMPLAINT: - NERVE PAIN DIAGNOSES: - Allergy status to narcotic agent - Myalgia, unspecified site - Pneumonia, unspecified organism - Pain in thoracic spine - Allergy status to narcotic agent - Other prison (current) drug therapy 02/05/2020 22:[address] [facility] [place] TYPE: Emergency COMPLAINT: - TROUBLE BREATHING, SKIN IRRITATION DIAGNOSES: - Other prison (current) drug therapy - Dyspnea, unspecified - Other chest pain - Allergy status to narcotic agent - Cough - Allergy status to narcotic agent 06/25/2019 18:[address] [facility] [place] TYPE: Emergency COMPLAINT: - SOB/COUGH DIAGNOSES: - Allergy status to narcotic agent - Other prison (current) drug therapy - Lobar pneumonia, unspecified organism - Cough - Dorsalgia, unspecified 06/23/2019 13:[address] [facility] [place] TYPE: Emergency COMPLAINT: - ABD PAIN DIAGNOSES: - Pneumonia, unspecified organism - Allergy status to narcotic agent - Other prison (current) drug therapy - Cough INPATIENT VISIT TRACKING (12 MO.) No inpatient visits to display in this time frame [id number]
== END 2020-06-08 18:54 | disposition home or self-care (01) ==
LOC: ED 15:36
DX: R10.30 Lower abdominal pain, unspecified (principal); J45.909 Unspecified asthma, uncomplicated; Z88.5 Allergy status to narcotic agent; Z79.899 Other long term (current) drug therapy
CPT/HCPCS: 74177; 80053; 81001; 83690; 85025; 99284-25; J1885

== ENCOUNTER 2020-09-17 16:44 | Emergency (ER) | payer OTHER ==
[~2020-09-17] VITALS: Ht 180.3 cm; Wt 96.6 kg
--- OUTSIDE RECORDS SUMMARY | 2020-09-17 16:46 | XMS ---
PreManage Notification: AARON BONILLA Security Body Fitter Events 1 event(s) in the past 18 months Most recent security events: Elopement at [facility] 05/25/2020 16:26 - Other Details: PAT[facility] LWBS[facility] NUN[facility] SCHUL[facility] Nurse Practitioner: 02/24/2020-Current PHONE: [phone] ABELINO SIDDIQI Physician 06/26/2019-Current PHONE: [phone] JUNIOR FLEMING Nurse Practitioner: Psychiatric/Mental 02/24/2020-[employer] PHONE: [phone] Fredy has no Care Guidelines for this patient. Care History Medical/Surgical 06/12/2020 [facility] - W CALLED PATIENT- NO ANSWER- LEFT A MESSAGE FOR A RETURN CALL 05/25/2020 [facility] - W CALLED NUMBER [phone]- WRONG PHONE NUMBER TO CONTACT PATIENT- A ANSWERED AND STATED Ghazal WALKER DOES NOT RESIDE AT THAT NUMBER. - PATIENT WOULD BENEFIT FROM [facility]- [facility] WOULD LIKE TO PROVIDE RESOURCES \T\nbsp; PATIENT WOULD BENEFIT FROM [facility]-PLEASE DISCUSS \T\middot;\T\nbsp; PLEASE CONTACT [facility]- IF PATIENT ACCEPTS SERVICES- [phone] \T\middot;\ T\nbsp; [facility] CAN PROVIDE PATIENT WITH MANAGER EMBALMER FUNERAL DIRECTOR AND HELP WITH COMMUNITY RESOURCES E.D. VISIT COUNT (12 MO.) 7 [facility]. TOTAL 7 NOTE: Visits indicate total known visits. ED/UCC VISIT TRACKING (12 MO.) 09/17/2020 16:45 [facility] [place] TYPE: Emergency COMPLAINT: - LT LEG PAIN/ NON INJURY 06/08/2020 15:36 [facility] [place] TYPE: Emergency COMPLAINT: - ABD PAIN, SOB DIAGNOSES: - Allergy status to narcotic agent - Unspecified asthma, uncomplicated - Lower abdominal pain, unspecified - Other mill roll operator (current) drug therapy 05/25/2020 16:26 [facility] [place] TYPE: Emergency COMPLAINT: - SOB, BACK/ARM PAIN NON INJURY 05/23/2020 00:25 [facility] [place] TYPE: Emergency COMPLAINT: - VOMITING DIAGNOSES: - Other mill roll operator (current) drug therapy - Allergy status to narcotic agent - Acute gastritis without bleeding - Unspecified asthma, uncomplicated - Other psychoactive substance abuse, uncomplicated - Nausea with vomiting, unspecified 04/11/2020 11:40 [facility] [place] TYPE: Emergency COMPLAINT: - FEVER, SHORTNESS OF BREATH DIAGNOSES: - Unspecified asthma, uncomplicated - Other mill roll operator (current) drug therapy - Allergy status to narcotic agent - Contact with and (suspected) exposure to other viral communicable diseases - Pneumonia, unspecified organism - Allergy status to narcotic agent 02/22/2020 11:20 [facility] [place] TYPE: Emergency COMPLAINT: - NERVE PAIN DIAGNOSES: - Allergy status to narcotic agent - Myalgia, unspecified site - Pneumonia, unspecified organism - Pain in thoracic spine - Allergy status to narcotic agent - Other mill roll operator (current) drug therapy 02/05/2020 22:43 [facility] [place] TYPE: Emergency COMPLAINT: - TROUBLE BREATHING, SKIN IRRITATION DIAGNOSES: - Other alf (current) drug therapy - Dyspnea, unspecified - Other chest pain - Allergy status to narcotic agent - Cough - Allergy status to narcotic agent INPATIENT VISIT TRACKING (12 MO.) No inpatient visits to display in this time frame [id number]
[2020-09-17] MEDS ORDERED: LORAZEPAM1 MG PO (17:41)
[2020-09-17] MEDS ORDERED: BUSPIRONE HCL10 MG PO (17:41)
[2020-09-17] MEDS ORDERED: FLUTICASONE-SA1 EAC4 IH (17:41)
== END 2020-09-17 19:12 | disposition home or self-care (01) ==
LOC: ED 16:44
DX: M79.89 Other specified soft tissue disorders (principal); G89.29 Other chronic pain; J45.909 Unspecified asthma, uncomplicated; Z88.5 Allergy status to narcotic agent; Z79.899 Other long term (current) drug therapy
CPT/HCPCS: 73590; 73610; 99283-25

== ENCOUNTER 2021-01-07 10:16 | Emergency (ER) | payer OTHER ==
[~2021-01-07] VITALS: Ht 180.3 cm; Wt 93.4 kg
[~2021-01-07 10:16] MED LIST changes: +BUSPIRONE HCL10 MG PO; +FLUTICASONE-SA1 EAC4 IH
--- OUTSIDE RECORDS SUMMARY | 2021-01-07 10:20 | XMS ---
PreManage Notification: AARON BONILLA Security Research Contracts Supervisor Events 1 event(s) in the past 18 months Most recent security events: Elopement at [facility] 05/25/2020 16:26 - Other Details: PATIENT LWBS. CRITERIA MET - [facility] CARE PROVIDERS NUNO SCHULZ Nurse Practitioner: 02/24/2020-Current PHONE: [phone] LUCIA HILARIO Physician Credit Product Analyst 09/23/2020-Current PHONE: [phone] ABELION SIDDIQI Physician Credit Product Analyst 06/26/2019-Current PHONE: [phone] JUNIOR FLEMING Nurse Practitioner: Psychiatric/Mental 02/24/2020-[employer] PHONE: [phone] Fredy has no Care Guidelines for this patient. Care History Medical/Surgical 06/12/2020 [facility] CALLED PATIENT- NO ANSWER- LEFT A MESSAGE FOR A RETURN CALL 05/25/2020 [facility] CALLED NUMBER [phone]- WRONG PHONE NUMBER TO CONTACT PATIENT- A CARLOS EDUARDOY ANSWERED AND STATED Ghazal WALKER DOES NOT RESIDE AT THAT NUMBER. - PATIENT WOULD BENEFIT FROM [facility]- [facility] WOULD LIKE TO PROVIDE RESOURCES \T\nbsp; PATIENT WOULD BENEFIT FROM [facility]-PLEASE DISCUSS \T\middot;\T\nbsp; PLEASE CONTACT [facility] [employer] [facility]\ T[facility]- IF PATIENT ACCEPTS SERVICES- [phone] \T\middot;\ T\nbsp; [facility] CAN PROVIDE PATIENT WITH STEWARD/STEWARDESS CHIEF CARGO VESSEL AND HELP WITH COMMUNITY RESOURCES E.D. VISIT COUNT (12 MO.) [address] [place] [address] TOTAL 8 NOTE: Visits indicate total known visits. ED/UCC VISIT TRACKING (12 MO.) 01/07/2021 10:18 [facility] [place] TYPE: Emergency COMPLAINT: - R FLANK PAIN, NAUSEA 09/17/2020 16:45 [facility] [place] TYPE: Emergency COMPLAINT: - LT LEG PAIN/ NON INJURY DIAGNOSES: - Pain in right lower leg - Other mcfp (current) drug therapy - Pain in left lower leg - Allergy status to narcotic agent - Unspecified asthma, uncomplicated - Other chronic pain - Other specified soft tissue disorders 06/08/2020 15:36 [facility] [place] TYPE: Emergency COMPLAINT: - ABD PAIN, SOB DIAGNOSES: - Allergy status to narcotic agent - Unspecified asthma, uncomplicated - Lower abdominal pain, unspecified - Other mcfp (current) drug therapy 05/25/2020 16:26 [facility] [place] TYPE: Emergency COMPLAINT: - SOB, BACK/ARM PAIN NON INJURY 05/23/2020 00:25 [facility] [place] TYPE: Emergency COMPLAINT: - VOMITING DIAGNOSES: - Other watcher automat long goods (current) drug therapy - Allergy status to narcotic agent - Acute gastritis without bleeding - Unspecified asthma, uncomplicated - Other psychoactive substance abuse, uncomplicated - Nausea with vomiting, unspecified 04/11/2020 11:40 [facility] [place] TYPE: Emergency COMPLAINT: - FEVER, SHORTNESS OF BREATH DIAGNOSES: - Unspecified asthma, uncomplicated - Other watcher automat long goods (current) drug therapy - Allergy status to narcotic agent - Contact with and (suspected) exposure to other viral communicable diseases - Pneumonia, unspecified organism - Allergy status to narcotic agent 02/22/2020 11:20 [facility] [place] TYPE: Emergency COMPLAINT: - NERVE PAIN DIAGNOSES: - Allergy status to narcotic agent - Myalgia, unspecified site - Pneumonia, unspecified organism - Pain in thoracic spine - Allergy status to narcotic agent - Other mcfp (current) drug therapy 02/05/2020 22:43 [facility] [place] TYPE: Emergency COMPLAINT: - TROUBLE BREATHING, SKIN IRRITATION DIAGNOSES: - Other mcfp (current) drug therapy - Dyspnea, unspecified - Other chest pain - Allergy status to narcotic agent - Cough - Allergy status to narcotic agent INPATIENT VISIT TRACKING (12 MO.) No inpatient visits to display in this time frame [id number]
[2021-01-07] MEDS ORDERED: DESVENLAFAXINE100 M3 PO (12:17)
[2021-01-07] MEDS ORDERED: METHOCARBAMOL750 MG PO (12:45)
[2021-01-07] MEDS ORDERED: METHYLPREDNISOLO4 M1 PO (12:48)
== END 2021-01-07 13:15 | disposition home or self-care (01) ==
LOC: ED 10:16
DX: M54.5 Low back pain (principal); M54.6 Pain in thoracic spine; J45.909 Unspecified asthma, uncomplicated; Z88.5 Allergy status to narcotic agent; Z79.899 Other long term (current) drug therapy
CPT/HCPCS: 81001; 99284

== ENCOUNTER 2021-01-14 16:13 | Emergency (ER) | payer OTHER ==
[~2021-01-14] VITALS: Ht 180.3 cm; Wt 93.4 kg
[~2021-01-14 16:13] MED LIST changes: +DESVENLAFAXINE100 M3 PO; +METHYLPREDNISOLO4 M1 PO
[2021-01-14] MEDS ORDERED: ALPRAZOLAM1 MG PO (16:49)
--- OUTSIDE RECORDS SUMMARY | 2021-01-14 17:10 | XMS ---
PreManage Notification: AARON BONILLA Security Tour Production Supervisor Events 1 event(s) in the past 18 months Most recent security events: Elopement at [facility] 05/25/2020 16:26 - Other Details: PATIENT LWBS. CRITERIA MET - [facility] - 2 Visits in 30 Days CARE PROVIDERS NUNO SCHULZ Nurse Practitioner: 02/24/2020-Current PHONE: [phone] LUCIA HILARIO Physician Plsql Developer 09/23/2020-Current PHONE: [phone] ABELINO SIDDIQI Physician Plsql Developer 06/26/2019-Current PHONE: [phone] JUNIOR FLEMING Nurse Practitioner: Psychiatric/Mental 02/24/2020-Current Health PHONE: [phone] Fredy has no Care Guidelines for this patient. Care History Medical/Surgical 06/12/2020 [facility] - W CALLED PATIENT- NO ANSWER- LEFT A MESSAGE FOR A RETURN CALL 05/25/2020 [facility] - W CALLED NUMBER [phone]- WRONG PHONE NUMBER TO CONTACT PATIENT- A ANSWERED AND STATED Ghazal WALKER DOES NOT RESIDE AT THAT NUMBER. - PATIENT WOULD BENEFIT FROM [facility]- [facility] WOULD LIKE TO PROVIDE RESOURCES \T\nbsp; PATIENT WOULD BENEFIT FROM [facility]-PLEASE DISCUSS \T\middot;\T\nbsp; PLEASE CONTACT [facility] A\ T\amp;D SERVICES- IF PATIENT ACCEPTS SERVICES- [phone] \T\middot;\ T\nbsp; [facility] CAN PROVIDE PATIENT WITH SUPERVISOR PASTRY AND HELP WITH COMMUNITY RESOURCES E.D. VISIT COUNT (12 MO.) 9 [facility] TOTAL 9 NOTE: Visits indicate total known visits. ED/UCC VISIT TRACKING (12 MO.) 01/14/2021 16:14 [facility] [place] TYPE: Emergency COMPLAINT: - LOWER BACK PAIN, ANXIETY, SOB 01/07/2021 10:18 [facility] [place] TYPE: Emergency COMPLAINT: - R FLANK PAIN, NAUSEA DIAGNOSES: - Allergy status to narcotic agent - Pain in thoracic spine - Dorsalgia, unspecified - Unspecified asthma, uncomplicated - Other halfway (current) drug therapy - Low back pain 09/17/2020 16:45 [facility] [place] TYPE: Emergency COMPLAINT: - LT LEG PAIN/ NON INJURY DIAGNOSES: - Pain in right lower leg - Other ferry terminal supervisor (current) drug therapy - Pain in left lower leg - Allergy status to narcotic agent - Unspecified asthma, uncomplicated - Other chronic pain - Other specified soft tissue disorders 06/08/2020 15:36 [facility] [place] TYPE: Emergency COMPLAINT: - ABD PAIN, SOB DIAGNOSES: - Allergy status to narcotic agent - Unspecified asthma, uncomplicated - Lower abdominal pain, unspecified - Other ferry terminal supervisor (current) drug therapy 05/25/2020 16:26 [facility] [place] [place] TYPE: Emergency COMPLAINT: - SOB, BACK/ARM PAIN NON INJURY 05/23/2020 00:25 [facility] [place] TYPE: Emergency COMPLAINT: - VOMITING DIAGNOSES: - Other ferry terminal supervisor (current) drug therapy - Allergy status to narcotic agent - Acute gastritis without bleeding - Unspecified asthma, uncomplicated - Other psychoactive substance abuse, uncomplicated - Nausea with vomiting, unspecified 04/11/2020 11:40 [facility] [place] TYPE: Emergency COMPLAINT: - FEVER, SHORTNESS OF BREATH DIAGNOSES: - Unspecified asthma, uncomplicated - Other halfway (current) drug therapy - Allergy status to narcotic agent - Contact with and (suspected) exposure to other viral communicable diseases - Pneumonia, unspecified organism - Allergy status to narcotic agent 02/22/2020 11:20 [facility] [place] TYPE: Emergency COMPLAINT: - NERVE PAIN DIAGNOSES: - Allergy status to narcotic agent - Myalgia, unspecified site - Pneumonia, unspecified organism - Pain in thoracic spine - Allergy status to narcotic agent - Other halfway (current) drug therapy 02/05/2020 22:[address] [facility] [place] TYPE: Emergency COMPLAINT: - TROUBLE BREATHING, SKIN IRRITATION DIAGNOSES: - Other ferry terminal supervisor (current) drug therapy - Dyspnea, unspecified - Other chest pain - Allergy status to narcotic agent - Cough - Allergy status to narcotic agent INPATIENT VISIT TRACKING (12 MO.) No inpatient visits to display in this time frame [email or web address]
== END 2021-01-14 18:42 | disposition home or self-care (01) ==
LOC: ED 16:13
DX: U07.1 COVID-19 (principal); J45.909 Unspecified asthma, uncomplicated; Z88.5 Allergy status to narcotic agent; Z79.899 Other long term (current) drug therapy
CPT/HCPCS: 99284

== ENCOUNTER 2021-01-17 10:25 | Emergency (ER) | payer OTHER ==
[~2021-01-17] VITALS: Ht 180.3 cm; Wt 93.4 kg
--- OUTSIDE RECORDS SUMMARY | 2021-01-17 10:28 | XMS ---
PreManage Notification: AARON BONILLA Security Associate Medical Director Events 1 event(s) in the past 18 months Most recent security events: Elopement at [facility] 05/25/2020 16:26 - Other Details: PATIENT LWBS. CRITERIA MET - PDMP - - 2 Visits in 30 Days CARE PROVIDERS NUNO SCHULZ Nurse Practitioner: 02/24/2020-Current PHONE: [phone] LUCIA HILARIO Physician Tool Mechanic 09/23/2020-Current PHONE: [phone] ABELINO SIDDIQI Physician Tool Mechanic 06/26/2019-Current PHONE: [phone] JUNIOR FLEMING Nurse Practitioner: Psychiatric/Mental 02/24/2020-Current Health PHONE: [phone] Fredy has no Care Guidelines for this patient. Care History Medical/Surgical 06/12/2020 [facility]- NO ANSWER- LEFT A MESSAGE FOR A RETURN CALL 05/25/2020 [facility] CALLED NUMBER [phone]- WRONG PHONE NUMBER TO CONTACT PATIENT- A ANSWERED AND STATED Ghazal WALKER DOES NOT RESIDE AT THAT NUMBER. - PATIENT WOULD BENEFIT FROM [facility]- [facility] WOULD LIKE TO PROVIDE RESOURCES \T\nbsp; PATIENT WOULD BENEFIT FROM [facility]-PLEASE DISCUSS \T\middot;\T\nbsp; PLEASE CONTACT [facility] A\ T\amp;D SERVICES- IF PATIENT ACCEPTS SERVICES- [phone] \T\middot;\ T\nbsp; [facility] CAN PROVIDE PATIENT WITH BULB PLANTER AND HELP WITH COMMUNITY RESOURCES E.D. VISIT COUNT (12 MO.) 10 [facility] TOTAL 10 NOTE: Visits indicate total known visits. ED/UCC VISIT TRACKING (12 MO.) 01/17/2021 10:26 [facility] [place] TYPE: Emergency COMPLAINT: - COVID +, FEVER 01/14/2021 16:14 [facility] [place] TYPE: Emergency COMPLAINT: - LOWER BACK PAIN, ANXIETY, SOB 01/07/2021 10:18 [facility] [place] TYPE: Emergency COMPLAINT: - R FLANK PAIN, NAUSEA DIAGNOSES: - Allergy status to narcotic agent - Pain in thoracic spine - Dorsalgia, unspecified - Unspecified asthma, uncomplicated - Other intermediate (current) drug therapy - Low back pain 09/17/2020 16:45 [facility] [place] TYPE: Emergency COMPLAINT: - LT LEG PAIN/ NON INJURY DIAGNOSES: - Pain in right lower leg - Other intermediate (current) drug therapy - Pain in left lower leg - Allergy status to narcotic agent - Unspecified asthma, uncomplicated - Other chronic pain - Other specified soft tissue disorders 06/08/2020 15:36 [facility] [place] TYPE: Emergency COMPLAINT: - ABD PAIN, SOB DIAGNOSES: - Allergy status to narcotic agent - Unspecified asthma, uncomplicated - Lower abdominal pain, unspecified - Other terminal computer operator (current) drug therapy 05/25/2020 16:26 [facility] [place] TYPE: Emergency COMPLAINT: - SOB, BACK/ARM PAIN NON INJURY 05/23/2020 00:25 [facility] [place] TYPE: Emergency COMPLAINT: - VOMITING DIAGNOSES: - Other intermediate (current) drug therapy - Allergy status to narcotic agent - Acute gastritis without bleeding - Unspecified asthma, uncomplicated - Other psychoactive substance abuse, uncomplicated - Nausea with vomiting, unspecified 04/11/2020 11:[address] [facility] [place] TYPE: Emergency COMPLAINT: - FEVER, SHORTNESS OF BREATH DIAGNOSES: - Unspecified asthma, uncomplicated - Other terminal computer operator (current) drug therapy - Allergy status to narcotic agent - Contact with and (suspected) exposure to other viral communicable diseases - Pneumonia, unspecified organism - Allergy status to narcotic agent 02/22/2020 11:[address] [facility] [place] TYPE: Emergency COMPLAINT: - NERVE PAIN DIAGNOSES: - Allergy status to narcotic agent - Myalgia, unspecified site - Pneumonia, unspecified organism - Pain in thoracic spine - Allergy status to narcotic agent - Other terminal computer operator (current) drug therapy 02/05/2020 22:[address] [facility] [place] TYPE: Emergency COMPLAINT: - TROUBLE BREATHING, SKIN IRRITATION DIAGNOSES: - Other terminal computer operator (current) drug therapy - Dyspnea, unspecified - Other chest pain - Allergy status to narcotic agent - Cough - Allergy status to narcotic agent INPATIENT VISIT TRACKING (12 MO.) No inpatient visits to display in this time frame [id number]
[2021-01-17] MEDS ORDERED: ONDANSETRON ODT4 MG PO (16:04)
== END 2021-01-17 16:10 | disposition home or self-care (01) ==
LOC: ED 10:25
DX: U07.1 COVID-19 (principal); R11.10 Vomiting, unspecified; J45.909 Unspecified asthma, uncomplicated; Z88.5 Allergy status to narcotic agent; Z79.899 Other long term (current) drug therapy
CPT/HCPCS: 80053; 85025; 96374; 96375; 99284-25; J1885; J2405; J7030

== ENCOUNTER 2021-06-15 07:21 | Emergency (ER) | payer OTHER ==
[~2021-06-15] VITALS: Ht 180.3 cm; Wt 90.7 kg
[~2021-06-15 07:21] MED LIST changes: +ONDANSETRON ODT4 MG PO
--- OUTSIDE RECORDS SUMMARY | 2021-06-15 07:24 | XMS ---
PreManage Notification: AARON BONILLA Security Freezer Unloader Events 1 event(s) in the past 18 months Most recent security events: Elopement at [facility] 05/25/2020 16:26 - Other Details: PATIENT LWBS. CRITERIA MET - PDMP CARE PROVIDERS NUNO SCHULZ Nurse Practitioner: 02/24/2020-Current PHONE: [phone] LUCIA HILARIO Physician Bladder Trimmer 09/23/2020-Current PHONE: [phone] ABELINO SIDDIQI Physician Bladder Trimmer 06/26/2019-Current PHONE: [phone] JUNIOR FLEMING Nurse Practitioner: Psychiatric/Mental 02/24/2020-[employer] PHONE: [phone] Fredy has no Care Guidelines for this patient. Care History Medical/Surgical 06/12/2020 [facility] CALLED PATIENT- NO ANSWER- LEFT A MESSAGE FOR A RETURN CALL 05/25/2020 [facility] CALLED NUMBER [phone]- WRONG PHONE NUMBER TO CONTACT PATIENT- A CARLOS EDUARDOY ANSWERED AND STATED Ghazal WALKER DOES NOT RESIDE AT THAT NUMBER. - PATIENT WOULD BENEFIT FROM [facility]- [facility] WOULD LIKE TO PROVIDE RESOURCES \T\nbsp; PATIENT WOULD BENEFIT FROM [facility]-PLEASE DISCUSS \T\middot;\T\nbsp; PLEASE CONTACT [email or web address] A\ T\amp;D SERVICES- IF PATIENT ACCEPTS SERVICES- [phone] \T\middot;\ T\nbsp; [facility] CAN PROVIDE PATIENT WITH FOUNTAIN PEN TURNER AND HELP WITH COMMUNITY RESOURCES E.D. VISIT COUNT (12 MO.) 5 [facility] TOTAL 5 NOTE: Visits indicate total known visits. ED/UCC VISIT TRACKING (12 MO.) 06/15/2021 07:22 [facility] [place] TYPE: Emergency COMPLAINT: - R SIDE FLANK PAIN, CHEST PAIN, ASPIRATED 01/17/2021 10:26 [facility] [place] TYPE: Emergency COMPLAINT: - COVID +, FEVER DIAGNOSES: - Vomiting, unspecified - Unspecified asthma, uncomplicated - Other rodent exterminator (current) drug therapy - COVID-19 - Allergy status to narcotic agent 01/14/2021 16:14 [facility] [place] TYPE: Emergency COMPLAINT: - LOWER BACK PAIN, ANXIETY, SOB DIAGNOSES: - COVID-19 - Allergy status to narcotic agent - Pneumonia, unspecified organism - Other rodent exterminator (current) drug therapy - Unspecified asthma, uncomplicated 01/07/2021 10:18 [facility] [place] TYPE: Emergency COMPLAINT: - R FLANK PAIN, NAUSEA DIAGNOSES: - Allergy status to narcotic agent - Pain in thoracic spine - Dorsalgia, unspecified - Unspecified asthma, uncomplicated - Other rodent exterminator (current) drug therapy - Low back pain 09/17/2020 16:45 [facility] [place] TYPE: Emergency COMPLAINT: - LT LEG PAIN/ NON INJURY DIAGNOSES: - Pain in right lower leg - Other prison (current) drug therapy - Pain in left lower leg - Allergy status to narcotic agent - Unspecified asthma, uncomplicated - Other chronic pain - Other specified soft tissue disorders INPATIENT VISIT TRACKING (12 MO.) No inpatient visits to display in this time frame [id number]
[2021-06-15] MEDS ORDERED: MAPAP500 MG PO (08:37)
[2021-06-15] MEDS ORDERED: VALIUM5 MG PO (08:37)
[2021-06-15] MEDS ORDERED: LIDODERM1 EACH TOP (08:37)
--- NOTE | 2021-06-15 13:49 | EKG ---
[facility] [address] [facility] [place] [address] Signed Normal sinus rhythm Possible Anterior infarct (cited on or before 05-FEB-2020) Abnormal ECG When compared with ECG of 05-FEB-2020 23:19, Incomplete right bundle branch block is no longer present Confirmed by EDWARD NIÑO MD ([id number]) on 06/15/2021 1:49:07 PM Electronically Signed By: EDWARD NIÑO MD 06/15/21 1349 PATIENT NAME: AARON BONILLA Electrocardiogram DATE OF : 81 PHYSICIAN: EDWARD NIÑO MD REPORT #: [id number] REPORT IS CONFIDENTIAL AND NOT TO BE RELEASED WITHOUT AUTHORIZATION
== END 2021-06-15 10:28 | disposition home or self-care (01) ==
LOC: ED 07:21
DX: R07.89 Other chest pain (principal); M54.50 Low back pain, unspecified; R05.9 Cough, unspecified; R51.9 Headache, unspecified; J45.909 Unspecified asthma, uncomplicated; Z20.822 Contact with and (suspected) exposure to COVID-19; Z88.5 Allergy status to narcotic agent; Z79.899 Other long term (current) drug therapy
CPT/HCPCS: 36415; 71046; 80053; 81001; 83690; 83735; 84484; 85025; 93005; 93010; 96374; 96375; 99285-25; A9270; C9803; J0780; J1885; U0003

== ENCOUNTER 2021-07-23 11:00 | Emergency (ER) | payer OTHER ==
[~2021-07-23] VITALS: Ht 180.3 cm; Wt 90.7 kg
[~2021-07-23 11:00] MED LIST changes: +LIDODERM1 EACH TOP; +MAPAP500 MG PO; +VALIUM5 MG PO
--- OUTSIDE RECORDS SUMMARY | 2021-07-23 11:04 | XMS ---
PreManage Notification: AARON BONILLA Security Electrophysiology Scientist Events 1 event(s) in the past 18 months Most recent security events: Elopement at [facility] 05/25/2020 16:26 - Other Details: PATIENT LWBS. CRITERIA MET - PDMP CARE PROVIDERS NUNO SCHULZ Nurse Practitioner: 02/24/2020-Current PHONE: [phone] LUCIA HILARIO Physician Rubber And Pounder 09/23/2020-Current PHONE: [phone] ABELINO SIDDIQI Physician Rubber And Pounder 06/26/2019-Current PHONE: [phone] JUNIOR FLEMING Nurse Practitioner: Psychiatric/Mental 02/24/2020-[facility] PHONE: [phone] Fredy has no Care Guidelines for this patient. Care History Medical/Surgical 06/12/2020 [facility] CALLED PATIENT- NO ANSWER- LEFT A MESSAGE FOR A RETURN CALL 05/25/2020 [facility] - [facility] CALLED NUMBER [phone]- WRONG PHONE NUMBER TO CONTACT PATIENT- A CARLOS EDUARDOY ANSWERED AND STATED Ghazal WALKER DOES NOT RESIDE AT THAT NUMBER. - PATIENT WOULD BENEFIT FROM [facility]- [facility] WOULD LIKE TO PROVIDE RESOURCES \T\nbsp; PATIENT WOULD BENEFIT FROM [facility]-PLEASE DISCUSS \T\middot;\T\nbsp; PLEASE CONTACT [employer] A\ T\amp;D SERVICES- IF PATIENT ACCEPTS SERVICES- [phone] \T\middot;\ T\nbsp; [facility] CAN PROVIDE PATIENT WITH COIN MACHINE SERVICER REPAIRER AND HELP WITH COMMUNITY RESOURCES E.D. VISIT COUNT (12 MO.) 6 [facility] TOTAL 6 NOTE: Visits indicate total known visits. ED/UCC VISIT TRACKING (12 MO.) 07/23/2021 11:01 [facility] [place] TYPE: Emergency COMPLAINT: - L SIDE LUNG PAIN 06/15/2021 07:22 [facility] [place] TYPE: Emergency COMPLAINT: - R SIDE FLANK PAIN, CHEST PAIN, ASPIRATED DIAGNOSES: - Allergy status to narcotic agent - Other chest pain - Other long term care phlebotomist (current) drug therapy - COUGH, UNSPECIFIED - LOW BACK PAIN, UNSPECIFIED - Headache, unspecified - Unspecified asthma, uncomplicated 01/17/2021 10:26 [facility] [place] TYPE: Emergency COMPLAINT: - COVID +, FEVER DIAGNOSES: - Vomiting, unspecified - Unspecified asthma, uncomplicated - [place] [facility] drug therapy - COVID-19 - Allergy status to narcotic agent 01/14/2021 16:14 [facility] [place] TYPE: Emergency COMPLAINT: - LOWER BACK PAIN, ANXIETY, SOB DIAGNOSES: - COVID-19 - Allergy status to narcotic agent - Pneumonia, unspecified organism - Other [place] [facility] (current) drug therapy - Unspecified asthma, uncomplicated 01/07/2021 10:18 [facility] [place] TYPE: Emergency COMPLAINT: - R FLANK PAIN, NAUSEA DIAGNOSES: - Allergy status to narcotic agent - Pain in thoracic spine - Dorsalgia, unspecified - Unspecified asthma, uncomplicated - Other long term care phlebotomist (current) drug therapy - Low back pain 09/17/2020 16:45 [facility] [place] TYPE: Emergency COMPLAINT: - LT LEG PAIN/ NON INJURY DIAGNOSES: - Pain in right lower leg - Other [place] [facility] (current) drug therapy - Pain in left lower leg - Allergy status to narcotic agent - Unspecified asthma, uncomplicated - Other chronic pain - Other specified soft tissue disorders INPATIENT VISIT TRACKING (12 MO.) No inpatient visits to display in this time frame [id number]
[2021-07-23] MEDS ORDERED: OMEPRAZOLE40 MG PO (13:53)
[2021-07-23] MEDS ORDERED: VENTOLIN HFA18 GM INH (14:54)
[2021-07-23] MEDS ORDERED: PREDNISONE20 MG PO (14:54)
== END 2021-07-23 15:00 | disposition home or self-care (01) ==
LOC: ED 11:00
DX: J45.901 Unspecified asthma with (acute) exacerbation (principal); Z88.5 Allergy status to narcotic agent; Z79.899 Other long term (current) drug therapy
CPT/HCPCS: 71046; 99284-25; J7512

== ENCOUNTER 2022-04-26 13:04 | Emergency (ER) | payer OTHER ==
[~2022-04-26] VITALS: Ht 180.3 cm; Wt 98.2 kg
[~2022-04-26 13:04] MED LIST changes: +OMEPRAZOLE40 MG PO; +PREDNISONE20 MG PO
--- OUTSIDE RECORDS SUMMARY | 2022-04-26 13:06 | XMS ---
PreManage Notification: AARON BONILLA Security Communications Technician Events 2 event(s) in the past 18 months Most recent security events: Elopement at [facility] 12/14/2021 15:33 - Patient eloped before treatment completed. - Patient with suicidal and/or homicidal ideations eloped. - Patient eloped with IV in place. Details: PATIENT LWBS Elopement at [facility] 07/26/2021 20:55 Details: [facility] Nurse Practitioner: 02/24/2020-Current PHONE: [phone] LUCIA HILARIO Physician 09/23/2020-Current PHONE: [phone] ABELINO SIDDIQI Physician Goring Cutter Current PHONE: [phone] JUNIOR FLEMING Nurse Practitioner: Psychiatric/Mental 02/24/2020-[facility] PHONE: [phone] Fredy has no Care Guidelines for this patient. Care History Medical/Surgical 06/12/2020 [facility] CALLED [facility]- NO ANSWER- LEFT A MESSAGE FOR A RETURN CALL 05/25/2020 [facility] - [facility] CALLED NUMBER [phone]- WRONG PHONE NUMBER TO CONTACT PATIENT- A LADY ANSWERED AND STATED Ghazal WALKER DOES NOT RESIDE AT THAT NUMBER. - PATIENT WOULD BENEFIT FROM [facility]- [facility] WOULD LIKE TO PROVIDE RESOURCES \T\nbsp; PATIENT WOULD BENEFIT FROM [facility]-PLEASE DISCUSS \T\middot;\T\nbsp; PLEASE CONTACT [facility]\ T\amp;D SERVICES- IF PATIENT ACCEPTS SERVICES- [phone] \T\middot;\ T\nbsp; [facility] CAN PROVIDE PATIENT WITH MANAGER INVESTIGATIONS AND HELP WITH COMMUNITY RESOURCES E.D. VISIT COUNT (12 MO.) 5 [facility] TOTAL 5 NOTE: Visits indicate total known visits. ED/UCC VISIT TRACKING (12 MO.) 04/26/2022 13:05 [facility] [place] TYPE: Emergency COMPLAINT: - L HAND INJURY 12/14/2021 15:33 [facility] [place] TYPE: Emergency COMPLAINT: - ETREMITY PAIN/INJURY 07/26/2021 20:55 [facility] [place] TYPE: Emergency COMPLAINT: - SOB 07/23/2021 11:01 [facility] [place] TYPE: Emergency COMPLAINT: - L SIDE LUNG PAIN DIAGNOSES: - Unspecified asthma with (acute) exacerbation - Allergy status to narcotic agent - Other predatory animal exterminator (current) drug therapy - Cough, unspecified 06/15/2021 07:22 [facility] [place] TYPE: Emergency COMPLAINT: - R SIDE FLANK PAIN, CHEST PAIN, ASPIRATED DIAGNOSES: - COUGH, UNSPECIFIED - Other predatory animal exterminator (current) drug therapy - Other chest pain - Unspecified asthma, uncomplicated - Low back pain, unspecified - LOW BACK PAIN, UNSPECIFIED - Cough, unspecified - Contact with and (suspected) exposure to COVID-19 - Allergy status to narcotic agent - Headache, unspecified INPATIENT VISIT TRACKING (12 MO.) No inpatient visits to display in this time frame [email or web address]
[2022-04-26] MEDS ORDERED: ADDERALL XR 2525 MG PO (13:29)
[2022-04-26] MEDS ORDERED: ALPRAZOLAM0.5 MG PO (13:29)
== END 2022-04-26 14:16 | disposition home or self-care (01) ==
LOC: ED 13:04
DX: S67.22XA Crushing injury of left hand, initial encounter (principal); W23.0XXA Caught, crushed, jammed, or pinched between moving objects, initial encounter; S62.664A Nondisplaced fracture of distal phalanx of right ring finger, initial encounter for closed fracture; J45.909 Unspecified asthma, uncomplicated; Z88.5 Allergy status to narcotic agent; Z79.899 Other long term (current) drug therapy
CPT/HCPCS: 73130; 73140; 99283-25; A9270

== ENCOUNTER 2022-06-10 15:34 | Emergency (ER) | payer OTHER ==
[~2022-06-10] VITALS: Ht 180.3 cm; Wt 97.5 kg
[~2022-06-10 15:34] MED LIST changes: +ADDERALL XR 2525 MG PO; +ALPRAZOLAM0.5 MG PO
--- OUTSIDE RECORDS SUMMARY | 2022-06-10 15:36 | XMS ---
PreManage Notification: AARON BONILLA Security Knobber Events 2 event(s) in the past 18 months Most recent security events: Elopement at [facility] 12/14/2021 15:33 - Patient eloped before treatment completed. - Patient with suicidal and/or homicidal ideations eloped. - Patient eloped with IV in place. Details: PATIENT LWBS Elopement at [facility] 07/26/2021 20:55 Details: PATIENT LWBS CRITERIA MET - [facility] CARE PROVIDERS -[place]- Dentist: Escrow Secretary [facility] PHONE: [phone] NUNO SCHULZ Nurse Practitioner: Family 02/24/2020-Current PHONE: [phone] LUCIA HILARIO Physician Sap Mobility Architect 09/23/2020-Current PHONE: [phone] ABELINO SIDDIQI Physician Sap Mobility Architect Current PHONE: [phone] JUNIOR FLEMING Nurse Practitioner: Psychiatric/Mental 02/24/2020-[facility] PHONE: [phone] Fredy has no Care Guidelines for this patient. Care History Medical/Surgical 06/12/2020 [facility] - [facility] CALLED PATIENT- NO ANSWER- LEFT A MESSAGE FOR A RETURN CALL 05/25/2020 [facility] - [facility] CALLED NUMBER [phone]- WRONG PHONE NUMBER TO CONTACT PATIENT- A ANSWERED AND STATED Ghazal WALKER DOES NOT RESIDE AT THAT NUMBER. - PATIENT WOULD BENEFIT FROM [facility]- [facility] WOULD LIKE TO PROVIDE RESOURCES \T\nbsp; PATIENT WOULD BENEFIT FROM [facility]-PLEASE DISCUSS \T\middot;\T\nbsp; P[facility]CT [facility]\ T\amp;D SERVICES- IF PATIENT ACCEPTS SERVICES- [phone] \T\middot;\ T\nbsp; [facility] CAN PROVIDE PATIENT WITH RAPID EXTRACTOR OPERATOR AND HELP WITH COMMUNITY RESOURCES E.D. VISIT COUNT (12 MO.) [address] [facility] TOTAL 6 NOTE: Visits indicate total known visits. ED/UCC VISIT TRACKING (12 MO.) 06/10/2022 15:35 [facility] [place] TYPE: Emergency COMPLAINT: - CHEST PAIN, PASSED OUT 04/26/2022 13:05 [facility] [place] TYPE: Emergency COMPLAINT: - L HAND INJURY DIAGNOSES: - Nondisplaced fracture of distal phalanx of right ring finger, initial encounter for closed fracture - Crushing injury of left hand, initial encounter - Unspecified asthma, uncomplicated - Other intermediate teacher (current) drug therapy - Crushing injury of left hand, initial encounter - Allergy status to narcotic agent - Caught, crushed, jammed, or pinched between moving objects, initial encounter 12/14/2021 15:33 [facility] [place] TYPE: Emergency COMPLAINT: - ETREMITY PAIN/INJURY 07/26/2021 20:55 [facility] [place] TYPE: Emergency COMPLAINT: - SOB 07/23/2021 11:01 [facility] [place] TYPE: Emergency COMPLAINT: - L SIDE LUNG PAIN DIAGNOSES: - Other penitentiary (current) drug therapy - Cough, unspecified - Unspecified asthma with (acute) exacerbation - Allergy status to narcotic agent 06/15/2021 07:22 [facility] [place] TYPE: Emergency COMPLAINT: - R SIDE FLANK PAIN, CHEST PAIN, ASPIRATED DIAGNOSES: - Contact with and (suspected) exposure to COVID-19 - Allergy status to narcotic agent - Headache, unspecified - COUGH, UNSPECIFIED - Other penitentiary (current) drug therapy - Other chest pain - Unspecified asthma, uncomplicated - Low back pain, unspecified - LOW BACK PAIN, UNSPECIFIED - Cough, unspecified INPATIENT VISIT TRACKING (12 MO.) No inpatient visits to display in this time frame [email or web address]
--- NOTE | 2022-06-12 21:59 | EKG ---
[facility] [address] [place] [address] Signed Sinus tachycardia Septal infarct , age undetermined Abnormal ECG No previous ECGs available Confirmed by Douglas Puri MD () on 06/12/2022 9:59:37 PM Electronically Signed By: DOUGLAS PURI MD 06/12/222158 PATIENT NAME: AARON BONILLA Electrocardiogram DATE OF : [birth year] PHYSICIAN: DOUGLAS PURI MD REPORT #: [id number] REPORT IS CONFIDENTIAL AND NOT TO BE RELEASED WITHOUT AUTHORIZATION
== END 2022-06-10 17:52 | disposition home or self-care (01) ==
LOC: ED 15:34
DX: R55 Syncope and collapse (principal); J45.909 Unspecified asthma, uncomplicated; Z88.5 Allergy status to narcotic agent; Z79.899 Other long term (current) drug therapy
CPT/HCPCS: 36415; 71045; 80053; 83735; 84484; 85025; 93005; 93010; 99285-25; A9270

== ENCOUNTER 2023-05-17 02:46 | Emergency (ER) | payer OTHER ==
[~2023-05-17] VITALS: Ht 185.4 cm; Wt 103.2 kg
[2023-05-17 03:14] LABS: BASOPHILS 2.1 % (0-2); EOSINOPHILS 0.9 % (0-6); HEMATOCRIT 47.8 % (35.0-50.0); HEMOGLOBIN 16.3 g/dL (12.0-18.0); LYMPHOCYTES 32.6 % (24-44); MCH 29.6 (27-36); MCHC 34.1 g/dl (30-36); MCV 86.7 fl (81-99); MONOCYTES 7.3 % (0-12); NEUTROPHILS 57.1 % (39-80); PLATELET COUNT 219 K/uL (140-440); RBC 5.52 M/ul (4.3-5.7); RDW 13.5 (10.5-15.0)
[2023-05-17 03:24] LABS: ALBUMIN 3.7 g/dL (3.4-5.0); ALBUMIN/GLOBULIN RATIO 1.16 (1.1-2.4); ANION GAP 16.1 (7-21); BILIRUBIN, TOTAL 1.3 ng/dL (0.2-1.0); CALCIUM 8.1 mg/dL (8.5-10.1); CREATININE, SERUM 1.1 mg/dL (0.70-1.30); POTASSIUM 4.1 mmol/L (3.5-5.1); PROTEIN, TOTAL 6.9 g/dL (6.4-8.2)
[2023-05-17 03:51] LABS: ABO O; ANTIBODY SCREEN NEGATIVE; RH POSITIVE
[2023-05-17 04:23] LABS: BILIRUBIN, URINE NEGATIVE (negative); BLOOD/HGB, URINE NEGATIVE (Negative); KETONE, URINE TRACE (Negative); LEUK ESTERASE, URINE NEGATIVE (negative); NITRITE, URINE NEGATIVE (negative)
[2023-05-17 04:37] LABS: AMPHETAMINES, URINE POSITIVE (NEGATIVE); BARBITURATES, URINE NEGATIVE (NEGATIVE); BENZODIAZEPINE, URINE POSITIVE (NEGATIVE); BUPRENORPHINE, URINE NEGATIVE (NEGATIVE); CANNABINOID, URINE NEGATIVE (NEGATIVE); COCAINE, URINE NEGATIVE (NEGATIVE); ECSTASY, URINE NEGATIVE (NEGATIVE); FENTANYL, URINE NEGATIVE (NEGATIVE); METHADONE, URINE NEGATIVE (NEGATIVE); OPIATES, URINE NEGATIVE (NEGATIVE); OXYCODONE, URINE NEGATIVE (NEGATIVE); PHENCYCLIDINE, URINE NEGATIVE (NEGATIVE)
[2023-05-17] MEDS ORDERED: HYDROCODON-ACE1 EA10 PO (05:44)
[2023-05-17 05:50] VITALS: BP 126/77
== END 2023-05-17 05:58 | disposition home or self-care (01) ==
LOC: ED 02:46 → EDBD 02:47 → ED 05:58
PROVIDERS: Family Medicine
DX: S01.422A Laceration with foreign body of left cheek and temporomandibular area, initial encounter (principal); S16.1XXA Strain of muscle, fascia and tendon at neck level, initial encounter; S06.0X0A Concussion without loss of consciousness, initial encounter; V89.2XXA Person injured in unspecified motor-vehicle accident, traffic, initial encounter
CPT/HCPCS: 12052; 36415; 70450; 70486; 71260; 72125; 72131; 74177; 80053; 80307; 81003; 85025; 86850; 86900; 86901; 90471; 90715; 99284-25; A9270; G0480; J0690; J1885; J2270; J2405; J3360; J7121; Q9967

== ENCOUNTER 2025-04-03 18:56 | Emergency (ER) | payer OTHER ==
[~2025-04-03] VITALS: Ht 185.4 cm; Wt 92.0 kg
[~2025-04-03 18:56] MED LIST changes: +HYDROCODON-ACE1 EA10 PO
[2025-04-03] MEDS ORDERED: ASPIRIN 81 MG CHEW PO ONE (19:45)
[2025-04-03 19:48] LABS: BASOPHILS 0.6 % (0.2-1.2); EOSINOPHILS 1.0 % (0.8-7.0); LYMPHOCYTES 23.2 % (21.8-53.1); MCH 29.5 PG (25.7-32.2); MCHC 34.3 g/dL (32.3-36.5); MCV 86.1 fL (79.0-92.2); MONOCYTES 7.1 % (5.3-12.2); NEUTROPHILS 67.9 % (34.0-67.9); RBC 5.39 M/uL (4.63-6.08)
[2025-04-03 20:21] LABS: ALT (SGPT) 11.0 U/L (14-59); AST (SGOT) 15.0 U/L (15-37); GLOMERULAR FILTRATION RATE,EST 104.0 mL/min (>60); PROTEIN, TOTAL 7.5 g/dL (6.4-8.2); UREA NITROGEN 11.0 mg/dL (7-18)
[2025-04-03 20:48] VITALS: BP 126/74
--- NOTE | 2025-04-04 12:12 | EKG ---
[facility] [address] [facility] [place] [address] Signed Normal sinus rhythm with sinus arrhythmia Low voltage QRS Incomplete right bundle branch block Cannot rule out Anterior infarct (cited on or before 03-APR-2025) Abnormal ECG When compared with ECG of 21-OCT-2022 07:37, Nonspecific T wave abnormality now evident in Anterior leads Confirmed by Crow Stover DO ([id number]) on 04/04/2025 12:12:17 PM Electronically Signed By: CROW STOVER DO 04/04/251211 PATIENT NAME: AARON BONILLA Electrocardiogram DATE OF : [birth year] PHYSICIAN: CROW STOVER DO REPORT #: [id number] REPORT IS CONFIDENTIAL AND NOT TO BE RELEASED WITHOUT AUTHORIZATION
== END 2025-04-03 20:49 | disposition home or self-care (01) ==
LOC: ED 18:56
PROVIDERS: Emergency Medicine
DX: R07.9 Chest pain, unspecified (principal); J45.909 Unspecified asthma, uncomplicated
CPT/HCPCS: 36415; 71045; 80053; 83735; 84484; 85025; 85379; 93005; 93010; 99284-25; A9270